=== PATIENT | female | born 2000 | race Caucasian/White ===

== ENCOUNTER → 2018-03-27 13:22 | Outpatient (CLI) | payer OTHER, SELFPAY ==
[2018-03-27 15:59] LABS: Absolute Lymphocyte Count 3.37 X10^3/ul (0.83-4.51); Basophil# 0.05 X10^3/uL; Basophil% 0.4 % (0-1); Eosinophil# 0.42 X10^3/uL; Eosinophils% 3.1 % (0-5); Lymphocyte # 3.37 X10^3/ul (4.0); Lymphocyte % 25.2 % (19-41); Mean Corp Hgb Conc 30.6 g/gl (32-36); Mean Corpuscular Hgb 21.4 pg (27.0-32.0); Mean Corpuscular Volume 70.2 fL (81-99); Mean Platelet Vol. 10.6 fl (6.2-12.0); Monocyte# 0.53 X10^3/uL; Neutrophil # 8.96 X10^3/uL (2.7-7.7); Neutrophil % 67.2 % (47-70); Platelet Count 383 K/mm3 (150-450); RBC Distribution Width SD 43.3 fl (35.1-43.9); Red Blood Count 5.13 M/mm3 (4.2-5.4); White Blood Count 13.4 K/mm3 (4.4-11.0)
[2018-03-27 16:00] LABS: Anion Gap 9 (5-15); BUN 11 mg/dL (7-18); Calcium,Total 8.7 mg/dL (8.5-10.1); Chloride 110 mmol/L (98-107); Cholesterol 170 mg/dL (200); Creatinine, Serum 0.74 mg/dL (0.55-1.02); Differential Indicated SCAN CRITERIA MET; EST Glomerular Filtration Rate 108 mL/min (>60); Est Glom Filt Rate - Afr Amer 130 mL/min (>60); Glucose 84 mg/dL (74-106); High Density Lipoprotein 42 mg/dL; POSITIVE COUNT NO; POSITIVE DIFFERENTIAL NO; POSITIVE MORPHOLOGY YES; Potassium 3.9 mmol/L (3.5-5.1); Sodium Level 143 mmol/L (136-145); Thyroid Stim Hormone (TSH) 0.54 uIU/mL (0.358-3.74); Triglycerides 88 mg/dL; Very Low Density Lipoprotein 18 mg/dL (5-40)
[2018-03-27 16:02] LABS: Hemoglobin A1c 5.4 % (4.2-6.3)
[2018-03-27 16:25] LABS: Anisocytosis RARE; Platelet Estimate ADEQUATE (ADEQ)
== END ==
PROVIDERS: Family Provider Family Medicine; PCP Family Medicine; Visit Provider Family Medicine
DX: E28.2 Polycystic ovarian syndrome (principal); R73.01 Impaired fasting glucose
CPT/HCPCS: 36415; 80048; 80061; 83036; 84443; 85025

== ENCOUNTER → 2018-09-05 10:43 | Outpatient (CLI) | payer BC, SELFPAY | PROVIDERS: Family Provider Family Medicine; PCP Family Medicine; Visit Provider Family Medicine | DX: N30.90 Cystitis, unspecified without hematuria (principal) | CPT/HCPCS: 87086 ==

== ENCOUNTER → 2019-04-23 | Outpatient (CLI) | payer BC, SELFPAY | END | disposition home or self-care (01) | LOC: LABSPEC 09:38 | PROVIDERS: Family Provider Family Medicine; PCP Family Medicine; Visit Provider Family Medicine | DX: R33.9 Retention of urine, unspecified (principal) | CPT/HCPCS: 87086 ==

== ENCOUNTER → 2019-12-21 | Outpatient (CLI) | payer BC, SELFPAY ==
[2019-12-21 18:02] LABS: Absolute Lymphocyte Count 3.27 X10^3/uL (0.83-4.51); Absolute Neutrophil Count 7.5 X10^3/uL (2.0-7.7); Basophil# 0.09 X10^3/uL; Basophil% 0.8 % (0-1); Eosinophil# 0.16 X10^3/uL; Eosinophils% 1.3 % (0-5); Hematocrit 36.7 % (37-47); Hemoglobin 10.9 g/dL (12.0-15.0); Lymphocyte # 3.27 X10^3/ul (4.0); Lymphocyte % 27.5 % (19-41); Mean Corp Hgb Conc 29.7 g/dL (32-36); Mean Corpuscular Hgb 20.6 pg (27.0-32.0); Mean Corpuscular Volume 69.5 fL (81-99); Mean Platelet Vol. 12.2 fl (6.2-12.0); Monocyte# 0.84 X10^3/uL; Monocyte% 7.1 % (0-10); NRBC Flagged by Analyzer 0 % (0-5); Neutrophil # 7.52 X10^3/uL (2.7-7.7); Platelet Count 370 K/mm3 (150-450); RBC Distribution Width CV 16.4 % (11.6-14.6); RBC Distribution Width SD 40.2 fl (35.1-43.9); Red Blood Count 5.28 M/mm3 (4.2-5.4); White Blood Count 11.9 K/mm3 (4.4-11.0)
[2019-12-21 18:03] LABS: Anion Gap 7 (5-15); BUN 8 mg/dL (7-18); BUN/Creat Ratio 12.3 RATIO (10-20); Calcium,Total 9.1 mg/dL (8.5-10.1); Chloride 110 mmol/L (98-107); Creatinine, Serum 0.65 mg/dL (0.55-1.02); EST Glomerular Filtration Rate 122 mL/min (>60); Est Glom Filt Rate - Afr Amer 148 mL/min (>60); Glucose 75 mg/dL (74-106); Iron 13 ug/dL (50-170); Potassium 3.9 mmol/L (3.5-5.1); Sodium Level 140 mmol/L (136-145)
[2019-12-21 18:08] LABS: Vitamin B12 412 pg/mL (211-911); Vitamin D,25 Hydroxy 30.2 ng/mL
[2019-12-21 18:29] LABS: Hemoglobin A1c 5.6 % (4.2-6.3)
== END | disposition home or self-care (01) ==
PROVIDERS: Visit Provider Family Medicine
DX: D50.9 Iron deficiency anemia, unspecified (principal); K90.9 Intestinal malabsorption, unspecified; F40.10 Social phobia, unspecified; E88.81 Metabolic syndrome and other insulin resistance; R53.83 Other fatigue
CPT/HCPCS: 80048; 82306; 82607; 83036; 83540; 85025

== ENCOUNTER → 2020-06-15 10:23 | Outpatient (CLI) | payer BC, SELFPAY ==
[2020-06-15 12:22] LABS: Absolute Lymphocyte Count 2.37 X10^3/uL (0.83-4.51); Absolute Neutrophil Count 4.7 X10^3/uL (2.0-7.7); Basophil# 0.06 X10^3/uL; Basophil% 0.8 % (0-1); Eosinophil# 0.05 X10^3/uL; Eosinophils% 0.7 % (0-5); Hematocrit 36.2 % (37-47); Hemoglobin 10.8 g/dL (12.0-15.0); Lymphocyte # 2.37 X10^3/ul (4.0); Lymphocyte % 31.4 % (19-41); Mean Corp Hgb Conc 29.8 g/dL (32-36); Mean Corpuscular Hgb 20.6 pg (27.0-32.0); Mean Corpuscular Volume 69.1 fL (81-99); Monocyte# 0.33 X10^3/uL; Monocyte% 4.4 % (0-10); NRBC Flagged by Analyzer 0 % (0-5); Neutrophil # 4.73 X10^3/uL (2.7-7.7); Neutrophil % 62.6 % (47-70); Platelet Count 277 K/mm3 (150-450); RBC Distribution Width CV 19.3 % (11.6-14.6); RBC Distribution Width SD 46.7 fl (35.1-43.9); Red Blood Count 5.24 M/mm3 (4.2-5.4); White Blood Count 7.6 K/mm3 (4.4-11.0)
[2020-06-15 12:44] LABS: Anion Gap 6 (5-15); BUN 9 mg/dL (7-18); BUN/Creat Ratio 12.2 RATIO (10-20); Calcium,Total 8.6 mg/dL (8.5-10.1); Chloride 115 mmol/L (98-107); Creatinine, Serum 0.74 mg/dL (0.55-1.02); EST Glomerular Filtration Rate 105 mL/min (>60); Est Glom Filt Rate - Afr Amer 127 mL/min (>60); Glucose 85 mg/dL (74-106); Iron 16 ug/dL (50-170); Potassium 3.7 mmol/L (3.5-5.1); Sodium Level 141 mmol/L (136-145); Thyroid Stim Hormone (TSH) 1.07 uIU/mL (0.358-3.74)
[2020-06-15 18:47] LABS: Vitamin B12 440 pg/mL (211-911)
== END ==
PROVIDERS: PCP Family Medicine; Visit Provider Family Medicine
DX: D50.9 Iron deficiency anemia, unspecified (principal); E55.9 Vitamin D deficiency, unspecified; F40.10 Social phobia, unspecified; R42 Dizziness and giddiness
CPT/HCPCS: 36415; 80048; 82306; 82607; 83540; 84443; 85025

== ENCOUNTER 2020-07-06 09:00 | Outpatient (RCR) | payer BC, SELFPAY ==
--- NOTE | 2020-07-06 09:00 | BH.COMM_ITS ---
Communication Note - Communication with Client Communication Note: Met with pt to complete intial paperwork. No changes since pre-admission screening. Completed [place] Suicide Screening with low risk. Denies any SI in the past month.
--- NOTE | 2020-07-06 09:02 | BH.SGPN.GN ---
Behaviors/Verbalizations/Mental Status: []Client alert and oriented, casual dress, hygiene tended to. Eye contact fair. Motor activity appropriate. Speech within normal limits. Affect flat, mood depressed. Thoughts linear, logical, no signs of hallucinations or delusions. Reviewed client?s symptom tracker, pt denies current suicidal thoughts or intention to date. Client Response/Progress/Benefit: []Pt responded well to session AEB pt openly sharing thoughts and feelings and appeared to listen attentively to others. Pt stated she is seeking help because she is stressed about college. Pt shared she has been told she isn't allowed to return to her current college due to breaking academic probation rules. Pt stated he previous college also won't accept her back. Pt reported she is feeling hopeless because doesn't know what is going to happen if can't finish school. Pt stated she struggled in school this past semester due to her mental health. Pt seemed to benefit from support and validation from peers. Pt's first day in IOP. Pt to continue IOP to increase healthy coping, improve daily functioning and prevent decompensation. Narrative Note: []
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
--- NOTE | 2020-07-06 10:15 | BH.SGPN.GN ---
Behaviors/Verbalizations/Mental Status: []Client alert and oriented, casually dressed and groomed. Eye contact fair. Motor activity appropriate. Speech within normal limits. Affect constricted, anxious, dysthymic. Thoughts linear, logical, no signs of hallucinations or delusions. Client Response/Progress/Benefit: []Client new to IOP program. She was an engaged participant AEB client taking notes, providing some input throughout discussion, and attentively listening to peers. Client connected with how having a negative perspective can keep you stuck, prevent a person from getting help, and cause worsening mental health symptoms. Client shared that ?your peer group can have a big influence on your perspective and keep you negative?. Worked with group to identify how negative perspective can impact mental health which included: self-fulfilling prophecy, maintain unhealthy mental health cycles, and lead to more negative thinking.?Client attentive and taking notes as group discussed ways a positive perspective can impact mental health such as: be more willing to keep trying when faced with setbacks, be more open to new experiences and new relationships, as well as improve self-confidence. Client appeared to benefit from increasing understanding of mental health benefits of a positive perspective and potential consequences to progress when perspective is negative. Client will continue IOP tx to prevent decompensation, improve emotional regulation skills, and improve daily functioning. Narrative Note: []
[2020-07-06 10:58] VITALS: BP 104/67; PULSE 92
--- NOTE | 2020-07-06 11:17 | BH.SGPN.GN ---
Behaviors/Verbalizations/Mental Status: []Eye contact is good. Motor activity is appropriate. Appearance is casual. Speech is Appropriate. Mood is anxious. Affect is flat. Thoughts are linear and logical. No evidence of psychosis. Client Response/Progress/Benefit: []Client was an active participant in group discussion. Attentive during psychoeducation. Active participant in group discussion on the impact of perspective on how we view ourselves. Client worked with the group to develop a working definition of the term strengths and the importance of recognizing one's strengths. Client was given a worksheet and was asked to soboba at least 3 strengths which included: artistic ability, curiosity, and being open-minded. Group then worked together to identify strategies to remind themselves of their strengths and client selected using positive affirmations as their strategy. Benefited from increased awareness of the role of perspective and strengths in daily mental health wellness. Will continue IOP tx to prevent decompensation, improve mood stability, and improve functioning. Narrative Note: []
--- NOTE | 2020-07-08 09:00 | BH.SGPN.GN ---
Behaviors/Verbalizations/Mental Status: [] Eye contact is good. Motor activity is appropriate. Appearance is neat. Speech is Appropriate. Mood is anxious. Affect is congruent. Thoughts are linear and logical. No evidence of psychosis. Reviewed daily check in sheet and no reports of suicidal ideations or intent. Client Response/Progress/Benefit: [] Pt spoke when prompted. Attentive. Pt disclosed how anxiety impacts her daily life and leads to isolation. Pt reports fear of driving and making left-hand turns. States that her fear is so bad that she has her groceries delivered and relys on her support to get anything. Being in IOP is not that bad however the drive in the morning here is the most anxious. Reports that she thinks about all the worst case scenarios all group about the drive home. Also discussed her anxiety when in public feeling that other are watching her and judging her. States I feel like I'm not good at being an adult. Numerous cognitive distortions. No progress noted per pt report. Group was supportive which was beneficial. Plan is to remain in IOP to prevent decompensation, improve functioning, and increase health coping skills for anxiety. Narrative Note: []
--- NOTE | 2020-07-08 10:15 | BH.SGPN.GN ---
Behaviors/Verbalizations/Mental Status: []Client alert and oriented, casually dressed and appropriately groomed. Eye contact fair to good. Motor activity appropriate. Speech within normal limits. Affect constricted, mood anxious and euthymic. Thoughts linear, logical, no signs of hallucinations or delusions. Client Response/Progress/Benefit: []Client mostly engaged during session AEB taking notes, providing some input, and listening attentively to others. Client listened as peers worked on defining goals and brainstorming the benefits of goal setting. Benefits included: improved motivation, increased self-confidence, sense of accomplishment, and less stress. Discussed connecting with several of the benefits shared by fellow participants. Contributed some and actively listened as group discussed the barriers that keep people from either setting or following through with goals. Client identified connecting with the personal barriers shared such as negative self-talk, not prioritizing own needs, and lack of resources. Reported that for her limited financial resources have kept her from working towards personal goals. Client attentive and contributing during psychoeducation on SMART goals. Appeared to benefit from learning the mental health benefits of setting goals using SMART criteria. Progress limited as client new to IOP program. Client to continue IOP tx to promote healthy coping, improve mood stability and symptom management, and prevent decompensation. Narrative Note: []
--- NOTE | 2020-07-08 11:25 | BH.SGPN.GN ---
Behaviors/Verbalizations/Mental Status: [] Eye contact is good. Motor activity is appropriate. Appearance is neat. Speech is Appropriate. Mood is anxious. Affect is congruent. Thoughts are linear and logical. No evidence of psychosis. Client Response/Progress/Benefit: [] Pt was an active participant in group discussions and activities. Along with group members was able to identify barriers during group beach ball activity (over-thinking, environmental restrictions, self-doubt, and what-if thinking) and strategies they utilized to overcome these barriers (communicating, encouraging others). Pt choose not to share her SMART goal for the week, however did appear to be writing during the group. Benefited from education on goal-setting. Narrative Note: []
--- NOTE | 2020-07-11 10:19 | BH.SGPN.GN ---
Behaviors/Verbalizations/Mental Status: []Client alert and oriented, neatly dressed and groomed. Eye contact good. Motor activity appropriate. Speech within normal limits. Affect flat, mood anxious and dysthymic. Thoughts linear, logical, no signs of hallucinations or delusions. Client Response/Progress/Benefit: []Client was an attentive participant in group discussion and engaged during the activity. Client was quiet throughout session, but she took notes and nodded. Client agreed with peers that there are internal and external forces in life which impact personal growth. Group worked together to come up with common negative forces in life which can hold them back from growth. These included; cognitive distortions, toxic people, not setting boundaries, and holding in emotions. Group then worked together to identify common positive forces which help them grow. These included; healthy coping skills, positive support, positive self-talk, and self-care. Benefited AEB increased insight and awareness on the impact of negative and positive forces on mental wellness. First week of IOP tx. Will continue IOP tx to prevent decompensation, learn and apply healthy coping skills, and improve daily functioning that has been impaired due to anxiety. Narrative Note: []
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
== END 2020-07-11 23:59 ==
LOC: BHIOP 09:00
PROVIDERS: PCP Family Medicine; Referring Provider Psychiatry & Neurology Psychiatry; Visit Provider Psychiatry & Neurology Psychiatry
DX: F31.81 Bipolar II disorder (principal); F42.2 Mixed obsessional thoughts and acts; F43.10 Post-traumatic stress disorder, unspecified; F41.8 Other specified anxiety disorders
CPT/HCPCS: H0035; 90834; 90853

== ENCOUNTER 2020-07-13 09:00 | Outpatient (RCR) | payer BC, SELFPAY ==
[2020-07-12 00:45] VITALS: BP 104/67; PULSE 92
--- NOTE | 2020-07-13 11:11 | BH.SGPN.GN ---
Behaviors/Verbalizations/Mental Status: []Client alert and oriented, neatly dressed and groomed. Eye contact fair. Motor activity appropriate. Speech soft Affect flat, mood anxious. Thoughts linear, logical, no signs of hallucinations or delusions. Client Response/Progress/Benefit: []Client engaged participant as evidenced by client taking notes throughout discussion and listening attentively to peers. Client participated in the discussion of how each resiliency component can help increase personal resiliency. Client identified current resiliency traits client currently possesses and how these can continue to help client in treatment. Client identified personal resilience traits to include accepting change is a part of living, moving towards goals, and self-awareness. Client shared she has recently experienced several hardships which has made it hard for client to remind herself of personal resilience traits. Client appeared to benefit from connecting with peers and gaining perspective. Progress noted as client shared when prompted. First week of IOP tx. Will continue IOP to prevent decompensation, learn healthy coping skills, and improve mood stability. Narrative Note: []
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
--- NOTE | 2020-07-13 14:01 | BH.PSY.EVA_ITS ---
Initial Treatment Plan - Patient Information Visit Information: ADMISSION DATE: EXPECTED LOS: 4-6 weeks - Problems/Symptoms Problem #1:: Depression Symptom:: sadness, anhedonia, hopelessness, biological disruption of sleep, dec reased concentration, passive thoughts Problem #2:: ANxiety Symptom:: Obssessive thoughts, checking rituals, avoidance, flashbacks, panic attacks
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
--- NOTE | 2020-07-18 10:12 | BH.SGPN.GN ---
Behaviors/Verbalizations/Mental Status: []Client alert and oriented, neatly dressed and groomed. Eye contact good. Motor activity appropriate. Speech within normal limits. Affect constricted, mood anxious. Thoughts linear, logical, no signs of hallucinations or delusions. Client Response/Progress/Benefit: []Client was an active participant as evidenced by providing input and taking notes throughout discussion. Client connected with the discussion about how distorted thought patterns can reinforce mental health symptoms and impact self-worth. Client shared a personal example of a distorted thought pattern that impacted client?s social functioning. Client noted that she connects with all or nothing thinking and client tends to be perfectionistic. Client shared that distortions often lead to self-criticism and can cause a downward spiral. Appeared to benefit from increasing awareness of cognitive distortions and how they can impact emotions and behaviors. Will continue IOP tx to prevent decompensation, improve mood stability, and improve daily functioning that has been impaired by MH symptoms. Narrative Note: []
--- NOTE | 2020-07-18 11:15 | BH.SGPN.GN ---
Behaviors/Verbalizations/Mental Status: []Client alert and oriented, casual dress, hygiene tended to. Eye contact fair. Motor activity appropriate. Speech within normal limits. Affect constricted, mood dysthymic and anxious. Thoughts linear, logical, no signs of hallucinations or delusions Client Response/Progress/Benefit: []Client was an engaged participant AEB client nodding head to others comments, taking notes, and completing worksheet. Client attentive during psychoeducation and additional discussion on cognitive distortions. Client engaged in discussion about how to reframe distorted thoughts into more realistic, rational statements. Client shared her distorted thought is I should be further in my life by now. Client able to reframe distorted thought to I can go at my own pace if I focus on following my SMART goals. Client seemed to benefit from practicing identifying and reframing distorted thoughts. To continue IOP to continue use of healthy coping, decrease anxiety, and prevent decompensation. Narrative Note: []
--- NOTE | 2020-07-22 11:08 | BH.MDN ---
Multi-Disciplinary Note - Note 60-min Individual Time Started:: 09:08 Date: 07/22/20 Purpose of session/treatment goals addressed:: The purpose of this session was to address current symptoms and psychosocial stressors. Another goal was to practice cognitive restructing and develop steps for client's fear ladder. Eye Contact:: Good Motor Activity:: Appropriate Appearance:: Neat Speech:: Soft Mood:: Anxious, Dysthymic Affect:: Congruent - tearful Thoughts:: Linear, Logical, No evidence of hallucinations/delusions noted Staff Interventions:: Therapist used active listening and open-ended questions to explore client's current symptoms and psychosocial stressors. Therapist used strengths perspective to highlight resilience traits. Therapist helped client complete a fear ladder and create a goal for this weekend. Therapist used cognitive restructuring to help client weigh the pros and cons of making a change. Therapist gave client a decisional balance worksheet for homework. Client Response:: Client responded well to session, open to meeting with therapist. Client shared feeling overwhelmed due to family stressors and living situation. Client gave some background on her family dynamic and it appears the environment is toxic per client's report. Client states she has talked with her outpatient therapist about this and together they are working on client applying for disability and housing. Client receptive to this therapist following up with outpatient therapist for continuity of care. Discussed different steps client can begin to take to gain independence. Client receptive to gentle thought challenging and willing to complete a decisional balance exercise for homework. Client worked on her fear ladder during session which ranked anxiety producing activities from least to most anxiety producing. At the bottom of client's ladder were sitting in her car and backing out of her driveway. Client is to work on sitting in her car and visualizing driving while practicing calming skills. Risks/Concerns:: Client denies any suicidal ideations, plan, or intent as of 07/22/20. Client is future oriented and motivated for treatment. Progress Toward Goals/Plan:: Client is demonstrating progress towards treatment goals AEB client's consistent attendance. Client does well in individual sessions with verbalizing symptoms and stressors, but continues to be mostly passive in group. Client endorses severe anxiety that impacts client's ability to work, drive, and socialize. Client reports plan to apply for disability and [place]. Client reports ruminations and fear of driving on a daily basis. Additionally, client has a depressed mood and family stressors that exacerbate symptoms. Will continue IOP tx to prevent decompensation, increase healthy coping skills, and improve daily functioning. Time Stopped:: 10:09
--- NOTE | 2020-07-22 11:20 | BH.SGPN.GN ---
Behaviors/Verbalizations/Mental Status: []Client alert and oriented, neatly dressed and groomed. Eye contact good. Motor activity appropriate. Speech within normal limits. Affect constricted, mood anxious. Thoughts linear, logical, no signs of hallucinations or delusions. Client Response/Progress/Benefit: []Client engaged in session AEB listening attentively to others, providing input when prompted, and taking notes throughout. Client remained attentive during discussion about the 4 A's of managing stress and discussed connecting with the various benefits of each. Client reported she would like to work on the strategy of accepting stressors out of client?s control. Client shared she will remind herself that ?I?ve done what I could.? Client seemed to benefit from increased awareness of the impact of stress on mental health and increasing repertoire of stress management strategies. Progress noted as client?s attendance has been consistent. Will continue IOP tx to prevent decompensation, reduce avoidance behaviors, and improve daily functioning. Narrative Note: []
--- NOTE | 2020-07-26 09:05 | BH.SGPN.GN ---
Behaviors/Verbalizations/Mental Status: [] Eye contact is good. Motor activity is appropriate. Appearance is casual. Speech is Appropriate. Mood is anxious. Affect is congruent. Thoughts are linear and logical. No evidence of psychosis. No reports of suicidal ideations or intent. Client Response/Progress/Benefit: [] Pt participated when prompted. Emotion for today is stressed. Daily symptoms tracker notes 4/5 for depression, anxiety, and anger. She reports that similar to another group member she was given an ultimatum by her grandparents. Pt reports that her grandparents are requesting that she start to pay them rent for living with them. This has caused increased stress and she immediately started looking for a job. She has an interview with [employer] this afternoon. She believes that she will not succeed at this job as she worked there in the past. 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 Ruminations that she is regressing as she will have to work at same job she had when she was 17. Group was supportive and attempted to reframe and challenge pt's thoughts of regression however limited benefit. Pt did report that her anxiety regarding driving has decreased. No progress noted. Will continue in IOP to prevent decompensation, increase healthy coping, and improve functioning. Narrative Note: []
--- NOTE | 2020-07-26 11:07 | BH.SGPN.GN ---
Behaviors/Verbalizations/Mental Status: []Client alert and oriented, neatly dressed and groomed. Eye contact good. Motor activity appropriate. Speech within normal limits. Affect flat, mood anxious and dysthymic. Thoughts linear, logical, no signs of hallucinations or delusions. Client Response/Progress/Benefit: []Client responded well to session AEB client listening attentively to others and providing some input during group discussion on the pay offs and costs of the different communication styles. Client was passive during the activity. Attentive during psychoeducation on assertiveness strategies to improve communication, and client selected an assertiveness skill to practice. Client selected the skill be mindful by remembering the objective of the interaction. Client selected this skill as client shared ?I tend to get sidetracked by old hurts.? Client seemed to benefit from increasing awareness of healthy strategies to improve communication. Will continue IOP tx to prevent decompensation, reduce avoidance behaviors, and improve daily functioning. Narrative Note: []
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
--- NOTE | 2020-07-29 10:00 | BH.SGPN.GN ---
Behaviors/Verbalizations/Mental Status: []Client alert and oriented, well dressed and groomed. Eye contact good. Motor activity appropriate. Speech within normal limits. Affect constricted, mood anxious. Thoughts linear, logical, no signs of hallucinations or delusions. Client Response/Progress/Benefit: []Client engaged in session AEB client providing input throughout discussion, taking notes and listening attentively to peers. Client assisted group with identifying consequences of not having healthy boundaries. This included: feeling overwhelmed, isolation, and worsening mental health symptoms. Client was attentive during psychoeducation on the different kinds of boundaries and gave an example of time boundaries.. Client seemed to benefit from increased awareness of how poor boundaries can negatively impact mental health. Progress noted in client?s report of driving more this week and having reduced anxiety. Will continue IOP tx to continue use of healthy coping, improve daily functioning, and prevent decompensation. Narrative Note: []
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
--- NOTE | 2020-08-02 09:05 | BH.SGPN.GN ---
Behaviors/Verbalizations/Mental Status: [] Eye contact is good. Motor activity is appropriate. Appearance is casual. Speech is Appropriate. Mood is euthymic. Affect is full. Thoughts are linear and logical. No evidence of psychosis. Reviewed daily check in sheet and no reports of suicidal thoughts. Client Response/Progress/Benefit: [] Pt participated when prompted. Attentive. Emotion for today is nervous stating that she has a job interview this afternoon. Daily symptom tracker notes 12/14 for anxiety, depression, and anger. Reports several mental health wins over the weekend stating that she was able to read a whole book, wrote 10,000 words in her book, and feels accomplished. Increased motivation and reports feeling accomplished. Holiday stress and depression related to holidays being different this year due to pandemic. Progress noted per pt report. Benefited from group support and encouragement. Will continue in IOP to maintain gains and increase healthy coping. Narrative Note: []
--- NOTE | 2020-08-02 10:10 | BH.SGPN.GN ---
Behaviors/Verbalizations/Mental Status: []Client alert and oriented, neatly dressed and groomed. Eye contact good. Motor activity appropriate. Speech within normal limits. Affect flat, mood euthymic and anxious. Thoughts linear, logical, no signs of hallucinations or delusions. Client Response/Progress/Benefit: []Client receptive of session, attentive in discussion and activity. Client connected with personal and interpersonal consequences of not managing emotions. Client provided feedback to peers and gave examples of healthy coping skills. Client helped group identify barriers that impact one?s ability to communicate when emotions are high. These barriers included; negative thoughts, anxiety, and shutting down. Group discussed why it is important to be able to communicate effectively when emotions are high. Client participated in the activity and did well to manage emotions throughout. Client appeared to benefit from increasing awareness of how emotions can impact communication and practicing in the moment coping skills. Progress shown AEB client?s report of driving more and having increased motivation. Will continue IOP tx to increase mood stability, reduce avoidance, and improve daily functioning. Narrative Note: []
--- NOTE | 2020-08-03 10:10 | BH.SGPN.GN ---
Behaviors/Verbalizations/Mental Status: [] Eye contact is good. Motor activity is appropriate. Appearance is neat. Speech is Appropriate. Mood is depressed. Affect is flat. Thoughts are linear and logical. Client Response/Progress/Benefit: [] Pt participated in group activity however did not provide verbal input. Attentive during psychoeducation on the stages of change (pre-contemplation, contemplation, preparation, action, and maintain), barriers to make changes, and the benefits of change. Benefited by increasing awareness of the emotions of change as well as benefits and obstacles to making changes. Narrative Note: []
--- NOTE | 2020-08-03 11:05 | BH.SGPN.GN ---
Behaviors/Verbalizations/Mental Status: []Client alert and oriented, neatly dressed and groomed. Eye contact good. Motor activity appropriate. Speech within normal limits. Affect constricted, mood euthymic. Thoughts linear, logical, no signs of hallucinations or delusions. Client Response/Progress/Benefit: []Client responded well to session AEB taking notes and contributing when prompted. Client listened during psychoeducation on the change process and different emotions in each stage of change. Client identified a change client would like to make to improve mental health which was to ?move out of my current living situation? Client shared she wants to work on this as client?s current environment is toxic. Client reports belief he is currently in the preparation stage as client has reached out to resources and found a job, but client has not yet got an apartment. Client identified personal barriers to change and reported she plans to create SMART goals to keep client on track. Appeared to benefit from identifying what stage of change client is in and identifying strategies to overcome barriers. Will continue IOP tx to stabilize mood, improve daily functioning, and increase the use of healthy coping skills. Narrative Note: []
--- NOTE | 2020-08-03 12:09 | PCM.BH.PN_ITS ---
Progress Note Progress Note: History of Present Illness/Interim History: [] Patient is a 19-year-old single female who is seen in follow-up at the [facility] behavioral health IOP program. I last saw the patient 3 weeks ago and at that time I added 2 mg of Abilify in the morning. The patient has not started this medication yet because it she says it took the pharmacy a long time to fill the prescription. Her anxiety seems to be much better and she feels she is learning good skills in the IOP program to manage from her symptoms. Her mood she describes as more stable. She feels that she might be a little hypomanic now and she bases this on the fact that she has been spending more money lately and went on a dating mack which is her thing she does when she is hypomanic. She is getting about 5 hours of sleep at night which is about the same amount of sleep she was getting 2-1/2 weeks ago when I saw her. She has been able to leave the house for the IOP program and does feel again that she is benefiting from it. Her symptoms of obsessions and some of her rituals are a little bit improved. Current Psychiatric Medications: [] Abilify 10 mg p.o. nightly; Topamax 100 mg p.o. nightly; vitamin D2; gabapentin?did not start this yet either. Mental Status Examination: [] The patient is a 19-year-old female who is seen wearing a mask due to the pandemic and is casually dressed and groomed with good hygiene. She has no psychomotor agitation or retardation. Her eye contact is good and her speech is normal rate and rhythm and fluent. There is no rapid or pressured speech. Mood is euthymic. Affect is constricted to tending towards full. Thought process is organized and goal-directed. Thought content: There is evidence of some passive thoughts of but no evidence of suicidal or homicidal ideation. No evidence of hallucinations or delusions. Retyped reality testing is intact. Judgment is intact. Insight: Some present. Impulsivity: Moderate Diagnoses: [] Bergoo I: []. Bipolar 2 disorder, OCD, PTSD, generalized anxiety disorder Bergoo II: [] Mild cluster B traits Bergoo III: [] Status post Sruthi-en-Y obesity surgery, history of PCOS Bergoo IV:[]] Primary support, education, work, financial issues Plan: [] Patient will continue the IOP program at [facility] as the structure, support, education, individual and group therapy will hopefully prevent worsening of the patient's symptoms. She felt safe during the interview and if it anytime she does not feel safe she will let us know or go to the emergency room. The risk, options, possible complications and side effects of the medications were discussed with the patient and she understands and accepts these. She agrees to try to improve her compliance with medication on the weekends and she agrees to start the Abilify 2 mg p.o. in the morning in addition to her evening dose of 10 mg of Abilify. She is encouraged again to set an alarm on her phone to take her evening medications on the weekends. She will continue to follow-up with her outpatient's and psychiatric providers.
--- NOTE | 2020-08-03 13:49 | BH.MDN_ITS ---
Multi-Disciplinary Note - Note 45-min Individual Time Started:: 09:15 Date: 08/03/20 Purpose of session/treatment goals addressed:: The purpose of this session was to address current symptoms and develop a coping skill plan. Other topics included thought challenging. Eye Contact:: Good Motor Activity:: Appropriate Appearance:: Neat Speech:: Appropriate Mood:: Euthymic Affect:: Constricted Thoughts:: Linear, Logical, No evidence of hallucinations/delusions noted Staff Interventions:: Therapist used active listening and gentle thought challenging while exploring client's current stressors and symptoms. Therapist helped client explore warning signs for hypomania and depression as well as develop coping strategies to manage symptoms. Therapist gave client homework to complete the worksheet. Client Response:: Client responded well to session, open to meeting with therapist. Client shared concern that she is experiencing hypomania. Client reports reduced sleep, increased energy, some impulsive spending, and more risk taking behaviors. Client would like to work on developing a plan to better manage her bipolar symptoms. Client created a list of behaviors, things, and thoughts that would make hypomania and depression worse. For hypomania client identified: not taking medication, downloading dating apps, buying items online, and not setting boundaries. For depression, client identified: isolating, not taking medication, and negative self-talk. Discussed strategies to help reduce impulsivity and improve emotional regulation. Strategies included: deleting dating apps, only using cameron, use a habit tracker for medication accountability, and set boundaries by not overcommitting. Client is to complete strategies for depression for homework. Risks/Concerns:: Client denies any suicidal ideations, plan, or intent as of 08/03/20. Client reports symptoms of hypomania this week and also has been reporting medication noncompliance. Progress Toward Goals/Plan:: Client reports symptoms of hypomania AEB self- report of increased risk taking, impulsivity, and reduced sleep. Client agrees to improve medication compliance and to practice skills discussed in session today. Client has shown progress with reaching out to more supports, driving, and client recently got a job. Client continues to struggle with avoidance behaviors, indecisiveness, anxiety, mood instability, and negative thinking. Client is motivated to move out and become more independent. Will continue IOP tx to prevent decompensation, improve mood stability, and better regulate emotions. Time Stopped:: 10:02
--- NOTE | 2020-08-11 09:10 | BH.SGPN.GN ---
Behaviors/Verbalizations/Mental Status: [] Eye contact is good. Motor activity is appropriate. Appearance is neat. Speech is Appropriate. Mood is anxious. Affect is congruent. Thoughts are linear and logical. No evidence of psychosis. Reviewed daily check in sheet and no reports of suicidal ideations or intent. Client Response/Progress/Benefit: [] Pt spoke when prompted. Emotion for today is Stressed. Discussed mental health wins as being off probation at college which means that she is able to re-enroll in classes. She reports being happy and excited about this. Also reports that she is starting her new job tomorrow and has an interview thi9s afternoon for a job that she is looking forward to. Daily symptom tracker notes 5/5 for depression, anxiety, and anger which she did not elaborate on in group. Progress noted in regards to external events however per tracker continue to report significant issues with mood. Benefited from group support and encouragement. Will continue in IOP to increase healthy coping skills, prevent decompensation, and improve functioning. Narrative Note: []
--- NOTE | 2020-08-11 10:16 | BH.SGPN.GN ---
Behaviors/Verbalizations/Mental Status: []Client alert and oriented, well groomed and dressed. Eye contact good. Motor activity appropriate. Speech within normal limits. Affect flat, mood anxious. Thoughts linear, logical, no signs of hallucinations or delusions. Client Response/Progress/Benefit: []Client an active participant during group AEB client contributing input to discussion, able to make connections throughout. Client agreed with group that it is important to have a variety of social supports. Group identified benefits of social support as gaining different perspectives, awareness, accountability, and encouragement. Client also helped group identify barriers to using support. Client shared she currently does not have a strong support system due to some family being toxic. Appeared to benefit from gaining awareness of barriers that keep people from seeking social support as well as identifying the benefits of increasing support. Client progress noted as client has been accessing local resources and applying for jobs. Will continue IOP tx to promote mood stability and help manage family stress. Narrative Note: []
--- NOTE | 2020-08-11 11:18 | BH.SGPN.GN ---
Behaviors/Verbalizations/Mental Status: []Client alert and oriented, neatly dressed and groomed. Eye contact good. Motor activity appropriate. Speech within normal limits. Affect constricted, mood dysthymic and anxious. Thoughts linear, logical, no signs of hallucinations or delusions. Client Response/Progress/Benefit: []Client an active participant throughout AEB contributing to discussion, taking notes, and providing supportive feedback. Client participated in the group activity highlighting the various barriers to effectively utilizing supports and strategies the group used. Client participated in discussion of the four types of support (emotion, tangible, informational, and social) and gave examples for all types. Client reports wanting to work on increasing emotional support. Client plans to do this by journaling when toxic family members trigger her rather than withdrawing. Client seemed to benefit from identifying the type of support she wants to improve. Client is showing progress with increasing tangible support, but client continues to struggle with family stressors and housing issues. Client to continue in IOP tx to reinforce healthy coping skills and help manage stress triggered by family. Narrative Note: []
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
== END 2020-08-11 23:59 ==
LOC: BHIOP 09:00
PROVIDERS: PCP Family Medicine; Referring Provider Psychiatry & Neurology Psychiatry; Visit Provider Psychiatry & Neurology Psychiatry
DX: F31.81 Bipolar II disorder (principal); F42.9 Obsessive-compulsive disorder, unspecified; F43.10 Post-traumatic stress disorder, unspecified; F41.8 Other specified anxiety disorders; Z98.84 Bariatric surgery status; E28.2 Polycystic ovarian syndrome; Z79.899 Other long term (current) drug therapy
CPT/HCPCS: H0035; 90834; 90837; 90853

== ENCOUNTER 2020-08-18 09:00 | Outpatient (RCR) | payer BC, SELFPAY ==
[2020-08-12 00:37] VITALS: BP 104/67; PULSE 92
--- NOTE | 2020-08-18 09:05 | BH.SGPN.GN ---
Behaviors/Verbalizations/Mental Status: [] Eye contact is good. Motor activity is appropriate. Appearance is casual. Speech is Appropriate. Mood is anxious. Affect is congruent. Thoughts are linear and logical. No evidence of psychosis. Reviewed daily check in sheet and no reports of suicidal thoughts. Client Response/Progress/Benefit: [] Pt was an active participant in group discussion. Group watched short video on blame. Pt shared her thoughts and shared examples of when she blamed others and the negative impacts of blaming. Shared mental health wins which included scheduling her classes for the upcoming year and utilizing skills to manage a recent panic attack. Reports that she started a new job last week which wasn't for me. Reports extensive anxiety while at the job however I used some grounding skills and was able to make it through the day. Also decreased anxiety regarding driving and has been looking into getting her own apartment. Progress noted per pt report. Benefited from discussion and education on blame as well as support from peers. Will continue in IOP to maintain gains and prevent decompensation. Narrative Note: []
--- NOTE | 2020-08-18 10:05 | BH.SGPN.GN ---
Behaviors/Verbalizations/Mental Status: []Client alert and oriented, casually dressed and groomed. Eye contact fair. Motor activity appropriate. Speech within normal limits. Affect congruent, mood euthymic. Thoughts linear, logical, no signs of hallucinations or delusions. Client Response/Progress/Benefit: []Client engaged during session AEB client contributing thoughts at times during discussion and completing worksheet. Connected with discussion on crisis and how coping with external crises by using unhealthy coping skills could result in a personal crisis. Group reflected on the importance of having awareness of personal warning signs in order to prevent reaching crisis point. Group identified potential warning signs for crisis and client completed the personal warning signs worksheet. Client identified personal crisis warning signs to include: increased impulsiveness, feeling disconnected and not caring for self. Client benefited by increasing awareness of what leads to crisis and personal warning signs. Progress noted in client's report of applying to jobs and returning to college. Pt will discharge from [facility] today. Narrative Note: []
--- NOTE | 2020-08-18 10:49 | BH.IGGP_ITS ---
Aftercare Plan - Demographics Treatment End Date:: 08/18/20 Psychiatrist:: Tita Higgins Psychiatrist Office #:: [phone] [facility] [place] Therapist:: Elisa Rinaldi Therapist Phone #:: [phone] - Medications Home Medications: Home Medications Aripiprazole [Abilify] 10 mg PO DAILY 07/06/20 Ergocalciferol (Vitamin D2) [Vitamin D2] 50,000 unit PO QWEEK 07/06/20 Ferrous Sulfate 325 mg PO DAILY 07/06/20 Gabapentin [Neurontin] 200 mg PO DAILY 07/06/20 Pantoprazole Sodium 20 mg PO DAILY 07/06/20 Topiramate [Topamax] 100 mg PO DAILY 07/06/20 - Plan Details Progress/Aftercare Plan Details:: Jennifer has made great strides since starting IOP as shown by her reduced symptoms and progress towards goals. When Jennifer started IOP she was experiencing severe depression and anxiety symptoms that were impacting all areas of her life. Jennifer was dealing with numerous stressors that all felt too overwhelming. At discharge, Kurts overall symptoms have decreased by 47% since admission. Depression decreased by 63%, anxiety by 42%, and OCD symptoms by 63%. Jennifer has worked hard to step outside her comfort zone with work, driving, and gaining independence. Jennifer is working with a caseworker protective services to help obtain housing and she plans to return to school. Jennifer has used opposite action, grounding, and many other coping skills to help manage mental health symptoms. Jennifer self-reports progress in the following areas: grounding to manage panic, thought reframing, self- compassion, enjoying more activities, opposite action, and advocating for self. Jennifer plans to follow up with her outpatient psychiatrist and caseworker protective services. Jennifer?s outpatient therapist is retiring, and Jennifer is interesting in starting counseling at [facility]. Strategies for Success:: 1. Grounding skills such as deep breathing, music, counting, 5-senses. 2. Thought reframing and positive self-talk. 3. Opposite action to help with motivation, depression, and anxiety. 4. Communicating needs with healthy supports. 5. Journaling 6. Self-compassion 7. Pros and cons lists to help with decisions. 8. Refer to your IOP binder when needed - Appointments Appointments/Referrals to Other Services:: 1. Keep following up with Padmini once a week through August. 2. Call Jeanna to get set up with counseling. Either with Vania or Elza. 3. Follow up with your caseworker protective services. 4. Follow up with Eva wilder on 08/26/20. 5. IOP aftercare group every from 2-3:30pm
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
--- NOTE | 2020-08-18 13:55 | BH.MDN ---
Multi-Disciplinary Note - Note 30-min Individual Time Started:: 11:50 Date: 08/18/20 Purpose of session/treatment goals addressed:: The purpose of this session was to review client's progress and review strategies that will promote mood stability and gains made in IOP. Another goal was to discuss discharge recommendations and process any current stressors. Eye Contact:: Good Motor Activity:: Appropriate Appearance:: Neat Speech:: Appropriate Mood:: Anxious Affect:: Congruent - tearful at times Thoughts:: Racing, No evidence of hallucinations/delusions noted Staff Interventions:: Therapist used open-ended questions to explore client's thoughts on personal progress. Therapist also provided emotional support and gentle thought challenging to help client process her current stressors. Therapist reviewed supports and coping skills with client to promote gains and prevent setbacks. Therapist discussed aftercare plan with client and used strengths-perspective to empower client on the goals client has accomplished. Therapist gave client a quote collage for closure. Client Response:: Client responded well to session, open to meeting with therapist. Client reports feeling anxious about the upcoming changes in her life-finding employment and moving on her own. Client endorses ruminations and catastrophizing thinking which client was receptive to challenging. Discussed supports that can help client as well as self-advocacy strategies. Client reflected on her progress during IOP and reported increased use of grounding skills to prevent panic, increased ability to challenge negative thoughts, and using opposite action. Client self-identified healthy coping skills that have helped client which included: challenging negative thoughts, reaching out to supports, opposite action, calming skills, and pros and cons lists. Risks/Concerns:: Client denies any suicidal ideations, plan, or intent as of 08/18/20. Client is future oriented and motivated. Progress Toward Goals/Plan:: Client will discharge from IOP tx today and transition to outpatient level of care. Client has made progress since admission AEB her reduced DSM-5 scores, self-report of increased ability to manage symptoms, and improved functioning. Client still has numerous stressors in her life that are impacting her mental health and mood that client will continue to work on during outpatient counseling. Time Stopped:: 12:20
== END 2020-08-18 14:00 | disposition home or self-care (01) ==
LOC: BHIOP 09:00
PROVIDERS: PCP Family Medicine; Referring Provider Psychiatry & Neurology Psychiatry; Visit Provider Psychiatry & Neurology Psychiatry
DX: F31.81 Bipolar II disorder (principal); F42.9 Obsessive-compulsive disorder, unspecified; F43.10 Post-traumatic stress disorder, unspecified; F41.8 Other specified anxiety disorders
CPT/HCPCS: H0035; 90832; 90853

== ENCOUNTER → 2020-11-22 | Outpatient (CLI) | payer BC, SELFPAY | END | disposition home or self-care (01) | PROVIDERS: PCP Family Medicine; Visit Provider Family Medicine | DX: O26.899 Other specified pregnancy related conditions, unspecified trimester (principal); R30.0 Dysuria; Z3A.00 Weeks of gestation of pregnancy not specified | CPT/HCPCS: 87077; 87086; 87088; 87186 ==

== ENCOUNTER → 2021-02-17 11:15 | Outpatient (CLI) | payer MEDICAID, SELFPAY ==
[2021-02-17 14:20] LABS: Anion Gap 4 (5-15); BUN 8 mg/dL (7-18); BUN/Creat Ratio 16.7 RATIO (10-20); Calcium,Total 8.5 mg/dL (8.5-10.1); Chloride 107 mmol/L (98-107); Creatinine, Serum 0.48 mg/dL (0.55-1.02); EST Glomerular Filtration Rate 172 mL/min (>60); Est Glom Filt Rate - Afr Amer 208 mL/min (>60); Glucose 68 mg/dL (74-106); Sodium Level 136 mmol/L (136-145)
== END ==
PROVIDERS: Referring Provider Otolaryngology; Visit Provider Otolaryngology
DX: E87.1 Hypo-osmolality and hyponatremia (principal)
CPT/HCPCS: 36415; 80048

== ENCOUNTER 2021-08-25 12:31 | Outpatient (CLI) | payer MEDICAID, SELFPAY ==
--- NOTE | 2021-08-25 12:50 | MRI_ITS ---
EXAM: MR HEAD WITHOUT AND WITH INTRAVENOUS CONTRAST, INTERNAL AUDITORY CANAL PROTOCOL CLINICAL INDICATION: RIGHT SENSORINEURAL HEARING LOSS; RIGHT TINNITUS Vertigo and tinnitis in right ear since July 2020. TECHNIQUE: Multiplanar and multisequence MR images of the internal auditory canal were obtained without and with intravenous contrast. This report was created using SET report [employer] technology. CONTRAST: IV 20mL Dotarem COMPARISON: None. FINDINGS: CRANIAL NERVES: Unremarkable. No mass. No abnormal enhancement. COCHLEA AND SEMICIRCULAR CANALS: Unremarkable. CEREBELLOPONTINE ANGLES: Unremarkable. No mass. BRAIN AND EXTRA-AXIAL SPACES: Unremarkable as visualized. No intra- or extra-axial hemorrhage. No intracranial mass or mass effect. There is preservation of the mak/white matter interface. Posterior fossa structures are unremarkable. Ventricles are appropriate for age. No hydrocephalus. Basal cisterns are patent. BONES/JOINTS: Unremarkable. No discrete lytic or blastic abnormalities. SINUSES: Unremarkable as visualized. Clear. MASTOID AIR CELLS: Unremarkable as visualized. Clear. ORBITS: Unremarkable as visualized. Both globes, extraocular muscles, optic nerves and retrobulbar fat appear unremarkable. MRI/Brain W/WO Contrast IMPRESSION: Unremarkable MRI of the internal auditory canal. Electronically Signed: Mirza Zhang MD at 14:08 EST , Service support ,
[2021-08-25 13:01] LABS: CREATININE FINGERSTICK 0.8 mg/dL (0.55-1.02); EGFR FINGERSTICK > 60.0000 mL/min (>60)
== END 2021-08-25 23:59 | disposition short-term general hospital (02) ==
LOC: MRI 12:34
PROVIDERS: Referring Provider Otolaryngology; Visit Provider Otolaryngology
DX: H90.41 Sensorineural hearing loss, unilateral, right ear, with unrestricted hearing on the contralateral side (principal); H93.11 Tinnitus, right ear
CPT/HCPCS: 70553

== ENCOUNTER 2022-02-13 15:04 | Emergency (ER) | payer MEDICAID, SELFPAY ==
[2022-02-13 15:05] VITALS: BP 99/67; PULSE 92; RESP 14; TEMP 37; O2SAT 97; BMI 39.9
--- NOTE | 2022-02-13 15:34 | EX.ED.VIS.HA ---
HPI History of Present Illness Chief Complaint: Headache Informant: patient Narrative Narrative: 1-year-old female presenting to the emergency room with headache x5 days. She describes it as located on the right side of her head. She has tried sumatriptan hand with no relief. She notes nausea but no vomiting. She notes body aches. She sees floaters in her field of vision. No fevers or rash. No cough or sore throat. PFSH [facility] Medical History Anemia Arthritis Bipolar 2 disorder Bone fracture Constipation Frequent headaches Gastrointestinal problem Generalized anxiety disorder GERD (gastroesophageal reflux disease) H/O emotional problems Hearing problem History of PCOS Hypoglycemia IBS (irritable bowel syndrome) OCD (obsessive compulsive disorder) PCOS (polycystic ovarian syndrome) PTSD (post-traumatic stress disorder) Seasonal allergies Sleep apnea UTI (urinary tract infection) Vision problems Vitamin deficiency Home Medications ergocalciferol (vitamin D2) 1,250 mcg (50,000 unit) capsule 50,000 unit PO QWEEK 07/06/20 [History Last Taken Unknown] ferrous sulfate 325 mg (65 mg iron) tablet 325 mg PO DAILY 07/06/20 [History Last Taken Unknown] aripiprazole 10 mg tablet 10 mg PO QHS 11/16/21 [History Last Taken Unknown] aripiprazole 2 mg tablet 2 mg PO QAM 11/16/21 [History Last Taken Unknown] ascorbic acid (vitamin C) 250 mg tablet 250 mg PO DAILY 11/16/21 [History Last Taken Unknown] docusate sodium 100 mg capsule 100 mg PO BID PRN constipation 11/16/21 [History Last Taken Unknown] hydroxyzine HCl 10 mg tablet 10 mg PO TID PRN 11/16/21 [History Last Taken Unknown] dimenhydrinate 50 mg tablet (Driminate) 50 mg PO TID PRN dizziness or vertigo #90 tabs 12/28/21 [Rx Last Taken Unknown] meclizine 12.5 mg tablet 12.5 mg PO TID PRN dizziness #90 tabs 12/28/21 [Rx Last Taken Unknown] ondansetron 4 mg disintegrating tablet 4 mg PO TID PRN nausea and vomiting #90 tabs 12/28/21 [Rx Last Taken Unknown] sumatriptan succinate 50 mg tablet 50 mg PO .COMPLEX #9 tabs 12/28/21 [Rx Last Taken Unknown] topiramate 100 mg tablet 100 mg PO QHS #30 tabs 12/28/21 [Rx Last Taken Unknown] topiramate 50 mg tablet 50 mg PO QAM #30 tabs 12/28/21 [Rx Last Taken Unknown] guaifenesin 1,200 mg tablet, extended release 12 hr 1,200 mg PO BID 01/26/22 [History Last Taken Unknown] norelgestromin 150 mcg-e.estradiol 35 mcg/24 hr weekly transderm patch (Xulane) 1 patch transdermal QWEEK 01/26/22 [History Last Taken Unknown] nystatin 100,000 unit/gram topical powder (Nyamyc) gm topical 01/26/22 [History Last Taken Unknown] triamterene 37.5 mg-hydrochlorothiazide 25 mg capsule 1 cap PO DAILY 01/26/22 [History Last Taken Unknown] Allergy/AdvReac Type Severity Reaction Status Date / Time adhesive tape Allergy Intermediate Rash Verified 02/13/22 15:09 Family History Mother Alcohol abuse Anemia Arthritis Father Alcohol abuse Grandmother Anemia Arthritis History of blood transfusion Hypertension Kidney disease Sister Asthma Seizures Grandfather Arthritis Depression Diabetes Surgical History H/O bariatric surgery History of ankle surgery Hx of cholecystectomy Hx of tonsillectomy Social History Smoking Status: Never smoker alcohol intake: current alcohol intake frequency: holidays/special occasions only substance use type: does not use what type of physical activity do you participate in: other ROS ROS ED Constitutional Constitutional ED: Denies chills or weight loss Eyes Eyes: Denies change in vision or diplopia ENT ENT ED: Denies ear pain, rhinorrhea or sore throat Cardiovascular Cardiovascular: Denies chest pain, orthopnea, palpitations or racing heartbeat Respiratory/Chest Respiratory/Chest: Denies cough, dyspnea or orthopnea Gastrointestinal Gastrointestinal: Reports nausea; Denies abdominal pain, diarrhea or vomiting Genitourinary Genitourinary ED: Denies dysuria, hematuria or urinary frequency Musculoskeletal Musculoskeletal: Reports myalgias; Denies arthralgias Integumentary Denies abscess or rash Neurologic Neurologic: Reports headache(s); Denies weakness Psychiatric Psychiatric: Denies anxiety, depression, suicidal ideation or suicidal thoughts Endocrine Endocrinology: Denies polydipsia, polyphagia or polyuria Allergic/Immunologic Allergic/Immunologic ED: Denies mouth swelling, tongue swelling or urticaria EXAM Physical Exam Const Vital Signs: 02/13/22 15:05 Temperature 98.6 F Temperature Source Temporal Pulse Rate 92 Respiratory Rate 14 Blood Pressure 99/67 Blood Pressure Mean 77 Pulse Ox 97 Oxygen Delivery Method Room Air MDM MDM MDM Narrative Medical decision making narrative: Patient received Toradol Compazine and Benadryl as well as IV fluids. Repeat assessment the patient is feeling better. We will allow the rest of the fluids to run in and if she continues to do better she may be discharged. Discharge Plan Triage Chief Complaint: Headache ED Provider: Olu Armendariz Dx/Rx/DC Orders Clinical Impression: Headache Instructions: ED Headache Unspecified Prescriptions: No Action ascorbic acid (vitamin C) 250 mg tablet 250 mg PO DAILY aripiprazole 2 mg tablet 2 mg PO QAM hydroxyzine HCl 10 mg tablet 10 mg PO TID PRN docusate sodium 100 mg capsule 100 mg PO BID PRN (Reason: constipation) dimenhydrinate [Driminate] 50 mg tablet 50 mg PO TID PRN (Reason: dizziness or vertigo) Qty: 90 2RF meclizine 12.5 mg tablet 12.5 mg PO TID PRN (Reason: dizziness) Qty: 90 2RF ondansetron 4 mg tablet,disintegrating 4 mg PO TID PRN (Reason: nausea and vomiting) Qty: 90 2RF sumatriptan succinate 50 mg tablet 50 mg PO .COMPLEX Qty: 9 2RF Rx Instructions: 50 mg PO every two hours as needed for headache up to two tablets per day topiramate 50 mg tablet 50 mg PO QAM Qty: 30 2RF topiramate 100 mg tablet 100 mg PO QHS Qty: 30 2RF guaifenesin 1,200 mg tablet extended release 12hr 1,200 mg PO BID triamterene-hydrochlorothiazid 37.5-25 mg capsule 1 cap PO DAILY nystatin [Nyamyc] 100,000 unit/gram powder topical Label Comments: apply 1 APPLICATION topically if needed for rash Xulane 150-35 mcg/24 hr patch weekly 1 patch transdermal QWEEK Rx Instructions: apply once weekly for 3 weeks of a 4-week cycle ferrous sulfate 325 MG tablet 325 mg PO DAILY ergocalciferol (vitamin D2) 50,000 UNIT capsule 50,000 unit PO QWEEK aripiprazole 10 mg tablet 10 mg PO QHS Primary Care Provider: Christoph Gann Referrals: Christoph Gann DO [Primary Care Provider] - As Needed
[2022-02-13] MEDS: 0.9% Normal Saline 1,000 ML 999 ML IV (15:48)
[2022-02-13] MEDS: Ketorolac 30 MG/ML Syringe IV (15:49)
[2022-02-13] MEDS: DiphenhydrAMINE 50 MG/ML Syringe IV (15:49)
[2022-02-13] MEDS: proCHLORPERazine 10 MG/2 ML Vial IV (15:49)
[2022-02-13 17:01] VITALS: BP 107/65; RESP 18
== END 2022-02-13 17:01 | disposition home or self-care (01) ==
LOC: ED 15:53
PROVIDERS: Emergency Provider Emergency Medicine; PCP Student in an Organized Health Care Education/Training Program; Visit Provider Emergency Medicine
DX: R51.9 Headache, unspecified (principal)
CPT/HCPCS: 87811; 99283; J7030; A4216

== ENCOUNTER 2022-03-17 20:31 | Emergency (ER) | payer MEDICAID, SELFPAY ==
[2022-03-17 20:32] VITALS: BP 115/64; PULSE 85; RESP 15; TEMP 36.9; O2SAT 100; BMI 40.9
[2022-03-17 21:09] LABS: Mucous, Urine 0 SEEN /hpf (<or=2+); White Blood Cells 0 SEEN /hpf (0-5)
[2022-03-17 21:12] LABS: Absolute Lymphocyte Count 3.78 X10^3/uL (0.83-4.51); Absolute Neutrophil Count 5.8 X10^3/uL (2.0-7.7); Basophil# 0.09 X10^3/uL; Basophil% 0.9 % (0-1); Eosinophil# 0.16 X10^3/uL; Eosinophils% 1.5 % (0-5); Hematocrit 40.3 % (37-47); Hemoglobin 11.9 g/dL (12.0-15.0); Lymphocyte # 3.78 X10^3/ul (0.83-4.51); Lymphocyte % 36.5 % (19-41); Mean Corp Hgb Conc 29.5 g/dL (32-36); Mean Corpuscular Hgb 21.5 pg (27.0-32.0); Mean Corpuscular Volume 72.9 fL (81-99); Mean Platelet Vol. 10.6 fl (6.2-12.0); Monocyte# 0.45 X10^3/uL; Monocyte% 4.3 % (0-10); NRBC Flagged by Analyzer 0 % (0-5); Neutrophil # 5.84 X10^3/uL (2.7-7.7); Neutrophil % 56.5 % (47-70); POSITIVE MORPHOLOGY YES; Platelet Count 409 K/mm3 (150-450); RBC Distribution Width CV 23.4 % (11.6-14.6); RBC Distribution Width SD 59.7 fl (35.1-43.9); Red Blood Count 5.53 M/mm3 (4.2-5.4); White Blood Count 10.4 K/mm3 (4.4-11.0)
[2022-03-17 21:20] LABS: Differential Indicated SCAN CRITERIA MET
[2022-03-17 21:25] LABS: Color, Urine Yellow (Yellow); Glucose, Dipstick Normal (Normal); Internal QC Validated? YES +Cl - CLEAR BKGD; Ketone-Dipstick Negative (Negative); Leukocyte Esterase-Dipstick Negative /ul (Negative); Nitrite-Dipstick Negative (Negative); Occult Blood-Urine 25 /ul (Negative); Pregnancy, Serum, hCG Quali. NEGATIVE Negative; Protein-Dipstick Negative (Negative); Urine Bilirubin Dipstick Negative (Negative); Urine Clarity Clear (Clear); Urine Urobilinogen Normal (Normal)
[2022-03-17 21:27] LABS: Anion Gap 7 (5-15); BUN 12 mg/dL (7-18); BUN/Creat Ratio 14.5 RATIO (10-20); Calcium,Total 8.4 mg/dL (8.5-10.1); Chloride 111 mmol/L (98-107); Creatinine, Serum 0.83 mg/dL (0.55-1.02); EST Glomerular Filtration Rate 91 mL/min (>60); Est Glom Filt Rate - Afr Amer 110 mL/min (>60); Estimated Creatinine Clearance 83.37 ml/min; Glucose 200 mg/dL (74-106); Potassium 3.7 mmol/L (3.5-5.1); Sodium Level 140 mmol/L (136-145)
--- NOTE | 2022-03-17 21:37 | CT_ITS ---
STUDY: CT ABDOMEN AND PELVIS WITH CONTRAST REASON FOR EXAM: Female, 21 years old. Left-sided predominant abdominal pain, hematochezia RADIATION DOSAGE (If Supplied By Facility): CTDIvol = ( 16.32 ) mGy, DLP = ( 1106.00 ) mGycm TECHNIQUE: Transaxial images were obtained from the dome of the diaphragm to the symphysis pubis without oral contrast. IV 100mL Isovue-370 was administered. Sagittal and coronal images were reconstructed. Individualized dose optimization techniques were used for this CT. COMPARISON: None. FINDINGS: The visualized lung bases are unremarkable. The visualized portions of the heart are within normal limits. Normal liver. There are surgical clips in the gallbladder fossa consistent with a prior cholecystectomy. Normal spleen. Normal pancreas. Normal bilateral adrenal glands. Normal right kidney. Normal left kidney. Prior gastric bypass surgery. Normal small intestine. Normal colon. The appendix is visualized and appears normal. Normal abdominal aorta. Normal inferior vena cava. Normal retroperitoneum. Normal urinary bladder. Normal visualized uterus. Normal abdominal wall. Normal thoracolumbar vertebral alignment. CT/Abdomen/Pelvis W IV Cont ONLY IMPRESSION: No acute abnormal finding in the abdomen or pelvis. Electronically Signed: Luis Rosales MD at 22:25 EDT ,
[2022-03-17 21:44] LABS: Bacteria RARE /hpf (None Seen); Red Blood Cells-Urine 5-10 SEEN /hpf (0-5)
[2022-03-17 21:45] LABS: Squamous Epithelial Cells - UA 0-5 SEEN /hpf (5-10)
--- NOTE | 2022-03-17 21:47 | ED.VIS.GI ---
HPI HPI - GI History of Present Illness Chief Complaint: Abd Pain Narrative Narrative: 20-year-old female presenting with abdominal pain. She states she had bariatric surgery done by a previous surgeon at [facility]. Her surgeon no longer works with [facility]. She states she has seen Dr. Colby in the past. She states she saw him and was referred back to [facility] in September. She had her gallbladder removed by [facility] as she had abdominal pain across her upper abdomen. Today she is having left upper quadrant pain. She states has had this since May 2021. She states that she has a bulking medication which makes her constipated in the morning in the afternoon she has diarrhea. She has mild nausea and has Zofran at home which helps intermittently. She describes the pain in her abdomen is sharp. No fever, chills. PFSH [facility] Medical History Anemia Arthritis Bipolar 2 disorder Bone fracture Constipation Frequent headaches Gastrointestinal problem Generalized anxiety disorder GERD (gastroesophageal reflux disease) H/O emotional problems Hearing problem History of PCOS Hypoglycemia IBS (irritable bowel syndrome) OCD (obsessive compulsive disorder) PCOS (polycystic ovarian syndrome) PTSD (post-traumatic stress disorder) Seasonal allergies Sleep apnea UTI (urinary tract infection) Vision problems Vitamin deficiency Home Medications ergocalciferol (vitamin D2) 1,250 mcg (50,000 unit) capsule 50,000 unit PO QWEEK 07/06/20 [History Last Taken Unknown] ferrous sulfate 325 mg (65 mg iron) tablet 325 mg PO DAILY 07/06/20 [History Last Taken Unknown] aripiprazole 10 mg tablet 10 mg PO QHS 11/16/21 [History Last Taken Unknown] ascorbic acid (vitamin C) 250 mg tablet 250 mg PO DAILY 11/16/21 [History Last Taken Unknown] docusate sodium 100 mg capsule 100 mg PO BID PRN constipation 11/16/21 [History Last Taken Unknown] hydroxyzine HCl 10 mg tablet 10 mg PO TID PRN Itching 11/16/21 [History Last Taken Unknown] nystatin 100,000 unit/gram topical powder (Nyamyc) 100,000 gm topical PRN PRN Itching 01/26/22 [History Last Taken Unknown] dimenhydrinate 50 mg tablet (Driminate) 50 mg PO TID PRN dizziness or vertigo #90 tabs 03/03/22 [Rx Last Taken Unknown] fludrocortisone 0.1 mg tablet 0.1 mg PO QAM #30 tabs 03/03/22 [Rx Last Taken Unknown] meclizine 12.5 mg tablet 12.5 mg PO TID PRN dizziness #90 tabs 03/03/22 [Rx Last Taken Unknown] ondansetron 4 mg disintegrating tablet 4 mg PO TID PRN nausea and vomiting #90 tabs 03/03/22 [Rx Last Taken Unknown] sumatriptan succinate 50 mg tablet 50 mg PO .COMPLEX #9 tabs 03/03/22 [Rx Last Taken Unknown] topiramate 100 mg tablet 100 mg PO QHS #30 tabs 03/03/22 [Rx Last Taken Unknown] topiramate 50 mg tablet 50 mg PO QAM #30 tabs 03/03/22 [Rx Last Taken Unknown] Allergy/AdvReac Type Severity Reaction Status Date / Time adhesive tape Allergy Intermediate Rash Verified 03/17/22 20:35 NSAIDS (Non-Steroidal Allergy Bleeding Verified 03/17/22 20:36 Anti-Inflamma Family History Mother Alcohol abuse Anemia Arthritis Father Alcohol abuse Grandmother Anemia Arthritis History of blood transfusion Hypertension Kidney disease Sister Asthma Seizures Grandfather Arthritis Depression Diabetes Surgical History H/O bariatric surgery History of ankle surgery Hx of cholecystectomy Hx of tonsillectomy Social History Smoking Status: Never smoker second hand exposure: No alcohol intake: current alcohol intake frequency: holidays/special occasions only substance use type: does not use what type of physical activity do you participate in: other isac/shinto: Worship seatbelt use: always ROS ROS ED Constitutional Constitutional ED: Denies chills or fever(s) ENT ENT ED: Denies rhinorrhea or sore throat Cardiovascular Cardiovascular: Denies chest pain or palpitations Respiratory/Chest Respiratory/Chest: Denies cough or dyspnea Gastrointestinal Gastrointestinal: Reports abdominal pain, constipation, diarrhea and nausea; Denies vomiting Genitourinary Genitourinary ED: Denies dysuria or hematuria Musculoskeletal Musculoskeletal: Denies arthralgias or back pain Integumentary Denies abscess Neurologic Neurologic: Denies headache(s) or paresthesias Psychiatric Psychiatric: Denies anxiety or depression EXAM Physical Exam Const Vital Signs: 03/17/22 20:32 Temperature 98.4 F Temperature Source Temporal Pulse Rate 85 Respiratory Rate 15 Blood Pressure 115/64 Blood Pressure Mean 81 Pulse Ox 100 Oxygen Delivery Method Room Air Positive well nourished General Appearance ED: NAD; Negative for pallor HEENT Reports moist mucous membranes normocephalic and atraumatic Eyes PERRL and EOMs intact bilaterally General Eye ED: Negative for pale conjunctiva or scleral icterus Resp normal respiratory effort and clear to auscultation bilaterally Auscultation: Negative for rales, rhonchi or wheezes Cardio regular rate and regular rhythm GI GI Narrative: Tenderness to palpation diffusely. No peritoneal signs. Back/Spine no CVA tenderness Neuro CN's II-XII intact bilaterally and moves all extremities Sensorium / Orientation: alert Psych mental status grossly normal Skin General Skin Exam: Negative for jaundice or pallor MDM MDM MDM Narrative Medical decision making narrative: Patient presenting with left upper quadrant pain and on exam she has pain everywhere I palpate. Her abdomen is not rigid. She declines analgesia and antiemetics. Her CBC shows no leukocytosis and her white blood cell count is 10.4. Hemoglobin is stable at 11.9 at last check this was 10.2. Renal function electrolytes are normal. Urinalysis negative for infection. Serum hCg negative. CT of the M pelvis with IV contrast is negative for acute abdominal pathology. Patient still declines analgesia or antiemetics. I did mental health counselor her she needs to follow-up with her surgeon at [facility]. Return precautions discussed. Impression: 1. Abdominal pain 2. Constipation 3. Diarrhea Lab Data Attestation: I reviewed the patient's lab results. Labs: Laboratory Results - last 24 hr 03/17/22 03/17/22 03/17/22 21:03 21:03 21:03 WBC 10.4 RBC 5.53 H Hgb 11.9 L Hct 40.3 MCV 72.9 L MCH 21.5 L MCHC 29.5 L RDW Std Deviation 59.7 H RDW Coeff of Yu 23.4 H Plt Count 409 MPV 10.6 Immature Gran % (Auto) 0.300 Neut % (Auto) 56.5 Lymph % (Auto) 36.5 [place] % (Auto) 4.3 Eos % (Auto) 1.5 Baso % (Auto) 0.9 Absolute Neuts (auto) 5.8 Absolute Lymphs (auto) 3.78 Nucleated RBC % 0 Differential Comment SCANNED Anisocytosis 1+ Sodium 140 Potassium 3.7 Chloride 111 H Carbon Dioxide 22.0 Anion Gap 7 BUN 12 Creatinine 0.83 Estim Creat Clear Calc 83.37 Est GFR (MDRD) Af Amer 110 Est GFR (MDRD) Non-Af 91 BUN/Creatinine Ratio 14.5 Glucose 200 H Calcium 8.4 L Serum , Qual Urine Color Yellow Urine Clarity Clear Urine pH 6.0 Ur Specific [place] 1.020 Urine Protein Negative Urine Glucose (UA) Normal Urine Ketones Negative Urine Occult Blood 25 H Urine Nitrite Negative Urine Bilirubin Negative Urine Urobilinogen Normal Ur Leukocyte Esterase Negative Urine RBC 5-10 SEEN Urine WBC 0 SEEN Ur Squamous Epith Cells 0-5 SEEN Urine Bacteria RARE Urine Mucus 0 SEEN 03/17/22 21:03 WBC RBC Hgb Hct MCV MCH MCHC RDW Std Deviation RDW Coeff of Yu Plt Count MPV Immature Gran % (Auto) Neut % (Auto) Lymph % (Auto) [place] % (Auto) Eos % (Auto) Baso % (Auto) Absolute Neuts (auto) Absolute Lymphs (auto) Nucleated RBC % Differential Comment Anisocytosis Sodium Potassium Chloride Carbon Dioxide Anion Gap BUN Creatinine Estim Creat Clear Calc Est GFR (MDRD) Af Amer Est GFR (MDRD) Non-Af BUN/Creatinine Ratio Glucose Calcium Serum , Qual NEGATIVE Urine Color Urine Clarity Urine pH Ur Specific [place] Urine Protein Urine Glucose (UA) Urine Ketones Urine Occult Blood Urine Nitrite Urine Bilirubin Urine Urobilinogen Ur Leukocyte Esterase Urine RBC Urine WBC Ur Squamous Epith Cells Urine Bacteria Urine Mucus Radiography Diagnostic Testing: Clinical Impression(s) from Imaging Studies Abdomen/Pelvis CT 03/17/22 21:37 IMPRESSION: No acute abnormal finding in the abdomen or pelvis. Electronically Signed: Luis Rosales MD at 22:25 EDT , Discharge Plan Triage Chief Complaint: Abd Pain ED Provider: Farhan Luna Dx/Rx/DC Orders Instructions: ED Abdominal Pain Unkn Cause Fem Prescriptions: No Action ascorbic acid (vitamin C) 250 mg tablet 250 mg PO DAILY hydroxyzine HCl 10 mg tablet 10 mg PO TID PRN (Reason: Itching) docusate sodium 100 mg capsule 100 mg PO BID PRN (Reason: constipation) nystatin [Nyamyc] 100,000 unit/gram powder 100,000 gm topical PRN PRN (Reason: Itching) Label Comments: apply 1 APPLICATION topically if needed for rash topiramate 50 mg tablet 50 mg PO QAM Qty: 30 3RF topiramate 100 mg tablet 100 mg PO QHS Qty: 30 3RF sumatriptan succinate 50 mg tablet 50 mg PO .COMPLEX Qty: 9 3RF Rx Instructions: 50 mg PO every two hours as needed for headache up to two tablets per day ondansetron 4 mg tablet,disintegrating 4 mg PO TID PRN (Reason: nausea and vomiting) Qty: 90 3RF dimenhydrinate [Driminate] 50 mg tablet 50 mg PO TID PRN (Reason: dizziness or vertigo) Qty: 90 3RF meclizine 12.5 mg tablet 12.5 mg PO TID PRN (Reason: dizziness) Qty: 90 3RF fludrocortisone 0.1 mg tablet 0.1 mg PO QAM Qty: 30 4RF ferrous sulfate 325 MG tablet 325 mg PO DAILY ergocalciferol (vitamin D2) 50,000 UNIT capsule 50,000 unit PO QWEEK aripiprazole 10 mg tablet 10 mg PO QHS Primary Care Provider: Christoph Gann Referrals: Christoph Gann DO [Primary Care Provider] - Disposition Disposition: Home, Self Care
[2022-03-17 21:50] LABS: Differential Comment SCANNED
[2022-03-17 21:51] LABS: Anisocytosis 1+
== END 2022-03-17 23:19 | disposition home or self-care (01) ==
PROVIDERS: Emergency Provider Student in an Organized Health Care Education/Training Program; PCP Student in an Organized Health Care Education/Training Program; Visit Provider Student in an Organized Health Care Education/Training Program
DX: R10.12 Left upper quadrant pain (principal); F31.81 Bipolar II disorder; R19.7 Diarrhea, unspecified; K59.00 Constipation, unspecified; F43.10 Post-traumatic stress disorder, unspecified; M19.90 Unspecified osteoarthritis, unspecified site; Z90.49 Acquired absence of other specified parts of digestive tract; Z98.84 Bariatric surgery status; Z79.899 Other long term (current) drug therapy
CPT/HCPCS: 74177; 80048; 81001; 84703; 85025; 99283; Q9967; A4216

== ENCOUNTER 2022-04-23 20:26 | Emergency (ER) | payer MEDICAID, SELFPAY ==
[2022-04-23 20:27] VITALS: BP 104/72; PULSE 98; RESP 14; TEMP 36.8; O2SAT 97; BMI 41.8
[2022-04-23] MEDS: Metoclopramide 10 MG/2 ML Vial IV (22:23)
[2022-04-23] MEDS: DiphenhydrAMINE 50 MG/ML Syringe 25 MG IV (22:23)
[2022-04-23] MEDS: 0.9% Normal Saline 1,000 ML 999 ML IV (22:23)
[2022-04-23 23:13] VITALS: BP 115/76; PULSE 74; RESP 16; O2SAT 99
[2022-04-23 23:28] VITALS: PULSE 67; RESP 19; O2SAT 99
--- NOTE | 2022-04-24 00:29 | EX.ED.VIS.HA ---
HPI History of Present Illness Chief Complaint: Headache Informant: patient Narrative Narrative: Migraine headache for 3 days photophobia phonophobia nausea without vomiting. Has Imitrex no relief. On Topamax. No head injuries. No fevers. Prior similar symptoms: Yes PFSH PFSH Medical History Anemia Arthritis Bipolar 2 disorder Bone fracture Constipation Frequent headaches Gastrointestinal problem Generalized anxiety disorder GERD (gastroesophageal reflux disease) H/O emotional problems Hearing problem History of PCOS Hypoglycemia IBS (irritable bowel syndrome) OCD (obsessive compulsive disorder) PCOS (polycystic ovarian syndrome) PTSD (post-traumatic stress disorder) Seasonal allergies Sleep apnea UTI (urinary tract infection) Vision problems Vitamin deficiency Home Medications ergocalciferol (vitamin D2) 1,250 mcg (50,000 unit) capsule 50,000 unit PO QWEEK 07/06/20 [History Last Taken Unknown] ferrous sulfate 325 mg (65 mg iron) tablet 325 mg PO DAILY 07/06/20 [History Last Taken Unknown] aripiprazole 10 mg tablet 10 mg PO QHS 11/16/21 [History Last Taken Unknown] ascorbic acid (vitamin C) 250 mg tablet 250 mg PO DAILY 11/16/21 [History Last Taken Unknown] docusate sodium 100 mg capsule 100 mg PO BID PRN constipation 11/16/21 [History Last Taken Unknown] hydroxyzine HCl 10 mg tablet 10 mg PO TID PRN Itching 11/16/21 [History Last Taken Unknown] nystatin 100,000 unit/gram topical powder (Nyamyc) 100,000 gm topical PRN PRN Itching 01/26/22 [History Last Taken Unknown] dimenhydrinate 50 mg tablet (Driminate) 50 mg PO TID PRN dizziness or vertigo #90 tabs 03/03/22 [Rx Last Taken Unknown] fludrocortisone 0.1 mg tablet 0.1 mg PO QAM #30 tabs 03/03/22 [Rx Last Taken Unknown] meclizine 12.5 mg tablet 12.5 mg PO TID PRN dizziness #90 tabs 03/03/22 [Rx Last Taken Unknown] ondansetron 4 mg disintegrating tablet 4 mg PO TID PRN nausea and vomiting #90 tabs 03/03/22 [Rx Last Taken Unknown] sumatriptan succinate 50 mg tablet 50 mg PO .COMPLEX #9 tabs 03/03/22 [Rx Last Taken Unknown] topiramate 100 mg tablet 100 mg PO QHS #30 tabs 03/03/22 [Rx Last Taken Unknown] topiramate 50 mg tablet 50 mg PO QAM #30 tabs 03/03/22 [Rx Last Taken Unknown] Allergy/AdvReac Type Severity Reaction Status Date / Time adhesive tape Allergy Intermediate Rash Verified 04/23/22 20:27 NSAIDS (Non-Steroidal Allergy Bleeding Verified 04/23/22 20:27 Anti-Inflamma Family History Mother Alcohol abuse Anemia Arthritis Father Alcohol abuse Grandmother Anemia Arthritis History of blood transfusion Hypertension Kidney disease Sister Asthma Seizures Grandfather Arthritis Depression Diabetes Surgical History H/O bariatric surgery History of ankle surgery Hx of cholecystectomy Hx of tonsillectomy Social History Smoking Status: Never smoker second hand exposure: No alcohol intake: current alcohol intake frequency: holidays/special occasions only substance use type: does not use what type of physical activity do you participate in: other isac/temple: Confucianist seatbelt use: always ROS ROS ED Constitutional Constitutional ED: Denies chills, fever(s) or sweats Eyes Eyes: Denies change in vision ENT ENT ED: Denies dysphagia or sore throat Cardiovascular Cardiovascular: Denies chest pain, leg edema, palpitations or racing heartbeat Respiratory/Chest Respiratory/Chest: Denies cough, dyspnea or dyspnea on exertion Gastrointestinal Gastrointestinal: Reports nausea; Denies abdominal pain, diarrhea or vomiting Genitourinary Genitourinary ED: Denies dysuria, hematuria or urinary frequency Musculoskeletal Musculoskeletal: Denies back pain, extremity pain or neck pain Integumentary Denies rash or wounds Neurologic Neurologic: Reports headache(s); Denies paresthesias or weakness EXAM Physical Exam Const Vital Signs: 04/23/22 20:27 04/23/22 23:13 04/23/22 23:28 Temperature 98.2 F Temperature Source Temporal Pulse Rate 98 74 67 Respiratory Rate 14 16 19 H Blood Pressure 104/72 115/76 Blood Pressure Mean 82 89 Pulse Ox 97 99 99 Oxygen Delivery Method Room Air Room Air Positive well nourished and well developed General Appearance ED: well developed and NAD HEENT Reports moist mucous membranes normocephalic and atraumatic Eyes PERRL, EOMs intact bilaterally and conjunctivae normal General Eye ED: Yes normal appearance of both eyes Neck no lymphadenopathy, supple and no meningeal signs General: Negative for tenderness Chest Wall Chest: Negative for tenderness Resp normal respiratory effort and normal air movement Effort and Inspection: symmetric chest movement; Negative for respiratory distress Cardio regular rate, regular rhythm and no murmurs Peripheral Pulses: pulses 2+ throughout GI normal to inspection, nondistended, normoactive bowel sounds and non-tender Palpation: Negative for guarding or rebound tenderness present Back/Spine no CVA tenderness and no thoracic nor lumbar tenderness Extremity normal to inspection General Extremety ED: Negative for edema or tenderness General Extremity: Negative for edema Neuro oriented x3, CN's II-XII intact bilaterally and no sensory deficits noted Sensorium / Orientation: awake and alert Skin no rashes or lesions noted and no wounds MDM MDM MDM Narrative Medical decision making narrative: Patient vital stable no focal neurologic deficit. No meningismus. Treated with fluids Reglan and Benadryl with improvement of symptoms. Discharged with outpatient follow-up. Discharge Plan Triage Chief Complaint: Headache ED Provider: Lucian Frederick Dx/Rx/DC Orders Clinical Impression: Migraine headache without aura, Nausea Instructions: Migraines and Cluster Headaches, Preventing Migraine Headaches ... Prescriptions: No Action ascorbic acid (vitamin C) 250 mg tablet 250 mg PO DAILY hydroxyzine HCl 10 mg tablet 10 mg PO TID PRN (Reason: Itching) docusate sodium 100 mg capsule 100 mg PO BID PRN (Reason: constipation) nystatin [Nyamyc] 100,000 unit/gram powder 100,000 gm topical PRN PRN (Reason: Itching) Label Comments: apply 1 APPLICATION topically if needed for rash topiramate 50 mg tablet 50 mg PO QAM Qty: 30 3RF topiramate 100 mg tablet 100 mg PO QHS Qty: 30 3RF sumatriptan succinate 50 mg tablet 50 mg PO .COMPLEX Qty: 9 3RF Rx Instructions: 50 mg PO every two hours as needed for headache up to two tablets per day ondansetron 4 mg tablet,disintegrating 4 mg PO TID PRN (Reason: nausea and vomiting) Qty: 90 3RF dimenhydrinate [Driminate] 50 mg tablet 50 mg PO TID PRN (Reason: dizziness or vertigo) Qty: 90 3RF meclizine 12.5 mg tablet 12.5 mg PO TID PRN (Reason: dizziness) Qty: 90 3RF fludrocortisone 0.1 mg tablet 0.1 mg PO QAM Qty: 30 4RF ferrous sulfate 325 MG tablet 325 mg PO DAILY ergocalciferol (vitamin D2) 50,000 UNIT capsule 50,000 unit PO QWEEK aripiprazole 10 mg tablet 10 mg PO QHS Primary Care Provider: Christoph Gann Referrals: Christoph Gann DO [Primary Care Provider] - 3-5 Days Disposition Disposition: Home, Self Care Discharge Date/Time: 04/23/22 23:42
== END 2022-04-23 23:42 | disposition home or self-care (01) ==
PROVIDERS: Emergency Provider Emergency Medicine; PCP Student in an Organized Health Care Education/Training Program; Visit Provider Emergency Medicine
DX: G43.009 Migraine without aura, not intractable, without status migrainosus (principal); M19.90 Unspecified osteoarthritis, unspecified site; Z79.899 Other long term (current) drug therapy
CPT/HCPCS: 96361; 96374; 96375; 99282; J7030; A4216

== ENCOUNTER 2022-05-16 18:19 | Emergency (ER) | payer MEDICAID, SELFPAY ==
[2022-05-16 18:20] VITALS: BP 94/54; PULSE 78; RESP 16; TEMP 36.5; O2SAT 98; BMI 42.0
--- NOTE | 2022-05-16 18:50 | EDS_ITS ---
HPI HPI - Female History of Present Illness Chief Complaint: Complaint Informant: patient Narrative Narrative: 21-year-old female presenting to the emergency room with a history of dysuria and hematuria. Patient states that she has a history of frequent UTIs over the past 9 months. She has had Sruthi-en-Y gastric bypass surgery as well as a cystoscopy through Dr. Richey. She states that she was referred on to [facility]. Patient notes that over the past week she has had blood in her urine and frequent urination. She notes dysuria. [facility] Medical History Anemia Arthritis Bipolar 2 disorder Bone fracture Constipation Diarrhea Frequent headaches Gastrointestinal problem Generalized anxiety disorder GERD (gastroesophageal reflux disease) H/O emotional problems Hearing problem History of PCOS Hypoglycemia IBS (irritable bowel syndrome) OCD (obsessive compulsive disorder) PCOS (polycystic ovarian syndrome) PTSD (post-traumatic stress disorder) Seasonal allergies Sleep apnea UTI (urinary tract infection) Vision problems Vitamin deficiency Home Medications ergocalciferol (vitamin D2) 1,250 mcg (50,000 unit) capsule 50,000 unit PO QWEEK 07/06/20 [History Last Taken Unknown] ferrous sulfate 325 mg (65 mg iron) tablet 325 mg PO DAILY 07/06/20 [History Last Taken Unknown] aripiprazole 10 mg tablet 10 mg PO QHS 11/16/21 [History Last Taken Unknown] ascorbic acid (vitamin C) 250 mg tablet 250 mg PO DAILY 11/16/21 [History Last Taken Unknown] docusate sodium 100 mg capsule 100 mg PO BID PRN constipation 11/16/21 [History Last Taken Unknown] hydroxyzine HCl 10 mg tablet 10 mg PO TID PRN Itching 11/16/21 [History Last Taken Unknown] nystatin 100,000 unit/gram topical powder (Nyamyc) 100,000 gm topical PRN PRN Itching 01/26/22 [History Last Taken Unknown] dimenhydrinate 50 mg tablet (Driminate) 50 mg PO TID PRN dizziness or vertigo #90 tabs 03/03/22 [Rx Last Taken Unknown] fludrocortisone 0.1 mg tablet 0.1 mg PO QAM #30 tabs 03/03/22 [Rx Last Taken Unknown] meclizine 12.5 mg tablet 12.5 mg PO TID PRN dizziness #90 tabs 03/03/22 [Rx Last Taken Unknown] ondansetron 4 mg disintegrating tablet 4 mg PO TID PRN nausea and vomiting #90 tabs 03/03/22 [Rx Last Taken Unknown] sumatriptan succinate 50 mg tablet 50 mg PO .COMPLEX #9 tabs 03/03/22 [Rx Last Taken Unknown] topiramate 100 mg tablet 100 mg PO QHS #30 tabs 03/03/22 [Rx Last Taken Unknown] topiramate 50 mg tablet 50 mg PO QAM #30 tabs 03/03/22 [Rx Last Taken Unknown] triamterene 37.5 mg-hydrochlorothiazide 25 mg capsule 1 cap PO DAILY 04/27/22 [History Last Taken Unknown] Allergy/AdvReac Type Severity Reaction Status Date / Time adhesive tape Allergy Intermediate Rash Verified 05/16/22 18:19 NSAIDS (Non-Steroidal Allergy Bleeding Verified 05/16/22 18:19 Anti-Inflamma Family History Mother Alcohol abuse Anemia Arthritis Father Alcohol abuse Grandmother Anemia Arthritis History of blood transfusion Hypertension Kidney disease Sister Asthma Seizures Grandfather Arthritis Depression Diabetes Surgical History H/O bariatric surgery History of ankle surgery Hx of cholecystectomy Hx of tonsillectomy Social History Smoking Status: Never smoker second hand exposure: No alcohol intake: current alcohol intake frequency: holidays/special occasions only substance use type: does not use what type of physical activity do you participate in: other isac/hinduism: Cheondoism seatbelt use: always ROS ROS ED Constitutional Constitutional ED: Denies chills or weight loss Eyes Eyes: Denies change in vision or diplopia ENT ENT ED: Denies ear pain, rhinorrhea or sore throat Cardiovascular Cardiovascular: Denies chest pain, orthopnea, palpitations or racing heartbeat Respiratory/Chest Respiratory/Chest: Denies cough, dyspnea or orthopnea Gastrointestinal Gastrointestinal: Reports abdominal pain; Denies diarrhea, nausea or vomiting Genitourinary Genitourinary ED: Reports dysuria, hematuria and urinary frequency Musculoskeletal Musculoskeletal: Reports other Details: Bilateral back pain ; Denies arthralgias or myalgias Integumentary Denies abscess or rash Neurologic Neurologic: Denies headache(s) or weakness Psychiatric Psychiatric: Denies anxiety, depression, suicidal ideation or suicidal thoughts Endocrine Endocrinology: Denies polydipsia, polyphagia or polyuria Allergic/Immunologic Allergic/Immunologic ED: Denies mouth swelling, tongue swelling or urticaria EXAM Physical Exam Const Vital Signs: 05/16/22 18:20 Temperature 97.7 F L Temperature Source Temporal Pulse Rate 78 Respiratory Rate 16 Blood Pressure 94/54 L Blood Pressure Mean 67 Pulse Ox 98 Oxygen Delivery Method Room Air Positive well nourished, well developed and obese General Appearance ED: well developed Nutritional Appearance: obese HEENT Reports normocephalic, head/scalp atraumatic and moist mucous membranes Eyes PERRL and EOMs intact bilaterally Neck no lymphadenopathy, supple and no JVD Resp normal respiratory effort and clear to auscultation bilaterally Cardio regular rate, regular rhythm and no murmurs GI normal to inspection, nondistended, normoactive bowel sounds and non-tender Palpation: soft Back/Spine no CVA tenderness and normal ROM Extremity normal to inspection General Extremety ED: Negative for edema General Extremity: Negative for edema Neuro oriented x3 and CN's II-XII intact bilaterally Sensorium / Orientation: alert Motor Exam: strength 5/5 throughout Psych mental status grossly normal Mood & Affect: Negative for depressed or tearful Skin no rashes or lesions noted and no wounds MDM MDM MDM Narrative Medical decision making narrative: Urinalysis shows contamination with 10-25 squamous cells 2+ bacteria but negative nitrates negative leukocyte Estrace. test is negative. Because of the hematuria a CT was obtained which demonstrated a thick-walled urinary bladder. Given that her urine is negative makes me wonder if she has interstitial cystitis. I think she would benefit from urologic follow-up. In the interim we will obtain urine culture and I can write for some Macrobid based on her symptomology. Lab Data Attestation: I reviewed the patient's lab results. Labs: Laboratory Results - last 24 hr 05/16/22 18:31 Urine Color Yellow Urine Clarity Clear Urine pH 5.0 Ur Specific [place] 1.025 Urine Protein Negative Urine Glucose (UA) Normal Urine Ketones Negative Urine Occult Blood 50 H Urine Nitrite Negative Urine Bilirubin Negative Urine Urobilinogen Normal Ur Leukocyte Esterase Negative Urine RBC 5-10 SEEN Urine WBC 0-5 SEEN Ur Squamous Epith Cells 10-25 SEEN Urine Bacteria 2+ Urine Mucus 0 SEEN Urine Test Negative Radiography Diagnostic Testing: Clinical Impression(s) from Imaging Studies Abdomen/Pelvis CT 05/16/22 19:35 IMPRESSION: 1. Nondistended thick-walled urinary bladder. Possibility of cystitis cannot be ruled out. 2. No evidence of renal or ureteral abnormality. 3. Status post gastric bypass surgery and cholecystectomy. 4. Otherwise grossly normal CT of the abdomen and pelvis Electronically Signed: Sathish Tijerina DO at 20:03 EDT Reading Location ID and State: [address] [place] [address] Tel [phone], Service support , Discharge Plan Triage Chief Complaint: Complaint ED Provider: Olu Armendariz Dx/Rx/DC Orders Prescriptions: No Action ascorbic acid (vitamin C) 250 mg tablet 250 mg PO DAILY hydroxyzine HCl 10 mg tablet 10 mg PO TID PRN (Reason: Itching) docusate sodium 100 mg capsule 100 mg PO BID PRN (Reason: constipation) nystatin [Nyamyc] 100,000 unit/gram powder 100,000 gm topical PRN PRN (Reason: Itching) Label Comments: apply 1 APPLICATION topically if needed for rash topiramate 50 mg tablet 50 mg PO QAM Qty: 30 3RF topiramate 100 mg tablet 100 mg PO QHS Qty: 30 3RF sumatriptan succinate 50 mg tablet 50 mg PO .COMPLEX Qty: 9 3RF Rx Instructions: 50 mg PO every two hours as needed for headache up to two tablets per day ondansetron 4 mg tablet,disintegrating 4 mg PO TID PRN (Reason: nausea and vomiting) Qty: 90 3RF dimenhydrinate [Driminate] 50 mg tablet 50 mg PO TID PRN (Reason: dizziness or vertigo) Qty: 90 3RF meclizine 12.5 mg tablet 12.5 mg PO TID PRN (Reason: dizziness) Qty: 90 3RF fludrocortisone 0.1 mg tablet 0.1 mg PO QAM Qty: 30 4RF triamterene-hydrochlorothiazid 37.5-25 mg capsule 1 cap PO DAILY ferrous sulfate 325 MG tablet 325 mg PO DAILY ergocalciferol (vitamin D2) 50,000 UNIT capsule 50,000 unit PO QWEEK aripiprazole 10 mg tablet 10 mg PO QHS Primary Care Provider: Christoph Gann Referrals: Christoph Gann DO [Primary Care Provider] -
[2022-05-16 19:06] LABS: Mucous, Urine 0 SEEN /hpf (<or=2+)
[2022-05-16 19:09] LABS: Color, Urine Yellow (Yellow); Glucose, Dipstick Normal (Normal); Ketone-Dipstick Negative (Negative); Leukocyte Esterase-Dipstick Negative /ul (Negative); Nitrite-Dipstick Negative (Negative); Occult Blood-Urine 50 /ul (Negative); Protein-Dipstick Negative (Negative); Specific Gravity, Urine 1.025 (1.002-1.030); Urine Bilirubin Dipstick Negative (Negative); Urine Clarity Clear (Clear); Urine Urobilinogen Normal (Normal)
[2022-05-16 19:14] LABS: Internal QC Validated? YES +Cl - CLEAR BKGD; Pregnancy, Urine Negative Negative
[2022-05-16 19:27] LABS: Bacteria 2+ /hpf (None Seen); Red Blood Cells-Urine 5-10 SEEN /hpf (0-5); White Blood Cells 0-5 SEEN /hpf (0-5)
[2022-05-16 19:28] LABS: Squamous Epithelial Cells - UA 10-25 SEEN /hpf (5-10)
--- NOTE | 2022-05-16 19:35 | CT_ITS ---
STUDY: CT ABDOMEN AND PELVIS WITHOUT CONTRAST REASON FOR EXAM: Female, 21 years old. Abdominal and back pain. History of bariatric surgery cholecystectomy. Hematuria. RADIATION DOSAGE (If Supplied By Facility): CTDIvol = ( 19.24 ) mGy, DLP = ( 980.67 ) mGycm TECHNIQUE: Transaxial images were obtained from the dome of the diaphragm to the symphysis pubis without oral contrast, and without intravenous contrast. Sagittal and coronal images were reconstructed. Individualized dose optimization techniques were used for this CT. COMPARISON: None. FINDINGS: The visualized lung bases are unremarkable. The visualized portions of the heart are within normal limits. Normal liver. There are surgical clips in the gallbladder fossa consistent with a prior cholecystectomy. Normal spleen. Normal pancreas. Normal bilateral adrenal glands. Normal right kidney. Normal left kidney. Normal visualized ureters There is evidence of gastric bypass surgery. Normal small intestine. Normal colon. The appendix is visualized and appears normal. Normal abdominal aorta. Normal inferior vena cava. Normal retroperitoneum. There bladder is poorly distended. Circumferential wall thickening without filling defect. Normal uterus and adnexa. No pelvic lymphadenopathy. No free air or free fluid is seen within the cavity Normal abdominal wall. Normal osseous structures. CT/Abdomen/Pelvis without Cont IMPRESSION: 1. Nondistended thick-walled urinary bladder. Possibility of cystitis cannot be ruled out. 2. No evidence of renal or ureteral abnormality. 3. Status post gastric bypass surgery and cholecystectomy. 4. Otherwise grossly normal CT of the abdomen and pelvis Electronically Signed: Sathish Tijerina DO at 20:03 EDT ,
[2022-05-16] MEDS: Nitrofurantoin Macrocrystals 100 MG Capsule PO (21:31)
[2022-05-16 21:35] VITALS: BP 113/65; PULSE 63; RESP 18; O2SAT 100
== END 2022-05-16 21:35 | disposition home or self-care (01) ==
PROVIDERS: Emergency Provider Emergency Medicine; PCP Student in an Organized Health Care Education/Training Program; Visit Provider Emergency Medicine
DX: R31.9 Hematuria, unspecified (principal); R35.0 Frequency of micturition; R30.0 Dysuria; Z87.440 Personal history of urinary (tract) infections; E66.9 Obesity, unspecified
CPT/HCPCS: 74176; 81001; 81025; 99283

== ENCOUNTER 2022-06-16 18:56 | Emergency (ER) | payer MEDICAID, SELFPAY ==
[2022-06-16 18:57] VITALS: BP 123/81; PULSE 87; RESP 15; TEMP 36.3; O2SAT 96; BMI 42.6
--- NOTE | 2022-06-16 19:27 | ED.VIS.FEGU ---
HPI HPI - Female History of Present Illness Chief Complaint: Flank Pain Detail of Chief Complaint: Recent UTI. Informant: patient Pain Pain: Negative for Pelvic Pain, Vulvar Pain or Vaginal Pain Bleeding Issue: Negative for Vaginal bleeding, Passing clots or Passing tissue Associated Symptoms Associated Symptoms: Positive for Dysuria Test: Positive Sexually: Positive for Active Control: No control P: 1 Ab: 0 Narrative Narrative: 21-year-old female extensive past medical history of anemia, bipolar, PTSD who is had a prior cholecystectomy and gastric bypass. Recently had a what she describes as faintly positive test. At her [employer] office to the nurse practitioner. They are going to recheck that. States she is recent UTI initially was placed on Macrobid then her urologist Dr. Richey changed to Keflex and then put her on tetracycline when the cultures came back. Complaining of right flank pain. Nausea and vomiting. No fevers or chills. Denies any vaginal bleeding or discharge. Ab0 if she is truly now. Denies any recent hospitalization. Prior similar symptoms: Yes Recent Illness/Hospitalization: No PFSH PFSH Medical History Anemia Arthritis Bipolar 2 disorder Bone fracture Constipation Diarrhea Frequent headaches Gastrointestinal problem Generalized anxiety disorder GERD (gastroesophageal reflux disease) H/O emotional problems Hearing problem History of PCOS Hypoglycemia IBS (irritable bowel syndrome) OCD (obsessive compulsive disorder) PCOS (polycystic ovarian syndrome) PTSD (post-traumatic stress disorder) Seasonal allergies Sleep apnea UTI (urinary tract infection) Vision problems Vitamin deficiency Home Medications ergocalciferol (vitamin D2) 1,250 mcg (50,000 unit) capsule 50,000 unit PO QWEEK 07/06/20 [History Last Taken Unknown] ferrous sulfate 325 mg (65 mg iron) tablet 325 mg PO DAILY 07/06/20 [History Last Taken Unknown] aripiprazole 10 mg tablet 10 mg PO QHS 11/16/21 [History Last Taken Unknown] ascorbic acid (vitamin C) 250 mg tablet 250 mg PO DAILY 11/16/21 [History Last Taken Unknown] docusate sodium 100 mg capsule 100 mg PO BID PRN constipation 11/16/21 [History Last Taken Unknown] hydroxyzine HCl 10 mg tablet 10 mg PO TID PRN Itching 11/16/21 [History Last Taken Unknown] nystatin 100,000 unit/gram topical powder (Nyamyc) 100,000 gm topical PRN PRN Itching 01/26/22 [History Last Taken Unknown] dimenhydrinate 50 mg tablet (Driminate) 50 mg PO TID PRN dizziness or vertigo #90 tabs 03/03/22 [Rx Last Taken Unknown] fludrocortisone 0.1 mg tablet 0.1 mg PO QAM #30 tabs 03/03/22 [Rx Last Taken Unknown] meclizine 12.5 mg tablet 12.5 mg PO TID PRN dizziness #90 tabs 03/03/22 [Rx Last Taken Unknown] ondansetron 4 mg disintegrating tablet 4 mg PO TID PRN nausea and vomiting #90 tabs 03/03/22 [Rx Last Taken Unknown] sumatriptan succinate 50 mg tablet 50 mg PO .COMPLEX #9 tabs 03/03/22 [Rx Last Taken Unknown] topiramate 100 mg tablet 100 mg PO QHS #30 tabs 03/03/22 [Rx Last Taken Unknown] topiramate 50 mg tablet 50 mg PO QAM #30 tabs 03/03/22 [Rx Last Taken Unknown] triamterene 37.5 mg-hydrochlorothiazide 25 mg capsule 1 cap PO DAILY 04/27/22 [History Last Taken Unknown] nitrofurantoin monohydrate/macrocrystals 100 mg capsule (Macrobid) 100 mg PO Q12H 5 days #10 caps 05/16/22 [Rx Last Taken Unknown] Allergy/AdvReac Type Severity Reaction Status Date / Time adhesive tape Allergy Intermediate Rash Verified 06/16/22 18:57 NSAIDS (Non-Steroidal Allergy Bleeding Verified 06/16/22 18:57 Anti-Inflamma Family History Mother Alcohol abuse Anemia Arthritis Father Alcohol abuse Grandmother Anemia Arthritis History of blood transfusion Hypertension Kidney disease Sister Asthma Seizures Grandfather Arthritis Depression Diabetes Surgical History H/O bariatric surgery History of ankle surgery Hx of cholecystectomy Hx of tonsillectomy Social History Smoking Status: Never smoker second hand exposure: No alcohol intake: current alcohol intake frequency: holidays/special occasions only substance use type: does not use what type of physical activity do you participate in: other isac/yazidism: Caodaism seatbelt use: always ROS ROS ED ROS Narrative Right flank pain. Nausea and vomiting. Chills. Review of Systems ROS Unobtainable: Denies due to encephalopathy Constitutional Constitutional ED: Reports chills; Denies fever(s) Eyes Eyes: Denies blurry vision ENT ENT ED: Denies ear pain Cardiovascular Cardiovascular: Denies chest pain Respiratory/Chest Respiratory/Chest: Denies cough or dyspnea Gastrointestinal Gastrointestinal: Reports nausea and vomiting; Denies abdominal pain, constipation, diarrhea or melena Genitourinary Genitourinary ED: Reports dysuria Musculoskeletal Musculoskeletal: Denies arthralgias Integumentary Denies abscess Neurologic Neurologic: Denies headache(s) Psychiatric Psychiatric: Denies anxiety or depression Endocrine Endocrinology: Denies heat intolerance Hematologic/Lymphatic Hematologic/Lymphatic: Denies easy bleeding Allergic/Immunologic Allergic/Immunologic ED: Denies mouth swelling or tongue swelling EXAM Physical Exam Narrative Exam Narrative: Well-appearing 21-year-old female. Vital signs stable afebrile. She does not look septic or toxic. She is no distress. H EENT exam unremarkable. Moist Riis members. Lungs clear to auscultation bilaterally. Heart regular rhythm no murmur rate about 85. Abdomen soft nontender normal bowel sounds no peritoneal signs. Back mild CVA tenderness on the right. Moving all 4 extremities. No edema. Neurologically she is awake alert with no focal motor deficits. Const Vital Signs: 06/16/22 18:57 Temperature 97.3 F L Temperature Source Temporal Pulse Rate 87 Respiratory Rate 15 Blood Pressure 123/81 H Blood Pressure Mean 95 Pulse Ox 96 Oxygen Delivery Method Room Air Positive well nourished, well developed and obese; Negative for cachectic, contractures or unkempt General Appearance ED: well developed and NAD; Negative for unkempt, cachectic, contractures, odor of alcohol detected or pallor Nutritional Appearance: obese; Negative for cachectic HEENT Reports moist mucous membranes; Denies dry mucous membranes Negative for trauma or tenderness Mouth ED: No dry mucous membranes Mouth: No dry mucous membranes Eyes PERRL and EOMs intact bilaterally General Eye ED: Negative for pale conjunctiva or scleral icterus Neck no lymphadenopathy, supple and no JVD General: Negative for other Lymph Lymphatic: Negative for other Chest Wall inspection of chest normal and palpation of chest normal Chest: Negative for other Resp normal respiratory effort and clear to auscultation bilaterally Effort and Inspection: Negative for pain with movement Auscultation: Negative for rales or rhonchi Cardio regular rate, regular rhythm, S1 normal heart sound, no murmurs and no JVD Rate: Negative for bradycardia or tachycardic Rhythm: Negative for abnormal rhythm GI normal to inspection, nondistended, normoactive bowel sounds, soft to palpation, non-tender, non-distended and no masses Auscultation: normoactive bowel sounds Palpation: Negative for tender, guarding or rigid Back/Spine no CVA tenderness General Back: Negative for CVA tenderness Cervical Spine: Negative for cervical spine tenderness Thoracic Spine / Upper Back: Negative for thoracic spinal tenderness Lumbar Spine / Lower Back: Negative for lumbar spinal tenderness Sacrum: Negative for other Extremity normal to inspection and full ROM General Extremety ED: Negative for edema or tenderness General Extremity: Negative for edema Neuro oriented x3 and CN's II-XII intact bilaterally Sensorium / Orientation: alert, oriented to person, oriented to place and oriented to time; Negative for confused, lethargic, stuporous or other Motor Exam: strength 5/5 throughout Psych mental status grossly normal Appearance: Negative for unkempt Attitude: No agitated Speech: No other Mood & Affect: Negative for depressed, anxious or tearful Skin no rashes or lesions noted and no wounds General Skin Exam: Negative for jaundice or pallor Rashes: No rashes noted Trauma: Negative for other MDM MDM MDM Narrative Medical decision making narrative: 21-year-old may or may not be . Complaint right flank pain with recent UTI. Screening labs, urinalysis of brain status will be obtained. Exam is benign. Repeat exam at 8:55 PM patient doing well. She and I went over all of her test results. She will be discharged home. Follow-up with her [employer] office in [place]. Tylenol for pain. Lab Data Attestation: I reviewed the patient's lab results. Lab results narrative: CBC normal. White count 9. H&H 12.7 and 38. Electrolytes unremarkable gap of 7. Normal BUN and creatinine at 10 and 0.6. test positive. Urinalysis negative. No nitrates. No bacteria. No white or red cells. Labs: Laboratory Results - last 24 hr 06/16/22 06/16/22 06/16/22 19:46 19:46 19:46 WBC 9.0 RBC 5.01 Hgb 12.7 Hct 38.5 MCV 76.8 L MCH 25.3 L MCHC 33.0 RDW Std Deviation 50.4 H RDW Coeff of Yu 17.9 H Plt Count 303 MPV 10.3 Immature Gran % (Auto) 0.200 Neut % (Auto) 54.0 Lymph % (Auto) 34.9 Toombs % (Auto) 8.5 Eos % (Auto) 1.4 Baso % (Auto) 1.0 Absolute Neuts (auto) 4.8 Absolute Lymphs (auto) 3.13 Nucleated RBC % 0 Sodium 141 Potassium 3.6 Chloride 111 H Carbon Dioxide 23.0 Anion Gap 7 BUN 10 Creatinine 0.67 Estim Creat Clear Calc 103.28 Est GFR (MDRD) Af Amer 139 Est GFR (MDRD) Non-Af 115 BUN/Creatinine Ratio 14.9 Glucose 92 Calcium 8.4 L Serum , Qual POSITIVE Urine Color Urine Clarity Urine pH Ur Specific [place] Urine Protein Urine Glucose (UA) Urine Ketones Urine Occult Blood Urine Nitrite Urine Bilirubin Urine Urobilinogen Ur Leukocyte Esterase Urine RBC Urine WBC Ur Squamous Epith Cells Urine Bacteria Urine Mucus 06/16/22 20:00 WBC RBC Hgb Hct MCV MCH MCHC RDW Std Deviation RDW Coeff of Yu Plt Count MPV Immature Gran % (Auto) Neut % (Auto) Lymph % (Auto) [place]ombs % (Auto) Eos % (Auto) Baso % (Auto) Absolute Neuts (auto) Absolute Lymphs (auto) Nucleated RBC % Sodium Potassium Chloride Carbon Dioxide Anion Gap BUN Creatinine Estim Creat Clear Calc Est GFR (MDRD) Af Amer Est GFR (MDRD) Non-Af BUN/Creatinine Ratio Glucose Calcium Serum , Qual Urine Color Yellow Urine Clarity Clear Urine pH 7.0 Ur Specific [place] 1.015 Urine Protein Negative Urine Glucose (UA) Normal Urine Ketones Negative Urine Occult Blood Negative Urine Nitrite Negative Urine Bilirubin Negative Urine Urobilinogen 1 H Ur Leukocyte Esterase 25 H Urine RBC 0 SEEN Urine WBC 0 SEEN Ur Squamous Epith Cells 10-25 SEEN Urine Bacteria 0 SEEN Urine Mucus 0 SEEN Discharge Plan Triage Chief Complaint: Flank Pain ED Provider: Cooper Fernandez Dx/Rx/DC Orders Clinical Impression: Acute flank pain, First trimester Instructions: First Trimester, ED Flank Pain, Uncertain Cause Prescriptions: No Action ascorbic acid (vitamin C) 250 mg tablet 250 mg PO DAILY hydroxyzine HCl 10 mg tablet 10 mg PO TID PRN (Reason: Itching) docusate sodium 100 mg capsule 100 mg PO BID PRN (Reason: constipation) nystatin [Nyamyc] 100,000 unit/gram powder 100,000 gm topical PRN PRN (Reason: Itching) Label Comments: apply 1 APPLICATION topically if needed for rash topiramate 50 mg tablet 50 mg PO QAM Qty: 30 3RF topiramate 100 mg tablet 100 mg PO QHS Qty: 30 3RF sumatriptan succinate 50 mg tablet 50 mg PO .COMPLEX Qty: 9 3RF Rx Instructions: 50 mg PO every two hours as needed for headache up to two tablets per day ondansetron 4 mg tablet,disintegrating 4 mg PO TID PRN (Reason: nausea and vomiting) Qty: 90 3RF dimenhydrinate [Driminate] 50 mg tablet 50 mg PO TID PRN (Reason: dizziness or vertigo) Qty: 90 3RF meclizine 12.5 mg tablet 12.5 mg PO TID PRN (Reason: dizziness) Qty: 90 3RF fludrocortisone 0.1 mg tablet 0.1 mg PO QAM Qty: 30 4RF triamterene-hydrochlorothiazid 37.5-25 mg capsule 1 cap PO DAILY ferrous sulfate 325 MG tablet 325 mg PO DAILY ergocalciferol (vitamin D2) 50,000 UNIT capsule 50,000 unit PO QWEEK aripiprazole 10 mg tablet 10 mg PO QHS nitrofurantoin monohyd/m-cryst [Macrobid] 100 mg capsule 100 mg PO Q12H 5 Days Qty: 10 0RF Rx Instructions: must administer with a meal/food Primary Care Provider: Christoph Gann Referrals: Christoph Gann DO [Primary Care Provider] - Activity Restrictions/Additional Instructions: Your labs at your and were normal. Your test was positive. Tylenol for pain. Call and follow-up with your [employer]. Disposition Disposition: Home, Self Care
[2022-06-16 19:57] LABS: Absolute Lymphocyte Count 3.13 X10^3/uL (0.83-4.51); Absolute Neutrophil Count 4.8 X10^3/uL (2.0-7.7); Basophil# 0.09 X10^3/uL; Eosinophil# 0.13 X10^3/uL; Eosinophils% 1.4 % (0-5); Hematocrit 38.5 % (37-47); Hemoglobin 12.7 g/dL (12.0-15.0); Lymphocyte # 3.13 X10^3/ul (0.83-4.51); Lymphocyte % 34.9 % (19-41); Mean Corpuscular Hgb 25.3 pg (27.0-32.0); Mean Corpuscular Volume 76.8 fL (81-99); Mean Platelet Vol. 10.3 fl (6.2-12.0); Monocyte# 0.76 X10^3/uL; Monocyte% 8.5 % (0-10); NRBC Flagged by Analyzer 0 % (0-5); Neutrophil # 4.84 X10^3/uL (2.7-7.7); Platelet Count 303 K/mm3 (150-450); RBC Distribution Width CV 17.9 % (11.6-14.6); RBC Distribution Width SD 50.4 fl (35.1-43.9); Red Blood Count 5.01 M/mm3 (4.2-5.4)
[2022-06-16] MEDS: 0.9% Normal Saline 1,000 ML 1000 ML IV (20:03)
[2022-06-16 20:04] LABS: Internal QC Validated? YES +Cl - CLEAR BKGD; Pregnancy, Serum, hCG Quali. POSITIVE Negative
[2022-06-16] MEDS: Ondansetron 4 MG/2 ML Vial IV (20:04)
[2022-06-16 20:09] LABS: Bacteria 0 SEEN /hpf (None Seen); Mucous, Urine 0 SEEN /hpf (<or=2+); Red Blood Cells-Urine 0 SEEN /hpf (0-5); White Blood Cells 0 SEEN /hpf (0-5)
[2022-06-16 20:09] LABS: Anion Gap 7 (5-15); BUN 10 mg/dL (7-18); BUN/Creat Ratio 14.9 RATIO (10-20); Calcium,Total 8.4 mg/dL (8.5-10.1); Chloride 111 mmol/L (98-107); Creatinine, Serum 0.67 mg/dL (0.55-1.02); EST Glomerular Filtration Rate 115 mL/min (>60); Est Glom Filt Rate - Afr Amer 139 mL/min (>60); Estimated Creatinine Clearance 103.28 ml/min; Glucose 92 mg/dL (74-106); Potassium 3.6 mmol/L (3.5-5.1); Sodium Level 141 mmol/L (136-145)
[2022-06-16 20:12] LABS: Color, Urine Yellow (Yellow); Glucose, Dipstick Normal (Normal); Ketone-Dipstick Negative (Negative); Leukocyte Esterase-Dipstick 25 /ul (Negative); Nitrite-Dipstick Negative (Negative); Occult Blood-Urine Negative /ul (Negative); Protein-Dipstick Negative (Negative); Specific Gravity, Urine 1.015 (1.002-1.030); Urine Bilirubin Dipstick Negative (Negative); Urine Clarity Clear (Clear); Urine Urobilinogen 1 mg/dl (Normal)
[2022-06-16 20:37] LABS: Squamous Epithelial Cells - UA 10-25 SEEN /hpf (5-10)
[2022-06-16 21:08] VITALS: BP 132/74; PULSE 82; RESP 15; O2SAT 98
== END 2022-06-16 21:10 | disposition home or self-care (01) ==
PROVIDERS: Emergency Provider Emergency Medicine; PCP Student in an Organized Health Care Education/Training Program; Visit Provider Emergency Medicine
DX: O26.891 Other specified pregnancy related conditions, first trimester (principal); F31.9 Bipolar disorder, unspecified; R10.9 Unspecified abdominal pain; F43.10 Post-traumatic stress disorder, unspecified; Z90.49 Acquired absence of other specified parts of digestive tract; E66.9 Obesity, unspecified; O21.9 Vomiting of pregnancy, unspecified; O99.341 Other mental disorders complicating pregnancy, first trimester; O99.211 Obesity complicating pregnancy, first trimester
CPT/HCPCS: 80048; 81001; 84703; 85025; 96361; 96374; 99283; J7030; A4216; J2405

== ENCOUNTER 2022-06-26 13:30 | Outpatient (RCR) | payer MEDICAID, SELFPAY ==
--- NOTE | 2022-06-11 17:52 | HP.PTEVAL_ITS ---
Patient's Visit Information DARYA DEWITT is a 21 year old F referred to Physical Therapy by Dr. Melodie Richey MD with a diagnosis of PELVIC FLOOR DYSFUNCTION - HIGH TONE, PELVIC PAIN. Date of Evaluation: 06/11/22 Physical Therapist: Judy Eastman, PT, Cert MDT - Visit Plan Frequency: 1x/Week Duration: 6 WKS Plan: *CHECK AUTH: RECORD # OF VISITS APPROVED AND EXPIRATION DATE. CHECK CODES APPROVED WITH POC*. INSTRUCT IN PELVIC FLOOR RELAXATION AND STRENG THENING. TRAINING IN COORDINATION OF PELVIC FLOOR MUSCULATURE WITH CORE (TRANSVERSE ABDOMINUS) STRENGTHENING. TRAINING IN ABDOMINAL CAVITY PRESSURE MGMT WITH ADL'S TO DECREASE ANY URINARY LEAKING AND INCREASED PRESSURE ON PELVIC FLOOR. EDUCATION IN PROPER FLUID INTAKE AND VOIDING SCHEDULE. 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 LIVES WITH AND 11 MONTH OLD SON. Disability: NO. Present symptoms: VAGINAL AND ABDOMINAL PAIN WITH INTERCOURSE AND TAMPONS X ABOUT 9-10 MONTHS. URINE LEAKAGE WITH COUGHING/SNEEZING AND URGE INCONTINENCE (SINCE ABOUT 1 YEAR AGO). CHRONIC UTI'S OVER THE LAST YEAR AND CURRENTLY BEING TREATED FOR UTI. (CRYSTAL LOW BACK PAIN TOO - CONSTANT RANGING 4-7/10). Pain Scale: PELVIC PAIN: WORST 5/10, LEAST 3/10. Currently: 3/10. Is it getting better, worse or staying the same: WORSE. Commenced as a result of: AND CHILDBIRTH. Worse: INTERCOURSE, TAMPON USE, HAVING A BOWEL MVMT, PROLONGED SITTING, RISING FROM SITTING CAUSES LEAKING MOST OFTER INCLUDING GETTING OUT OF THE CAR. INCREASED LBP AFTER BOWEL MVMT. BENDING AND PICKING SON UP INCREASES LBP. PELVIC EXAMS. Better: AZO AND TYLONOL. Disturbed sleep: YES - WAKES UP DUE TO BACK AND PELVIC PAIN. GETTING UP TO GO TO THE BATHROOM 1-2 TIMES A NIGHT. Previous history/Previous treatment: TREATED BY OB AND DR. RICHEY FOR UTI'S. NO PRIOR PELVIC FLOOR PT. NO PELVIC SURGERIES. WENT TO [facility] FOR ABOUT 2-3 VISITS FOR LBP APPROX OCTOBER 2021 WITHOUT RELIEF. HAS BEEN SEEING [facility] SINCE 2019 FOR CRYSTAL HIP ISSUES - TREATMENTS INCLUDE ADJUSTMENTS OF NECK, BACK, TMJ AND HIPS. PT X 2 EPISODES OF CARE FOR R ANKLE AFTER FX AND ORIF 2010 WITH 2 subsequent INJURIES AND INABILITY TO WALK RIGHT WHICH PATIENT RELATES SOME OF HER [facility]IR[facility] NEEDS TO. NO BACK SURGERY. NO FADUMO'S BUT DID HAVE AN EPIDURAL DURING CHILDBIRTH WITH LEAK WITHOUT BLOOD PATCH BUT EPIDURAL MIGRAIN RESOLVED AFTER ABOUT 8 WKS. Treatment this episode: CURRENTLY ON ANTIBIOTIC AND AZO. Coughing/sneezing/straining: POSITIVE FOR PAIN AND URINE LEAKING. Gait: PATIENT C/O LBP AND PELVIC PAIN WALKING BUT NO AD USE OR FALLING. Bowel Dysfunc tion: YES - PATIENT REPORTS BOWEL INCONTINENCE AT TIMES AND HAS SANDRA'T WITH GI SPECIALIST PENDING IN JULY. SAW BARIATRIC ENDROCRINOGIST AT [facility] FOR BOWEL INCONTINENCE AND THE GALLBLADDER WAS REMOVED BUT BOWEL INCONTINENCE DID NOT GET BETTER AND SX IS AWARE PER PATIENT REPORT. PATIENT REPORTS THE SX THEN RECOMMENDED GI CONSULT AND THAT WAS COMPLETED BY PCP AND PATIENT STATES DR. RICHEY IS AWARE. Accidents: NO. Unexplained weight loss: NO. Imaging: RECENT CAT SCAN IN [facility] SHOWING THICKENING OF BLADDER WALL consistent WITH BACTERIA PER PATIENT REPORT. REPORTS HAVING FOLLOW UP WITH DR. RICHEY AFTER CAT SCAN. PMH/Recent major surgery: BARIATIRIC SX JUL 2019 - LOST 150 LBS BUT HAS GAINED 60 LBS BACK SINCE . GALL BLADDER REMOVAL NOVEMBER 08 2021. R ANKLE ORIF 2010. INSULIN resistance. PCOS. ANEMIA. MIGRAINE DISORDER. Meniere's Dz. OTHER: CHRONIC LOW GRADE FEVERS FOR THE LAST YEAR. PATIENT REPORTS THAT DR. RICHEY TOLD HER THAT IF PHYSICAL THERPAY DOESN'T WORK SX IS THE NEXT OPTION. FOLLOW UP WITH DR. RICHEY PENDING JUL 09 2022. - Objective Sitting/Standing Posture: POOR. FH. RSH'S. NO RELEVENT LATERAL LUMBAR SHIFT. ILIAC CRESTS SYMMETRICAL IN STANDING. Active Correction of posture: NE. Other Observations: INDEP GAIT AND TRANSFERS. ABLE TO TRANSFER INDEP'LY FROM SIT TO STAND WITHOUT UE ASSIST. Sensory deficit: CRYSTAL LE LIGHT TOUCH SENSATION GROSSLY INTACT AND SYMMETRICAL. ROM deficit: CRYSTAL LE'S WFL. Motor deficit: CRYSTAL LE'S GROSSLY 5/5 EXCEPT HIPS 4/5 AND PATIENT DENIES PAIN WITH TESTING. Dural Signs: NEGATIVE CRYSTAL LE'S. Lumbar mvmt loss: flex - MIN - INCREASES LBP AND RIGHT ANTERIOR ABDOMINAL PAIN. NW. ext - MIN - DECREASES LBP AND INCREASES R ANT ABD PAIN. NW. R SG - NIL. L SG - NIL. Core strength: POOR. Palpation: NO ACUTE ABDOMINAL LOW BACK OR PELVIS PAIN WITH PALPATION EXTERNALLY. NO INTERNAL PELVIC EXAM DUE TO INFECTION. - Goals Goal 1:: DECREASE URINARY LEAKAGE EPISODES TO LESS THAN DAILY. Goal Time Frame: 2-4 Weeks Goal 2:: PATIENT WILL SUCCESSFULLY DELAY VOIDING FOR 10 MINUTES WHEN URGENCY OCCURS Goal Time Frame: 2-4 Weeks Goal 3:: PATIENT WILL HAVE INCREASED PELVIC FLOOR MUSCLE STRENGTH GRADE TO 5/5 Goal Time Frame: 4-6 Weeks Goal 4:: PATIENT WILL DEMONSTRATE 10 CONSISTENT AND CONSECUTIVE 10 SECOND PELVIC FLOOR MUSCLE CONTRACTIONS TO DEMONSTRATE IMPROVED PELVIC FLOOR ENDURANCE. Goal Time Frame: 4-6 Weeks Goal 5:: PATIENT WILL BE ABLE TO HAVE SEXUAL RELATIONS WITH HER WITHOUT PAIN. Goal Time Frame: 6-8 Weeks Goal 6:: PATIENT WILL BE INDEP WITH A HEP/HOME INSTRUCTIONS FOR CONTINUED IMPROVEMENT ONCE FORMAL PHYSICAL THERAPY CONCLUDES. Goal Time Frame: 4-6 Weeks - Anticipated Interventions Patient/Client Instruction: Educate patient on: Condition, Plan of Care, Risk Factors For the Purpose of:: To improve self management Therapeutic Exercise to Include: Strength training, Endurance training, Postural training, Neuromotor development, Relaxation training, Dynamic Lumbar Stabilization For the Purpose of:: To decrease pain, To improve muscle performance and motor function, To increase tolerance to activity/condition/position, To improve ability of physical actions for home/community/work/leisure, To improve gait and locomotor functions Thank you for the opportunity to evaluate your patient. For Medicare and Medicare HMO plans, please review the plan of care and approve it. It will need to be FAXED BACK to us at [phone] for Medicare purposes. For Medicare only, by signing this I certify the plan of care. Please let me know if there are questions or concerns regarding this plan of care. Physician Signature: Date:
--- NOTE | 2022-07-11 13:03 | HP.PTDCNRP_ITS ---
DARYA DEWITT was seen in my office for initial evaluation on 06/11/22. The following Plan of Care was established for this patient: Initial Frequency: 1x/Week Initial Duration: 6 WKS Patient/Client Instruction: Educate patient on: Condition, Plan of Care, Risk Factors For the Purpose of:: To improve self management Therapeutic Exercise to Include: Strength training, Endurance training, Postural training, Neuromotor development, Relaxation training, Dynamic Lumbar Stabilization For the Purpose of:: To decrease pain, To improve muscle performance and motor function, To increase tolerance to activity/condition/position, To improve ability of physical actions for home/community/work/leisure, To improve gait and locomotor functions This patient was last seen in our office . Pertinent comments regarding their Physical therapy will appear below: PATIENT ATTENDED INITIAL PHYSICAL THERAPY EVALUATION AND ONE FOLLOW UP. PATIENT THEN CANCELLED ALL REMAINING SANDRA'TS DUE TO NOT HAVING TRANSPORTATION. WE O FFERED OUR FREE VAN SERVICE BUT PATIENT DECLINED. At this point I will be discontinuing this patient from physical therapy. I would be happy to see this patient again in the future if found appropriate by the physician. Thank you! Judy Eastman, PT, Cert MDT
== END 2022-06-26 19:00 | disposition home or self-care (01) ==
LOC: PT 13:30
PROVIDERS: PCP Student in an Organized Health Care Education/Training Program; Referring Provider Urology; Visit Provider Urology
DX: M99.05 Segmental and somatic dysfunction of pelvic region (principal)
CPT/HCPCS: 97162; 97530

== ENCOUNTER → 2022-06-29 | Outpatient (CLI) | payer MEDICAID, SELFPAY ==
--- NOTE | 2022-06-29 09:45 | TELEMED_ITS ---
[facility] has confirmed receipt of a request for visit. This document confirms receipt of the order initiating the consult. To find the results of the consultation, please view the patient's reports for the scanned Telemed Consult.
[2022-06-29 10:20] LABS: Absolute Lymphocyte Count 2.03 X10^3/uL (0.83-4.51); Absolute Neutrophil Count 4.7 X10^3/uL (2.0-7.7); Basophil# 0.05 X10^3/uL; Basophil% 0.7 % (0-1); Eosinophil# 0.19 X10^3/uL; Eosinophils% 2.6 % (0-5); Hematocrit 39.8 % (37-47); Hemoglobin 12.5 g/dL (12.0-15.0); Lymphocyte # 2.03 X10^3/ul (0.83-4.51); Lymphocyte % 27.3 % (19-41); Mean Corp Hgb Conc 31.4 g/dL (32-36); Mean Corpuscular Hgb 24.9 pg (27.0-32.0); Mean Corpuscular Volume 79.3 fL (81-99); Mean Platelet Vol. 10.5 fl (6.2-12.0); Monocyte# 0.43 X10^3/uL; Monocyte% 5.8 % (0-10); NRBC Flagged by Analyzer 0 % (0-5); Neutrophil # 4.72 X10^3/uL (2.7-7.7); Neutrophil % 63.5 % (47-70); Platelet Count 304 K/mm3 (150-450); RBC Distribution Width SD 48.1 fl (35.1-43.9); Red Blood Count 5.02 M/mm3 (4.2-5.4); White Blood Count 7.4 K/mm3 (4.4-11.0)
[2022-06-29 10:47] LABS: ALB/GLOB Ratio 1.1 RATIO (0.9-2.4); AST(SGOT) 6 U/L (15-37); Alanine Aminotransfer ALT/SGPT 14 U/L (13-56); Albumin, Serum 3.6 g/dL (3.2-5.0); Alkaline Phosphatase 135 U/L (45-117); Anion Gap 5 (5-15); BUN 7 mg/dL (7-18); BUN/Creat Ratio 11.8 RATIO (10-20); Calcium,Total 8.7 mg/dL (8.5-10.1); Chloride 110 mmol/L (98-107); Creatinine, Serum 0.59 mg/dL (0.55-1.02); EST Glomerular Filtration Rate 133 mL/min (>60); Est Glom Filt Rate - Afr Amer 160 mL/min (>60); Globulin 3.4 g/dL (2.2-4.2); Glucose 91 mg/dL (74-106); LDH 128 U/L (84-246); Potassium 4.1 mmol/L (3.5-5.1); Sodium Level 140 mmol/L (136-145)
[2022-06-29 10:57] LABS: Magnesium 2.3 mg/dL (1.6-2.6); Thyroid Stim Hormone (TSH) 0.57 uIU/mL (0.358-3.74)
[2022-06-29 11:43] LABS: Ferritin 23 ng/mL (8-252); Iron 32 ug/dL (50-170); Iron Binding Capacity,Total 415 ug/dL (250-450); PERCENT IRON SATURATION 7.7 % (15.0-55.0)
== END | disposition home or self-care (01) ==
PROVIDERS: Internal Medicine Medical Oncology; PCP Student in an Organized Health Care Education/Training Program; Referring Provider Psychiatry & Neurology Neurology; Visit Provider Psychiatry & Neurology Neurology
DX: R56.9 Unspecified convulsions (principal); K95.89 Other complications of other bariatric procedure; D50.8 Other iron deficiency anemias
CPT/HCPCS: 82607; 36415; 80053; 82728; 82746; 83540; 83550; 83615; 83735; 84443; 85025; 95819

== ENCOUNTER → 2022-07-18 | Outpatient (CLI) | payer MEDICAID, SELFPAY ==
[2022-07-18 10:21] LABS: Absolute Lymphocyte Count 2.16 X10^3/uL (0.83-4.51); Basophil# 0.04 X10^3/uL; Basophil% 0.4 % (0-1); Eosinophil# 0.08 X10^3/uL; Eosinophils% 0.9 % (0-5); Hematocrit 39.3 % (37-47); Hemoglobin 12.3 g/dL (12.0-15.0); Lymphocyte # 2.16 X10^3/ul (0.83-4.51); Lymphocyte % 24.2 % (19-41); Mean Corp Hgb Conc 31.3 g/dL (32-36); Mean Corpuscular Hgb 25.1 pg (27.0-32.0); Mean Corpuscular Volume 80.2 fL (81-99); Mean Platelet Vol. 10.8 fl (6.2-12.0); Monocyte# 0.58 X10^3/uL; Monocyte% 6.5 % (0-10); NRBC Flagged by Analyzer 0 % (0-5); Neutrophil # 6.04 X10^3/uL (2.7-7.7); Neutrophil % 67.6 % (47-70); Platelet Count 293 K/mm3 (150-450); RBC Distribution Width CV 15.8 % (11.6-14.6); RBC Distribution Width SD 45.5 fl (35.1-43.9); White Blood Count 8.9 K/mm3 (4.4-11.0)
[2022-07-18 10:50] LABS: AST(SGOT) 12 U/L (15-37); Alanine Aminotransfer ALT/SGPT 17 U/L (13-56); Albumin, Serum 3.5 g/dL (3.2-5.0); Alkaline Phosphatase 132 U/L (45-117); Anion Gap 6 (5-15); BUN 8 mg/dL (7-18); Calcium,Total 8.5 mg/dL (8.5-10.1); Chloride 109 mmol/L (98-107); Creatinine, Serum 0.57 mg/dL (0.55-1.02); EST Glomerular Filtration Rate 138 mL/min (>60); Est Glom Filt Rate - Afr Amer 167 mL/min (>60); Globulin 3.4 g/dL (2.2-4.2); Glucose 91 mg/dL (74-106); Potassium 3.9 mmol/L (3.5-5.1); Protein, Total 6.9 g/dL (6.4-8.2); Sodium Level 138 mmol/L (136-145)
[2022-07-18 10:56] LABS: Hemoglobin A1c 5.2 % (3.8-5.6)
[2022-07-18 11:18] LABS: HIV - WCH Non-Reactive (Nonreactive); Hepatitis B Surface Antigen Non-Reactive (Nonreactive); Hepatitis C Antibody Non-Reactive (Nonreactive); Rubella IgG Reactive (Nonreactive); Syphilis Antibodies Non-reactive; Vitamin B12 296 pg/mL (211-911)
[2022-07-19 08:59] LABS: V-Zoster IgG (Immunity) 169 index (Immune >165)
[2022-07-20 04:07] LABS: Chlamydia By Nucleic Acid AMP Negative (Negative)
[2022-07-20 13:50] LABS: Gonococcus By Nucleic Acid AMP Negative (Negative)
[2022-07-26 10:29] LABS: HPV Reflexed? NOT INDICATED
== END | disposition home or self-care (01) ==
PROVIDERS: PCP Student in an Organized Health Care Education/Training Program; Visit Provider Student in an Organized Health Care Education/Training Program
DX: Z34.81 Encounter for supervision of other normal pregnancy, first trimester (principal)
CPT/HCPCS: 36415; 80053; 82306; 82607; 82746; 83036; 85025; 86703; 86762; 86780; 86787; 86803; 87077; 87086; 87088; 87186; 87340; 87491; 87591; 88175; G0145

== ENCOUNTER 2022-07-30 22:13 | Emergency (ER) | payer MEDICAID, SELFPAY ==
[2022-07-30 22:14] VITALS: BP 130/68; PULSE 91; RESP 18; TEMP 36.4; O2SAT 100; BMI 40.9
--- NOTE | 2022-07-30 22:29 | EX.ED.DYSGE1 ---
HPI History of Present Illness Chief Complaint: Cold Sx Detail of Chief Complaint: Shortness of breath Informant: patient Narrative Narrative: Patient present secondary to shortness of breath. She has been fighting a sinus infection with intermittent fevers for the past 10 days. She is currently on amoxicillin. Tonight she states that she felt like she could not get enough air in and take a deep breath. She does not have chest pain. Her cough is productive sputum. She states is initially greenish in color but is now clearing. No fever. She was seen in urgent care earlier today and had a negative COVID test. [facility] Medical History Anemia Arthritis Bipolar 2 disorder Bone fracture Constipation Frequent headaches Gastrointestinal problem Generalized anxiety disorder GERD (gastroesophageal reflux disease) H/O emotional problems Hearing problem History of PCOS Hypoglycemia IBS (irritable bowel syndrome) OCD (obsessive compulsive disorder) PCOS (polycystic ovarian syndrome) PTSD (post-traumatic stress disorder) Seasonal allergies Sleep apnea UTI (urinary tract infection) Vision problems Vitamin deficiency Home Medications ergocalciferol (vitamin D2) 1,250 mcg (50,000 unit) capsule 50,000 unit PO QWEEK 07/06/20 [History Last Taken Unknown] ferrous sulfate 325 mg (65 mg iron) tablet 325 mg PO DAILY 07/06/20 [History Last Taken Unknown] ascorbic acid (vitamin C) 250 mg tablet 250 mg PO DAILY 11/16/21 [History Last Taken Unknown] docusate sodium 100 mg capsule 100 mg PO BID PRN constipation 11/16/21 [History Last Taken Unknown] hydroxyzine HCl 10 mg tablet 10 mg PO TID PRN Itching 11/16/21 [History Last Taken Unknown] nystatin 100,000 unit/gram topical powder (Nyamyc) 100,000 gm topical PRN PRN Itching 01/26/22 [History Last Taken Unknown] triamterene 37.5 mg-hydrochlorothiazide 25 mg capsule 1 cap PO DAILY 04/27/22 [History Last Taken Unknown] Bilateral knee high (10-20) compression stockings #2 ea 06/19/22 [Rx Last Taken Unknown] dimenhydrinate 50 mg tablet (Driminate) 50 mg PO TID PRN dizziness or vertigo #90 tabs 06/19/22 [Rx Last Taken Unknown] loratadine 10 mg tablet 10 mg PO DAILY PRN Headache/sinus congestion #30 tabs 06/19/22 [Rx Last Taken Unknown] meclizine 25 mg tablet 25 mg PO TID PRN dizziness #90 tabs 06/19/22 [Rx Last Taken Unknown] ondansetron 4 mg disintegrating tablet 4 mg PO TID PRN nausea and vomiting #90 tabs 06/19/22 [Rx Last Taken Unknown] Allergy/AdvReac Type Severity Reaction Status Date / Time adhesive tape Allergy Intermediate Rash Verified 07/30/22 22:18 NSAIDS (Non-Steroidal Allergy Bleeding Verified 07/30/22 22:18 Anti-Inflamma Family History Mother Alcohol abuse Anemia Arthritis Father Alcohol abuse Grandmother Anemia Arthritis History of blood transfusion Hypertension Kidney disease Sister Asthma Seizures Grandfather Arthritis Depression Diabetes Surgical History H/O bariatric surgery History of ankle surgery Hx of cholecystectomy Hx of tonsillectomy Social History Smoking Status: Never smoker second hand exposure: No alcohol intake: current alcohol intake frequency: holidays/special occasions only substance use type: does not use what type of physical activity do you participate in: other isac/yazdanism: Rastafari seatbelt use: always ROS ROS ED Constitutional Constitutional ED: Denies chills or fever(s) Eyes Eyes: Denies change in vision or discharge from eye(s) ENT ENT ED: Reports other Details: Sinus pressure, congestion ; Denies discharge from eye(s), rhinorrhea or sore throat Cardiovascular Cardiovascular: Denies chest pain or palpitations Respiratory/Chest Respiratory/Chest: Reports cough and dyspnea Gastrointestinal Gastrointestinal: Denies abdominal pain, diarrhea, nausea or vomiting Genitourinary Genitourinary ED: Denies dysuria Musculoskeletal Musculoskeletal: Denies back pain or extremity pain Integumentary Denies Abrasions or rash Neurologic Neurologic: Denies headache(s) or weakness Psychiatric Psychiatric: Denies anxiety or depression Allergic/Immunologic Allergic/Immunologic ED: Denies lip swelling or urticaria EXAM Physical Exam Const Vital Signs: 07/30/22 22:14 07/30/22 22:25 07/30/22 22:41 Temperature 97.5 F L Temperature Source Temporal Pulse Rate 91 92 Respiratory Rate 18 16 Respiratory Effort Short of Breath Blood Pressure 130/68 H Blood Pressure Mean 88 Pulse Ox 100 Oxygen Delivery Method Room Air Positive well nourished and well developed General Appearance ED: well developed HEENT Reports normocephalic and head/scalp atraumatic Eyes PERRL and EOMs intact bilaterally Neck supple Chest Wall inspection of chest normal and palpation of chest normal Resp normal respiratory effort and clear to auscultation bilaterally Cardio regular rate and regular rhythm GI normal to inspection, nondistended, normoactive bowel sounds Palpation: soft Extremity normal to inspection Neuro oriented x3 and no sensory deficits noted Sensorium / Orientation: alert Motor Exam: strength 5/5 throughout Psych mental status grossly normal Skin no rashes or lesions noted MDM MDM MDM Narrative Medical decision making narrative: Patient given DuoNeb treatment here. Two-view chest x-ray obtained. Radiography Chest X-Ray - ED: 2 View, Read by ED Physician, Normal, Heart, Lungs and Mediastinum Diagnostic Testing: Clinical Impression(s) from Imaging Studies Chest X-Ray 07/30/22 22:30 IMPRESSION: No radiographic evidence of acute cardiopulmonary disease. Electronically Signed: Elie Westfall MD at 22:52 EST , Treatment and Re-Evaluation Narrative: 2 view chest x-ray per my interpretation reveals no focal infiltrate. No pleural effusion. Radiology interpretation reviewed and agrees. Patient reports no significant change in her breathing with DuoNeb treatment. Her O2 sat is 100%. She is reassured with these findings. She will continue Mucinex/Robitussin and I encouraged her to drink a lot of fluids to help thin the mucus. Return instructions are given. Discharge Plan Triage Chief Complaint: Cold Sx ED Provider: Jessica Parry Dx/Rx/DC Orders Clinical Impression: Dyspnea Instructions: ED Dyspnea Prescriptions: No Action ascorbic acid (vitamin C) 250 mg tablet 250 mg PO DAILY hydroxyzine HCl 10 mg tablet 10 mg PO TID PRN (Reason: Itching) docusate sodium 100 mg capsule 100 mg PO BID PRN (Reason: constipation) nystatin [Nyamyc] 100,000 unit/gram powder 100,000 gm topical PRN PRN (Reason: Itching) Label Comments: apply 1 APPLICATION topically if needed for rash triamterene-hydrochlorothiazid 37.5-25 mg capsule 1 cap PO DAILY (DME) Bilateral knee high (10-20) compression stockings See Rx Instructions .Route .MEDSUPPLY Qty: 2 0RF Rx Instructions: As directed ondansetron 4 mg tablet,disintegrating 4 mg PO TID PRN (Reason: nausea and vomiting) Qty: 90 3RF dimenhydrinate [Driminate] 50 mg tablet 50 mg PO TID PRN (Reason: dizziness or vertigo) Qty: 90 3RF loratadine 10 mg tablet 10 mg PO DAILY PRN (Reason: Headache/sinus congestion) Qty: 30 4RF meclizine 25 mg tablet 25 mg PO TID PRN (Reason: dizziness) Qty: 90 3RF ferrous sulfate 325 MG tablet 325 mg PO DAILY ergocalciferol (vitamin D2) 50,000 UNIT capsule 50,000 unit PO QWEEK Primary Care Provider: Christoph Gann Referrals: Christoph Gann DO [Primary Care Provider] - 3-5 Days if not improving Disposition Disposition: Home, Self Care
--- NOTE | 2022-07-30 22:30 | RAD_ITS ---
EXAM: XR CHEST, 2 VIEWS CLINICAL INDICATION: sob TECHNIQUE: Frontal and lateral views of the chest. This report was created using [employer] report generation technology. COMPARISON: None. FINDINGS: LUNGS AND PLEURAL SPACES: Unremarkable. No consolidation or edema. No pneumothorax. No effusion. HEART: Unremarkable. Cardiac silhouette not enlarged. MEDIASTINUM: Central airways and mediastinal contour are unremarkable. BONES/JOINTS: Unremarkable. SOFT TISSUES: Unremarkable. RAD/Chest PA and Lateral IMPRESSION: No radiographic evidence of acute cardiopulmonary disease. Electronically Signed: Elie Westfall MD at 22:52 EST ,
[2022-07-30] MEDS: Ipratropium/Albuterol Sulfate 3 ML AMPUL.NEB INHALATION (22:40)
[2022-07-30 22:41] VITALS: PULSE 92; RESP 16
== END 2022-07-30 23:30 | disposition home or self-care (01) ==
PROVIDERS: Emergency Provider Emergency Medicine; PCP Student in an Organized Health Care Education/Training Program; Visit Provider Emergency Medicine
DX: R06.02 Shortness of breath (principal); R50.9 Fever, unspecified; J32.9 Chronic sinusitis, unspecified; Z20.822 Contact with and (suspected) exposure to COVID-19
CPT/HCPCS: 71046; 94640; 99283

== ENCOUNTER 2022-08-29 06:33 | Emergency (ER) | payer MEDICAID, SELFPAY ==
[2022-08-29 06:34] VITALS: BP 107/57; PULSE 65; RESP 16; TEMP 36.9; O2SAT 97; BMI 41.5
--- NOTE | 2022-08-29 07:00 | EDS_ITS ---
HPI HPI - GI History of Present Illness Chief Complaint: Abd Pain Detail of Chief Complaint: Nausea, vomiting and loose stools. 15 weeks . Informant: patient Abdominal Pain/Flank Pain Onset: Days Timing: Intermittent Current Severity: Mild Maximum Severity: Mild Worsened by: Nothing Relieved by: Nothing Nausea/Vomiting/Emesis GI Symptom: Positive for Nausea and Vomiting Onset: Days Quality: Positive for Nonbilious Severity: Mild Diarrhea/Melena/Hematochezia GI Symptom: Positive for Diarrhea; Negative for Melena or Hematochezia Onset: Days Stool Quality: Positive for Loose Severity: Mild Associated Symptoms Associated Symptoms: Negative for Dysuria, Frequency, Hematuria or Urgency Narrative Narrative: 48-year-old female Ab0 that is currently around 15 weeks . States her due date is February 19, 2023. States that she has had intermittent nausea and vomiting last several weeks. Intermittent loose stools last several days. Denies any dysuria. Denies any vaginal bleeding. States she is having mild crampy abdominal discomfort. She sees [place] [facility] Dr. Elvia Tucker. Patient states she has had an ultrasound for this which showed a single live IUP. She has had episodes like this before. She has a past medical history of bipolar, OCD, reflux, prior bariatric surgery with a cholecystectomy. She also has a history of anxiety and irritable bowel. Denies any fever. Denies any dysuria. Prior similar symptoms: Yes Recent Illness/Hospitalization: No PFSH PFS Medical History Anemia Arthritis Bipolar 2 disorder Bone fracture Constipation Frequent headaches Gastrointestinal problem Generalized anxiety disorder GERD (gastroesophageal reflux disease) H/O emotional problems Hearing problem History of PCOS Hypoglycemia IBS (irritable bowel syndrome) OCD (obsessive compulsive disorder) PCOS (polycystic ovarian syndrome) PTSD (post-traumatic stress disorder) Seasonal allergies Sleep apnea UTI (urinary tract infection) Vision problems Vitamin deficiency Home Medications ergocalciferol (vitamin D2) 1,250 mcg (50,000 unit) capsule 50,000 unit PO QWEEK 07/06/20 [History Last Taken Unknown] ferrous sulfate 325 mg (65 mg iron) tablet 325 mg PO DAILY 07/06/20 [History Last Taken Unknown] ascorbic acid (vitamin C) 250 mg tablet 250 mg PO DAILY 11/16/21 [History Last Taken Unknown] docusate sodium 100 mg capsule 100 mg PO BID PRN constipation 11/16/21 [History Last Taken Unknown] hydroxyzine HCl 10 mg tablet 10 mg PO TID PRN Itching 11/16/21 [History Last Taken Unknown] nystatin 100,000 unit/gram topical powder (Nyamyc) 100,000 gm topical PRN PRN Itching 01/26/22 [History Last Taken Unknown] triamterene 37.5 mg-hydrochlorothiazide 25 mg capsule 1 cap PO DAILY 04/27/22 [History Last Taken Unknown] Bilateral knee high (10-20) compression stockings #2 ea 06/19/22 [Rx Last Taken Unknown] dimenhydrinate 50 mg tablet (Driminate) 50 mg PO TID PRN dizziness or vertigo #90 tabs 06/19/22 [Rx Last Taken Unknown] loratadine 10 mg tablet 10 mg PO DAILY PRN Headache/sinus congestion #30 tabs 06/19/22 [Rx Last Taken Unknown] meclizine 25 mg tablet 25 mg PO TID PRN dizziness #90 tabs 06/19/22 [Rx Last Taken Unknown] ondansetron 4 mg disintegrating tablet 4 mg PO TID PRN nausea and vomiting #90 tabs 06/19/22 [Rx Last Taken Unknown] Allergy/AdvReac Type Severity Reaction Status Date / Time adhesive tape Allergy Intermediate Rash Verified 07/30/22 22:18 NSAIDS (Non-Steroidal Allergy Bleeding Verified 07/30/22 22:18 Anti-Inflamma Family History Mother Alcohol abuse Anemia Arthritis Father Alcohol abuse Grandmother Anemia Arthritis History of blood transfusion Hypertension Kidney disease Sister Asthma Seizures Grandfather Arthritis Depression Diabetes Surgical History H/O bariatric surgery History of ankle surgery Hx of cholecystectomy Hx of tonsillectomy Social History Smoking Status: Never smoker second hand exposure: No alcohol intake: current alcohol intake frequency: holidays/special occasions only substance use type: does not use what type of physical activity do you participate in: other isac/jehovah's witness: Islam seatbelt use: always ROS ROS ED ROS Narrative Nausea and vomiting. Loose stools. Crampy abdominal discomfort. Review of Systems ROS Unobtainable: Denies due to encephalopathy Constitutional Constitutional ED: Denies chills or fever(s) ENT ENT ED: Denies ear pain, rhinorrhea or sore throat Cardiovascular Cardiovascular: Denies chest pain Respiratory/Chest Respiratory/Chest: Denies cough or dyspnea Gastrointestinal Gastrointestinal: Reports abdominal pain, diarrhea, nausea and vomiting; Denies constipation or melena Genitourinary Genitourinary ED: Denies dysuria or hematuria Musculoskeletal Musculoskeletal: Denies arthralgias Integumentary Denies abscess or Abrasions Neurologic Neurologic: Denies headache(s) Psychiatric Psychiatric: Denies anxiety or depression Endocrine Endocrinology: Denies polydipsia Allergic/Immunologic Allergic/Immunologic ED: Denies mouth swelling, tongue swelling or urticaria EXAM Physical Exam Narrative Exam Narrative: 21-year-old female no acute distress. Vital signs stable afebrile. H EENT exam mild dry mucous members. Give dry reactive light. Neck nontender. Lungs clear to auscultation bilaterally. Heart regular rhythm rate about 65 no murmur. Chest wall nontender. Abdomen soft, and nondistended normal bowel sounds no peritoneal signs. No localizing tenderness. No hernia or mass. No signs of obstruction. Patient is moving all 4 extremities. Calves are nontender with edema or cords. Back nontender. Neurologically she is awake and alert. Benign appearing exam. Const Vital Signs: 08/29/22 06:34 Temperature 98.5 F Temperature Source Oral Pulse Rate 65 Respiratory Rate 16 Blood Pressure 107/57 L Blood Pressure Mean 73 Pulse Ox 97 Oxygen Delivery Method Room Air Positive well nourished, well developed and obese; Negative for cachectic, contractures or unkempt General Appearance ED: well developed and NAD; Negative for unkempt, cachectic, contractures or pallor Nutritional Appearance: obese; Negative for cachectic HEENT Reports moist mucous membranes; Denies dry mucous membranes normocephalic and atraumatic; Negative for trauma or tenderness Mouth ED: No dry mucous membranes Mouth: No dry mucous membranes Eyes PERRL and EOMs intact bilaterally General Eye ED: Negative for pale conjunctiva, scleral icterus or other Neck no lymphadenopathy General: Negative for tenderness Carotids: Negative for other Lymph Lymphatic: Negative for other Resp normal respiratory effort and clear to auscultation bilaterally Effort and Inspection: Negative for respiratory distress or retractions Auscultation: Negative for rales, rhonchi or wheezes Cardio regular rate, regular rhythm, S1 normal heart sound, S2 normal heart sound and no murmurs Rate: Negative for bradycardia or tachycardic Rhythm: Negative for abnormal rhythm GI non-tender, non-distended and no masses Inspection: Negative for abdominal distention Auscultation: normoactive bowel sounds Palpation: soft; Negative for tender, guarding, rigid, hernia, mass, pulsatile mass or rebound tenderness present Back/Spine no CVA tenderness General Back: Negative for CVA tenderness Cervical Spine: Negative for cervical spine tenderness Thoracic Spine / Upper Back: thoracic spinal tenderness Coccyx: other Extremity full ROM General Extremety ED: Yes other findings; Negative for edema or tenderness General Extremity: other findings; Negative for edema Neuro CN's II-XII intact bilaterally, moves all extremities, no sensory deficits noted and gait normal Sensorium / Orientation: alert, oriented to person, oriented to place and oriented to time; Negative for orientation impaired, confused, lethargic or stuporous Psych mental status grossly normal and thought process normal Appearance: Negative for unkempt Attitude: No agitated Mood & Affect: Negative for depressed, anxious or tearful Skin General Skin Exam: Negative for jaundice or pallor Trauma: Negative for abrasion MDM MDM MDM Narrative Medical decision making narrative: 21-year-old female Ab0. Currently 15 weeks . Has had multiple abdominal visits for nausea vomiting and crampy abdominal pain. She is a very benign exam at this time. I do not think she will need any imaging. She will be treated with IV Zofran for nausea. A liter normal saline. Will attempt a p.o. fluid challenge. Do a urinalysis. Clinically she has no signs of obstruction. She has had her gallbladder resected. There is no signs of this being appendicitis. Therefore parental diagnosis would include viral syndrome. She denies any marijuana use or history of cyclic vomiting syndrome. UTI is a possibility. It could be nausea associated with . Repeat exam is benign. Patient is doing well at 8:05 AM. Treated his constipation. Outpatient follow-up with [facility]. Return if worse. Again she had a very benign abdominal exam at this time. Clinically this is nonobstruction. Lab Data Attestation: I reviewed the patient's lab results. Lab results narrative: Urinalysis is negative. Patient requested imaging. I explained to her clini madison I had a very very low suspicion that this was a bowel obstruction. I do not think it is at all. She still wanted imaging. The all our radiology technicians came over spoke to her they explained to her they cannot completely shield the unborn fetus. She deferred the x-rays. She will be discharged to home. Patient also had positive heart tones per nursing. Labs: Laboratory Results - last 24 hr 08/29/22 07:36 Urine Color Yellow Urine Clarity Clear Urine pH 6.0 Ur Specific [place] 1.020 Urine Protein Negative Urine Glucose (UA) Normal Urine Ketones Negative Urine Occult Blood Negative Urine Nitrite Negative Urine Bilirubin Negative Urine Urobilinogen Normal Ur Leukocyte Esterase Negative Urine RBC 0 SEEN Urine WBC 0 SEEN Ur Squamous Epith Cells 0-5 SEEN Urine Bacteria 0 SEEN Urine Mucus 0 SEEN Discharge Plan Triage Chief Complaint: Abd Pain ED Provider: Cooper Fernandez Dx/Rx/DC Orders Clinical Impression: Nausea & vomiting, First trimester , History of IBS Instructions: ED Abdominal Pain Unkn Cause Fem, ED Constipation (Adult), ED Vomiting (Adult) Prescriptions: No Action ascorbic acid (vitamin C) 250 mg tablet 250 mg PO DAILY hydroxyzine HCl 10 mg tablet 10 mg PO TID PRN (Reason: Itching) docusate sodium 100 mg capsule 100 mg PO BID PRN (Reason: constipation) nystatin [Nyamyc] 100,000 unit/gram powder 100,000 gm topical PRN PRN (Reason: Itching) Label Comments: apply 1 APPLICATION topically if needed for rash triamterene-hydrochlorothiazid 37.5-25 mg capsule 1 cap PO DAILY (DME) Bilateral knee high (10-20) compression stockings See Rx Instructions .Route .MEDSUPPLY Qty: 2 0RF Rx Instructions: As directed ondansetron 4 mg tablet,disintegrating 4 mg PO TID PRN (Reason: nausea and vomiting) Qty: 90 3RF dimenhydrinate [Driminate] 50 mg tablet 50 mg PO TID PRN (Reason: dizziness or vertigo) Qty: 90 3RF loratadine 10 mg tablet 10 mg PO DAILY PRN (Reason: Headache/sinus congestion) Qty: 30 4RF meclizine 25 mg tablet 25 mg PO TID PRN (Reason: dizziness) Qty: 90 3RF ferrous sulfate 325 MG tablet 325 mg PO DAILY ergocalciferol (vitamin D2) 50,000 UNIT capsule 50,000 unit PO QWEEK Primary Care Provider: Christoph Gann Referrals: Elvia Tucker DO [Med Staff - Active Staff] - 3-5 Days if not improving Christoph Gann DO [Primary Care Provider] - 3-5 Days if not improving Activity Restrictions/Additional Instructions: Your home nausea medication as needed. Plenty of fluids. Fruits, vegetables and fiber for the constipation. Also prune juice. Follow-up with your [facility] or your primary care provider if not improving. Disposition Disposition: Home, Self Care
[2022-08-29] MEDS: 0.9% Normal Saline 1,000 ML 1000 ML IV (07:05)
[2022-08-29 07:44] LABS: Bacteria 0 SEEN /hpf (None Seen); Mucous, Urine 0 SEEN /hpf (<or=2+); Red Blood Cells-Urine 0 SEEN /hpf (0-5); White Blood Cells 0 SEEN /hpf (0-5)
[2022-08-29 07:48] LABS: Glucose, Dipstick Normal (Normal); Ketone-Dipstick Negative (Negative); Leukocyte Esterase-Dipstick Negative /ul (Negative); Nitrite-Dipstick Negative (Negative); Occult Blood-Urine Negative /ul (Negative); Protein-Dipstick Negative (Negative); Urine Bilirubin Dipstick Negative (Negative); Urine Urobilinogen Normal (Normal)
[2022-08-29 07:55] LABS: Color, Urine Yellow (Yellow); Urine Clarity Clear (Clear)
[2022-08-29 07:58] LABS: Squamous Epithelial Cells - UA 0-5 SEEN /hpf (5-10)
[2022-08-29 08:20] VITALS: RESP 16
== END 2022-08-29 08:21 | disposition home or self-care (01) ==
PROVIDERS: Emergency Provider Emergency Medicine; PCP Student in an Organized Health Care Education/Training Program; Visit Provider Emergency Medicine
DX: O26.892 Other specified pregnancy related conditions, second trimester (principal); F41.9 Anxiety disorder, unspecified; Z3A.15 15 weeks gestation of pregnancy; O99.612 Diseases of the digestive system complicating pregnancy, second trimester; R11.2 Nausea with vomiting, unspecified; R19.7 Diarrhea, unspecified; O99.342 Other mental disorders complicating pregnancy, second trimester
CPT/HCPCS: J2405; 81001; 96360; 99283; J7030

== ENCOUNTER → 2022-09-14 | Outpatient (CLI) | payer MEDICAID, SELFPAY ==
[2022-09-14 10:58] LABS: Absolute Lymphocyte Count 2.96 X10^3/uL (0.83-4.51); Basophil# 0.04 X10^3/uL; Basophil% 0.4 % (0-1); Eosinophils% 0.9 % (0-5); Hemoglobin 11.8 g/dL (12.0-15.0); Lymphocyte # 2.96 X10^3/ul (0.83-4.51); Lymphocyte % 27.8 % (19-41); Mean Corp Hgb Conc 32.8 g/dL (32-36); Mean Corpuscular Hgb 26.4 pg (27.0-32.0); Mean Corpuscular Volume 80.5 fL (81-99); Mean Platelet Vol. 10.8 fl (6.2-12.0); Monocyte# 0.53 X10^3/uL; NRBC Flagged by Analyzer 0 % (0-5); Neutrophil # 6.98 X10^3/uL (2.7-7.7); Neutrophil % 65.5 % (47-70); Platelet Count 283 K/mm3 (150-450); RBC Distribution Width CV 16.1 % (11.6-14.6); RBC Distribution Width SD 47.1 fl (35.1-43.9); RET-HE 29.5 pg (30-35); Red Blood Count 4.47 M/mm3 (4.2-5.4); Reticulocyte Count 1.21 % (0.5-1.5); White Blood Count 10.7 K/mm3 (4.4-11.0)
[2022-09-14 11:15] LABS: Erythrocyte Sedimentation Rate 13 mm/hr (0-30)
[2022-09-14 11:38] LABS: ALB/GLOB Ratio 0.8 RATIO (0.9-2.4); AST(SGOT) 13 U/L (15-37); Alanine Aminotransfer ALT/SGPT 14 U/L (13-56); Albumin, Serum 3.1 g/dL (3.2-5.0); Alkaline Phosphatase 79 U/L (45-117); Anion Gap 9 (5-15); BUN 7 mg/dL (7-18); Calcium,Total 8.4 mg/dL (8.5-10.1); Chloride 110 mmol/L (98-107); Creatinine, Serum 0.44 mg/dL (0.55-1.02); EST Glomerular Filtration Rate 188 mL/min (>60); Est Glom Filt Rate - Afr Amer 228 mL/min (>60); Ferritin 28 ng/mL (8-252); Globulin 3.7 g/dL (2.2-4.2); Glucose 90 mg/dL (74-106); Iron 54 ug/dL (50-170); Iron Binding Capacity,Total 441 ug/dL (250-450); LDH 147 U/L (84-246); PERCENT IRON SATURATION 12.2 % (15.0-55.0); Potassium 3.3 mmol/L (3.5-5.1); Protein, Total 6.8 g/dL (6.4-8.2); Sodium Level 141 mmol/L (136-145)
[2022-09-17 13:07] LABS: Anti-Centromere B Ab <0.2 AI (0.0-0.9); Anti-Chromatin <0.2 AI (0.0-0.9); Anti-Jo <0.2 AI (0.0-0.9); Anti-Scleroderma-70 AB <0.2 AI (0.0-0.9); RNP Ab <0.2 AI (0.0-0.9); SJOGREN'S Anti-SS-A test 0.2 AI (0.0-0.9); SJOGREN'S Anti-SS-B test < 0.2 AI (0.0-0.9); Smith Ab <0.2 AI (0.0-0.9)
[2022-09-17 13:54] LABS: Anti-dsDNA Ab <1 IU/mL (0-9)
[2022-09-17 15:08] LABS: Endomysial Antibody IgA Negative (Negative)
[2022-09-17 15:51] LABS: Immunoglobulin A 100 mg/dL (87-352); t-Transglutaminase IgA <2 U/mL (0-3)
[2022-09-19 09:56] LABS: Calprotectin, Stool 127 ug/g (0-120)
[2022-09-21 05:07] LABS: Albumin 3.4 g/dL (2.9-4.4); Alpha-1-Globulins 0.3 g/dL (0.0-0.4); Alpha-2-Globulins 0.8 g/dL (0.4-1.0); Cytoplasmic Ab (C-ANCA) <1:20 titer (Neg:<1:20); Gamma Globulin 0.7 g/dL (0.4-1.8); Immunoglobulin A 105 mg/dL (87-352); Immunoglobulin E 4 IU/mL (6-495); Immunoglobulin G 955 mg/dL (586-1602); Immunoglobulin M 57 mg/dL (26-217); PROEL- TOTAL PROTEIN 6.3 g/dL (6.0-8.5)
[2022-09-21 20:16] LABS: Perinuclear Ab (P-ANCA) <1:20 titer (Neg:<1:20)
== END | disposition home or self-care (01) ==
PROVIDERS: Internal Medicine Medical Oncology; PCP Student in an Organized Health Care Education/Training Program; Referring Provider Internal Medicine Gastroenterology; Visit Provider Internal Medicine Gastroenterology
DX: O99.019 Anemia complicating pregnancy, unspecified trimester (principal); R19.7 Diarrhea, unspecified; K95.89 Other complications of other bariatric procedure; D50.8 Other iron deficiency anemias; D50.9 Iron deficiency anemia, unspecified
CPT/HCPCS: 36415; 80053; 82728; 82784; 82785; 83516; 83540; 83550; 83615; 83630; 83993; 84165; 85025; 85045; 85652; 86140; 86225; 86235; 86255; 86256; 86334

== ENCOUNTER → 2022-09-28 | Outpatient (CLI) | payer MEDICAID, SELFPAY ==
[2022-09-28 12:00] LABS: Hematocrit 36.2 % (37-47); Hemoglobin 11.6 g/dL (12.0-15.0); Mean Corpuscular Hgb 26.4 pg (27.0-32.0); Mean Corpuscular Volume 82.5 fL (81-99); Mean Platelet Vol. 10.8 fl (6.2-12.0); Platelet Count 308 K/mm3 (150-450); RBC Distribution Width CV 15.9 % (11.6-14.6); RBC Distribution Width SD 48.2 fl (35.1-43.9); Red Blood Count 4.39 M/mm3 (4.2-5.4); White Blood Count 8.5 K/mm3 (4.4-11.0)
[2022-09-28 12:38] LABS: ALB/GLOB Ratio 0.7 RATIO (0.9-2.4); AST(SGOT) 8 U/L (15-37); Alanine Aminotransfer ALT/SGPT 10 U/L (13-56); Alkaline Phosphatase 90 U/L (45-117); Anion Gap 8 (5-15); BUN 7 mg/dL (7-18); BUN/Creat Ratio 13.1 RATIO (10-20); Calcium,Total 8.7 mg/dL (8.5-10.1); Chloride 107 mmol/L (98-107); Creatinine, Serum 0.53 mg/dL (0.55-1.02); EST Glomerular Filtration Rate 149 mL/min (>60); Est Glom Filt Rate - Afr Amer 181 mL/min (>60); Globulin 4.1 g/dL (2.2-4.2); Glucose 76 mg/dL (74-106); Potassium 3.7 mmol/L (3.5-5.1); Protein, Total 7.1 g/dL (6.4-8.2); Sodium Level 138 mmol/L (136-145)
== END | disposition home or self-care (01) ==
LOC: WOBLAB 11:27
PROVIDERS: PCP Student in an Organized Health Care Education/Training Program; Visit Provider Student in an Organized Health Care Education/Training Program
DX: Z34.81 Encounter for supervision of other normal pregnancy, first trimester (principal)
CPT/HCPCS: 36415; 80053; 85027

== ENCOUNTER → 2022-10-15 | Outpatient (CLI) | payer MEDICAID, SELFPAY ==
[2022-10-15 14:32] LABS: Erythrocyte Sedimentation Rate 11 mm/hr (0-30)
[2022-10-15 14:33] LABS: Absolute Lymphocyte Count 2.69 X10^3/uL (0.83-4.51); Absolute Neutrophil Count 8.9 X10^3/uL (2.0-7.7); Basophil# 0.06 X10^3/uL; Basophil% 0.5 % (0-1); Eosinophil# 0.09 X10^3/uL; Eosinophils% 0.7 % (0-5); Hematocrit 36.4 % (37-47); Hemoglobin 11.5 g/dL (12.0-15.0); Lymphocyte # 2.69 X10^3/ul (0.83-4.51); Lymphocyte % 21.6 % (19-41); Mean Corp Hgb Conc 31.6 g/dL (32-36); Mean Corpuscular Hgb 26.4 pg (27.0-32.0); Mean Corpuscular Volume 83.5 fL (81-99); Mean Platelet Vol. 11.1 fl (6.2-12.0); Monocyte# 0.67 X10^3/uL; Monocyte% 5.4 % (0-10); NRBC Flagged by Analyzer 0 % (0-5); Neutrophil # 8.88 X10^3/uL (2.7-7.7); Neutrophil % 71.5 % (47-70); Platelet Count 300 K/mm3 (150-450); RBC Distribution Width CV 15.6 % (11.6-14.6); RBC Distribution Width SD 47.4 fl (35.1-43.9); Red Blood Count 4.36 M/mm3 (4.2-5.4); White Blood Count 12.4 K/mm3 (4.4-11.0)
[2022-10-15 14:59] LABS: ALB/GLOB Ratio 0.7 RATIO (0.9-2.4); AST(SGOT) 10 U/L (15-37); Alanine Aminotransfer ALT/SGPT 11 U/L (13-56); Albumin, Serum 2.7 g/dL (3.2-5.0); Alkaline Phosphatase 97 U/L (45-117); Anion Gap 6 (5-15); BUN 9 mg/dL (7-18); BUN/Creat Ratio 17.8 RATIO (10-20); CRP 8.33 mg/L (0.0-3.0); Calcium,Total 8.5 mg/dL (8.5-10.1); Chloride 106 mmol/L (98-107); Creatinine, Serum 0.51 mg/dL (0.55-1.02); EST Glomerular Filtration Rate 158 mL/min (>60); Est Glom Filt Rate - Afr Amer 192 mL/min (>60); Glucose 70 mg/dL (74-106); Potassium 4.1 mmol/L (3.5-5.1); Protein, Total 6.7 g/dL (6.4-8.2); Sodium Level 137 mmol/L (136-145)
== END | disposition home or self-care (01) ==
LOC: LAB 13:38
PROVIDERS: PCP Student in an Organized Health Care Education/Training Program; Referring Provider Internal Medicine Gastroenterology; Visit Provider Internal Medicine Gastroenterology
DX: K95.89 Other complications of other bariatric procedure (principal); D50.8 Other iron deficiency anemias; K59.00 Constipation, unspecified
CPT/HCPCS: 36415; 80053; 85025; 85652; 86140

== ENCOUNTER 2022-11-02 17:50 | Outpatient (CLI) | payer MEDICAID, SELFPAY ==
[2022-11-02 18:20] VITALS: TEMP 37
[2022-11-02 18:44] LABS: Color, Urine Yellow (Yellow); Glucose, Dipstick Normal (Normal); Ketone-Dipstick Negative (Negative); Leukocyte Esterase-Dipstick 25 /ul (Negative); Nitrite-Dipstick Negative (Negative); Occult Blood-Urine Negative /ul (Negative); Protein-Dipstick Negative (Negative); Urine Bilirubin Dipstick Negative (Negative); Urine Clarity Clear (Clear); Urine Urobilinogen Normal (Normal); Urine pH 6.5 (5.0 - 8.0)
[2022-11-02] MEDS: Lactated Ringers 1,000 ML 999 ML IV (19:00)
[2022-11-02 19:07] LABS: ROM Internal Control Test YES-OK TO RESULT pt. (Internal QC); ROM Patient Test Negative (Negative)
--- NOTE | 2022-11-02 19:49 | PCM.PN.OB ---
Subjective Subjective at 24/3 weeks presenting with increased discharge over the last couple days. Denies vaginal or vulvar itching burning or odor. Reported irregular cramping, not tolerable. Reports movement. Denies headache or vision changes, chest pain or shortness of breath, nausea or vomiting, diarrhea constipation, fevers or chills. Objective Data Objective Data Vital Signs: Weight: 107.048 kg Lab / Micro Data Attestation: I reviewed the patient's lab results. Labs: Laboratory Results - last 24 hr 11/02/22 18:10: Vag Amniotic Fld Detect Negative 11/02/22 18:15: Urine Color Yellow, Urine Clarity Clear, Urine pH 6.5, Ur Specific [place] 1.010, Urine Protein Negative, Urine Glucose (UA) Normal, Urine Ketones Negative, Urine Occult Blood Negative, Urine Nitrite Negative, Urine Bilirubin Negative, Urine Urobilinogen Normal, Ur Leukocyte Esterase 25 H Physical Exam Const alert, oriented x3 and no apparent distress General Appearance: cooperative Resp normal respiratory effort GI soft to palpation, non-tender and non-distended Inspection: gravid Narrative: cl/th/hi Back/Spine normal ROM Extremity full ROM and no pedal edema Neuro moves all extremities, no focal motor deficits and no sensory deficits noted Psych mental status grossly normal and affect normal NST FHR Rate Baby A Baseline: 145 Uterine Activity:: quiet Assessment & Plan (1) : PLAN: at 24/3 weeks presenting with increasing vaginal discharge and irregular cramping. Urinalysis negative, ROM negative. Cervix closed. Patient not ruptured and not in labor. With increased discharge and irregular crampy feeling, will treat empirically for bacterial vaginosis. Patient does have a history of this several times in the past. IV fluid hydrated, feeling improved with hydration. All questions answered. Patient feels comfortable with plan and discharge home. Labor precautions reviewed. Discharged home in stable condition.
== END 2022-11-02 20:06 | disposition home or self-care (01) ==
LOC: WPOUT 17:51 → WP 17:55
PROVIDERS: PCP Student in an Organized Health Care Education/Training Program; Referring Provider Student in an Organized Health Care Education/Training Program; Visit Provider Student in an Organized Health Care Education/Training Program
DX: O99.891 Other specified diseases and conditions complicating pregnancy (principal); N89.8 Other specified noninflammatory disorders of vagina; Z3A.24 24 weeks gestation of pregnancy
CPT/HCPCS: 96360; 59050; 81002; 84112; 87086; 87088; 99221; J7120; G0378

== ENCOUNTER → 2022-11-06 | Outpatient (CLI) | payer MEDICAID, SELFPAY ==
[2022-11-06 14:09] LABS: Absolute Lymphocyte Count 2.72 X10^3/uL (0.83-4.51); Absolute Neutrophil Count 8.3 X10^3/uL (2.0-7.7); Basophil# 0.04 X10^3/uL; Basophil% 0.3 % (0-1); Eosinophil# 0.13 X10^3/uL; Eosinophils% 1.1 % (0-5); Hematocrit 34.7 % (37-47); Lymphocyte # 2.72 X10^3/ul (0.83-4.51); Lymphocyte % 22.8 % (19-41); Mean Corp Hgb Conc 31.7 g/dL (32-36); Mean Corpuscular Hgb 25.9 pg (27.0-32.0); Mean Corpuscular Volume 81.6 fL (81-99); Monocyte# 0.65 X10^3/uL; Monocyte% 5.5 % (0-10); NRBC Flagged by Analyzer 0 % (0-5); Neutrophil # 8.32 X10^3/uL (2.7-7.7); Neutrophil % 69.9 % (47-70); Platelet Count 282 K/mm3 (150-450); RBC Distribution Width SD 44.5 fl (35.1-43.9); Red Blood Count 4.25 M/mm3 (4.2-5.4); White Blood Count 11.9 K/mm3 (4.4-11.0)
[2022-11-06 14:36] LABS: Hemoglobin A1c 4.9 % (3.8-5.6)
[2022-11-06 16:03] LABS: Syphilis Antibodies Non-reactive
== END | disposition home or self-care (01) ==
LOC: WOBLAB 13:44
PROVIDERS: PCP Student in an Organized Health Care Education/Training Program; Visit Provider Student in an Organized Health Care Education/Training Program
DX: Z34.82 Encounter for supervision of other normal pregnancy, second trimester (principal)
CPT/HCPCS: 36415; 83036; 85025; 86780

== ENCOUNTER 2022-12-01 11:45 | Outpatient (CLI) | payer MEDICAID, SELFPAY ==
[2022-12-01 11:52] VITALS: BMI 45.1
[2022-12-01 12:08] VITALS: BP 110/60; PULSE 101; TEMP 37.4; O2SAT 97
--- NOTE | 2022-12-02 08:08 | PCM.PN.OB ---
Subjective Subjective at 28/4 weeks presenting on 12/01/2022 with decreased movement. Patient was then feeling movement while in triage. NST reactive. Discharged home with kick counts. Reported chronic headache, unchanged from her baseline. Has been referred to neurology in the past during this . Has appointment this week in office with primary OB and MFM for growth restriction. Objective Data Objective Data Vital Signs: Vital Signs Temp Pulse BP Pulse Ox 99.3 F H 101 H 110/60 97 12/01/22 12:08 12/01/22 12:08 12/01/22 12:08 12/01/22 12:08 Weight: 112.037 kg Body Mass Index (BMI) 45.1 NST FHR Rate Baby A Baseline: 145 Variability:: Moderate Accelerations:: 10 x 10 Decelerations:: None (one drop in HR during nurse repositioning of patient. artifact due to this.) NST Reactive:: Yes Uterine Activity:: quiet
== END 2022-12-01 13:05 | disposition home or self-care (01) ==
LOC: WPOUT 11:47 → WP 11:50
PROVIDERS: PCP Student in an Organized Health Care Education/Training Program; Visit Provider Student in an Organized Health Care Education/Training Program
DX: O36.8130 Decreased fetal movements, third trimester, not applicable or unspecified (principal); Z3A.28 28 weeks gestation of pregnancy
CPT/HCPCS: 59025; 59050; 99221; G0378

== ENCOUNTER → 2022-12-04 | Outpatient (CLI) | payer MEDICAID, SELFPAY ==
[2022-12-04 17:23] LABS: Vitamin B12 205 pg/mL (211-911); Vitamin D,25 Hydroxy 21.3 ng/mL
[2022-12-04 17:31] LABS: Ferritin 8 ng/mL (8-252)
== END | disposition home or self-care (01) ==
LOC: WOBLAB 16:16
PROVIDERS: PCP Student in an Organized Health Care Education/Training Program; Visit Provider Student in an Organized Health Care Education/Training Program
DX: O36.8130 Decreased fetal movements, third trimester, not applicable or unspecified (principal)
CPT/HCPCS: 36415; 82306; 82607; 82728; 82746

== ENCOUNTER 2022-12-12 11:35 | Outpatient (CLI) | payer MEDICAID, SELFPAY ==
[2022-12-12 11:49] VITALS: BMI 44.6
[2022-12-12 11:53] VITALS: BP 111/58; PULSE 87
[2022-12-12] MEDS: Ondansetron 4 MG/2 ML Vial IV (12:45)
[2022-12-12] MEDS: Lactated Ringers 1,000 ML 999 ML IV ×2 (12:45→14:04)
[2022-12-12 12:51] LABS: Hematocrit 31.6 % (37-47); Mean Corp Hgb Conc 31.6 g/dL (32-36); Mean Corpuscular Hgb 24.4 pg (27.0-32.0); Mean Corpuscular Volume 77.1 fL (81-99); Mean Platelet Vol. 11.1 fl (6.2-12.0); Platelet Count 277 K/mm3 (150-450); RBC Distribution Width CV 14.5 % (11.6-14.6); White Blood Count 11.7 K/mm3 (4.4-11.0)
[2022-12-12 13:01] LABS: Anion Gap 6 (5-15); BUN 5 mg/dL (7-18); BUN/Creat Ratio 12.9 RATIO (10-20); Calcium,Total 8.3 mg/dL (8.5-10.1); Chloride 111 mmol/L (98-107); Creatinine, Serum 0.39 mg/dL (0.55-1.02); EST Glomerular Filtration Rate 215 mL/min (>60); Est Glom Filt Rate - Afr Amer 260 mL/min (>60); Estimated Creatinine Clearance 175.92 ml/min; Glucose 77 mg/dL (74-106); Potassium 3.7 mmol/L (3.5-5.1); Sodium Level 138 mmol/L (136-145)
[2022-12-12] MEDS: Loperamide 2 MG Capsule 4 MG PO (14:26)
[2022-12-12 14:29] VITALS: BP 113/56; PULSE 88
--- NOTE | 2022-12-13 08:32 | OB.TRI.HP_ITS ---
HPI - General General Date of Service: 12/12/22 HPI Narrative DARYA DEWITT, is a 22 F who presents with diarrhea PFSH [facility] Medical History (Updated 11/02/22 @ 19:[address] Elvia Tucker, DO) Anemia Arthritis Bipolar 2 disorder Bone fracture Diarrhea Frequent headaches Gastrointestinal problem Generalized anxiety disorder GERD (gastroesophageal reflux disease) H/O emotional problems Hearing problem History of PCOS Hypoglycemia IBS (irritable bowel syndrome) OCD (obsessive compulsive disorder) PCOS (polycystic ovarian syndrome) PTSD (post-traumatic stress disorder) Seasonal allergies Sleep apnea UTI (urinary tract infection) Vision problems Vitamin deficiency Home Medications ergocalciferol (vitamin D2) 1,250 mcg (50,000 unit) capsule 50,000 unit PO QWEEK 07/06/20 [History Last Taken Unknown] ascorbic acid (vitamin C) 250 mg tablet 250 mg PO DAILY 11/16/21 [History Last Taken Unknown] docusate sodium 100 mg capsule 100 mg PO BID PRN constipation 11/16/21 [History Last Taken Unknown] hydroxyzine HCl 10 mg tablet 10 mg PO TID PRN Anxiety 11/16/21 [History Last Taken Unknown] nystatin 100,000 unit/gram topical powder (Nyamyc) 100,000 gm topical PRN PRN Itching 01/26/22 [History Last Taken Unknown] Bilateral knee high (10-20) compression stockings #2 ea 06/19/22 [Rx Last Taken Unknown] dimenhydrinate 50 mg tablet (Driminate) 50 mg PO TID PRN dizziness or vertigo #90 tabs 06/19/22 [Rx Last Taken Unknown] loratadine 10 mg tablet 10 mg PO DAILY PRN Headache/sinus congestion #30 tabs 06/19/22 [Rx Last Taken Unknown] meclizine 25 mg tablet 25 mg PO TID PRN dizziness #90 tabs 06/19/22 [Rx Last Taken Unknown] ondansetron 4 mg disintegrating tablet 4 mg PO TID PRN nausea and vomiting #90 tabs 06/19/22 [Rx Last Taken Unknown] ferrous sulfate 325 mg (65 mg iron) tablet 325 mg PO DAILY #30 tabs 10/15/22 [Rx Last Taken Unknown] pantoprazole 40 mg tablet,delayed release (Protonix) 40 mg PO DAILY #90 tabs 11/06/22 [Rx Last Taken Unknown] Allergy/AdvReac Type Severity Reaction Status Date / Time adhesive tape Allergy Intermediate Rash Verified 07/30/22 22:18 NSAIDS (Non-Steroidal Allergy Bleeding Verified 07/30/22 22:18 Anti-Inflamma Family History Mother Alcohol abuse Anemia Arthritis Father Alcohol abuse Grandmother Anemia Arthritis History of blood transfusion Hypertension Kidney disease Sister Asthma Seizures Grandfather Arthritis Depression Diabetes Surgical History H/O bariatric surgery History of ankle surgery Hx of cholecystectomy Hx of tonsillectomy Social History Smoking Status: Never smoker second hand exposure: No alcohol intake: current alcohol intake frequency: holidays/special occasions only substance use type: does not use what type of physical activity do you participate in: other isac/latter day: Latter Day seatbelt use: always NST FHR Rate Baby A Baseline: 120 Variability:: Moderate Accelerations:: 10 x 10 Decelerations:: None NST Reactive:: Yes Uterine Activity:: Quiet Assessment & Plan (1) : PLAN: Called by nursing the patient arrived to triage with diarrhea and mild nausea. Given orders for CBC, BMP, 1 L LR bolus, and Zofran. Patient to take Imodium at home and declined taken further Imodium here. Called back by nursing that bolus was complete and patient felt improved gave order for second bolus of 1 L LR and to discharge home. Educated nurse to educate patient about precautions going home
== END 2022-12-12 15:10 | disposition home or self-care (01) ==
LOC: WPOUT 11:42 → WP 11:42
PROVIDERS: PCP Student in an Organized Health Care Education/Training Program; Referring Provider Obstetrics & Gynecology; Visit Provider Obstetrics & Gynecology
DX: O99.891 Other specified diseases and conditions complicating pregnancy (principal); R19.7 Diarrhea, unspecified; Z3A.00 Weeks of gestation of pregnancy not specified; R11.0 Nausea; O99.840 Bariatric surgery status complicating pregnancy, unspecified trimester
CPT/HCPCS: 96374; 96361; 36415; 59025; 59050; 80048; 85027; 87086; 87088; 99221; J7120; G0378; J2405

== ENCOUNTER 2022-12-19 11:59 | Outpatient (CLI) | payer MEDICAID, SELFPAY ==
[2022-12-19 12:23] VITALS: BP 136/69; PULSE 105; RESP 16; TEMP 36.6
[2022-12-19] MEDS: 0.9% NaCl Peripheral Flush Adult/Peds IV (12:25)
[2022-12-19] MEDS: 0.9% NaCl IVPB Med Flush (250 mL) 15 ML IV (12:28)
[2022-12-19] MEDS: Cyanocobalamin (B12) 1,000 MCG/ML Vial 1000 MCG IM (13:07)
[2022-12-19 13:11] VITALS: BP 107/63; PULSE 100
== END 2022-12-19 12:00 | disposition home or self-care (01) ==
LOC: MEDOUTP 12:00
PROVIDERS: PCP Student in an Organized Health Care Education/Training Program; Referring Provider Obstetrics & Gynecology; Visit Provider Obstetrics & Gynecology
DX: E61.1 Iron deficiency (principal); D51.9 Vitamin B12 deficiency anemia, unspecified
CPT/HCPCS: 96365; 96372; J1756; J7050; A4216; J3420

== ENCOUNTER → 2023-01-04 | Outpatient (CLI) | payer MEDICAID, SELFPAY | END | disposition home or self-care (01) | LOC: LABSPEC 14:46 | PROVIDERS: PCP Student in an Organized Health Care Education/Training Program; Visit Provider Student in an Organized Health Care Education/Training Program | DX: N39.0 Urinary tract infection, site not specified (principal) | CPT/HCPCS: 87086 ==

== ENCOUNTER 2023-01-26 21:10 | Outpatient (CLI) | payer MEDICAID, SELFPAY ==
[2023-01-26 21:25] VITALS: BP 117/60; PULSE 90; TEMP 36.7
[2023-01-26 22:16] VITALS: BMI 46.6
[2023-01-26 22:22] VITALS: PULSE 85; O2SAT 96
[2023-01-26 22:30] LABS: ROM Internal Control Test YES-OK TO RESULT pt. (Internal QC); ROM Patient Test Negative (Negative); Record Kit Lot#, ROM+ K1374
--- NOTE | 2023-01-26 23:36 | OB.TRI.NOTE ---
HPI - General HPI Narrative DARYA DEWITT, is a 22 F who presents Maternal Data Information Final DANIELLA: 02[birth year] Gestational age: 36&4 PFSH PFSH Medical History (Updated 01/26/23 @ 23:[address] Bright Kramer MD) Anemia Arthritis Bipolar 2 disorder Bone fracture Diarrhea Frequent headaches Gastrointestinal problem Generalized anxiety disorder GERD (gastroesophageal reflux disease) H/O emotional problems Hearing problem History of PCOS Hypoglycemia IBS (irritable bowel syndrome) OCD (obsessive compulsive disorder) PCOS (polycystic ovarian syndrome) PTSD (post-traumatic stress disorder) Seasonal allergies Sleep apnea UTI (urinary tract infection) Vision problems Vitamin deficiency Home Medications ergocalciferol (vitamin D2) 1,250 mcg (50,000 unit) capsule 50,000 unit PO QWEEK 07/06/20 [History Last Taken 01/23/23] hydroxyzine HCl 10 mg tablet 10 mg PO TID PRN Anxiety 11/16/21 [History Last Taken 01/25/23] nystatin 100,000 unit/gram topical powder (Nyamyc) 100,000 gm topical PRN PRN Itching 01/26/22 [History Last Taken Unknown] Bilateral knee high (10-20) compression stockings #2 ea 06/19/22 [Rx Last Taken Unknown] loratadine 10 mg tablet 10 mg PO DAILY PRN Headache/sinus congestion #30 tabs 06/19/22 [Rx Last Taken 01/25/23] meclizine 25 mg tablet 25 mg PO TID PRN dizziness #90 tabs 06/19/22 [Rx Last Taken 01/25/23] ondansetron 4 mg disintegrating tablet 4 mg PO TID PRN nausea and vomiting #90 tabs 06/19/22 [Rx Last Taken 01/26/23] ferrous sulfate 325 mg (65 mg iron) tablet 325 mg PO DAILY #30 tabs 10/15/22 [Rx Last Taken 01/25/23] pantoprazole 40 mg tablet,delayed release (Protonix) 40 mg PO DAILY #90 tabs 11/06/22 [Rx Last Taken 01/25/23] Allergy/AdvReac Type Severity Reaction Status Date / Time adhesive tape Allergy Intermediate Rash Verified 07/30/22 22:18 NSAIDS (Non-Steroidal Allergy Bleeding Verified 07/30/22 22:18 Anti-Inflamma Family History Mother Alcohol abuse Anemia Arthritis Father Alcohol abuse Grandmother Anemia Arthritis History of blood transfusion Hypertension Kidney disease Sister Asthma Seizures Grandfather Arthritis Depression Diabetes Surgical History H/O bariatric surgery History of ankle surgery Hx of cholecystectomy Hx of tonsillectomy Social History Smoking Status: Never smoker second hand exposure: No alcohol intake: current alcohol intake frequency: holidays/special occasions only substance use type: does not use what type of physical activity do you participate in: other isac/scientology: Orthodox seatbelt use: always NST FHR Rate Baby A Baseline: 125 Variability:: Moderate Accelerations:: 15 x 15 Decelerations:: None Uterine Activity:: occasional Assessment & Plan (1) Threatened premature labor: PLAN: reactive NST
== END 2023-01-26 22:50 | disposition home or self-care (01) ==
LOC: WPOUT 21:20 → WP 21:21
PROVIDERS: Obstetrics & Gynecology; PCP Student in an Organized Health Care Education/Training Program; Referring Provider Obstetrics & Gynecology; Visit Provider Obstetrics & Gynecology
DX: O60.00 Preterm labor without delivery, unspecified trimester (principal); Z3A.00 Weeks of gestation of pregnancy not specified
CPT/HCPCS: 59025; 59050; 84112; 99221; G0378

== ENCOUNTER 2023-02-02 16:30 | Outpatient (CLI) | payer MEDICAID, SELFPAY ==
[2023-02-02 16:42] VITALS: BP 115/66; TEMP 36.1
[2023-02-02 16:43] VITALS: PULSE 94; O2SAT 97
[2023-02-02 16:59] VITALS: BMI 46.0
--- NOTE | 2023-02-03 06:20 | OB.TRI.NOTE ---
HPI - General General Date of Admission: 02/02/23 Date of Service: 02/02/23 Chief Complaint: DFM HPI Narrative DARYA DEWITT, is a 22 F who presents with DFM. at 37w4d with DFM. No other complaints. [facility] Medical History (Updated 02/03/23 @ 06:[address] Stefany Yu, DO) Anemia Arthritis Bipolar 2 disorder Bone fracture Diarrhea Frequent headaches Gastrointestinal problem Generalized anxiety disorder GERD (gastroesophageal reflux disease) H/O emotional problems Hearing problem History of PCOS Hypoglycemia IBS (irritable bowel syndrome) OCD (obsessive compulsive disorder) PCOS (polycystic ovarian syndrome) PTSD (post-traumatic stress disorder) Seasonal allergies Sleep apnea UTI (urinary tract infection) Vision problems Vitamin deficiency Home Medications ergocalciferol (vitamin D2) 1,250 mcg (50,000 unit) capsule 50,000 unit PO QWEEK low levels 07/06/20 [History Last Taken 01/26/23 21:00] hydroxyzine HCl 10 mg tablet 50 mg PO BID PRN PRN Anxiety 11/16/21 [History Last Taken 02/01/23 21:00] nystatin 100,000 unit/gram topical powder (Nyamyc) 100,000 gm topical PRN PRN Itching 01/26/22 [History Last Taken Unknown] Bilateral knee high (10-20) compression stockings #2 ea 06/19/22 [Rx Last Taken Unknown] loratadine 10 mg tablet 10 mg PO DAILY PRN Headache/sinus congestion #30 tabs 06/19/22 [Rx Last Taken 01/31/23 21:00] meclizine 25 mg tablet 25 mg PO TID PRN dizziness #90 tabs 06/19/22 [Rx Last Taken 01/25/23] ondansetron 4 mg disintegrating tablet 4 mg PO TID PRN nausea and vomiting #90 tabs 06/19/22 [Rx Last Taken 02/02/23 06:00] famotidine 20 mg tablet (Pepcid) 20 mg PO DAILY 02/02/23 [History Last Taken Unknown] ferrous sulfate 325 mg (65 mg iron) tablet 325 mg PO DAILY anemia 02/02/23 [History Last Taken 02/01/23 21:00] pantoprazole 40 mg tablet,delayed release (Protonix) 40 mg PO DAILY ulcer prevention 02/02/23 [History Last Taken 02/01/23 06:00] venlafaxine 25 mg tablet 25 mg PO BID 02/02/23 [History Last Taken 02/01/23 21:00] Allergy/AdvReac Type Severity Reaction Status Date / Time adhesive tape Allergy Intermediate Rash Verified 07/30/22 22:18 NSAIDS (Non-Steroidal Allergy Bleeding Verified 07/30/22 22:18 Anti-Inflamma Family History Mother Alcohol abuse Anemia Arthritis Father Alcohol abuse Grandmother Anemia Arthritis History of blood transfusion Hypertension Kidney disease Sister Asthma Seizures Grandfather Arthritis Depression Diabetes Surgical History H/O bariatric surgery History of ankle surgery Hx of cholecystectomy Hx of tonsillectomy Social History Smoking Status: Never smoker second hand exposure: No alcohol intake: current alcohol intake frequency: holidays/special occasions only substance use type: does not use what type of physical activity do you participate in: other isac/gnosticist: Worship seatbelt use: always NST FHR Rate Baby A Baseline: 120 Variability:: Moderate Accelerations:: 15 x 15 Decelerations:: None NST Reactive:: Yes Uterine Activity:: No regular ctx's Assessment & Plan (1) 37 weeks gestation of : (2) Decreased movement: PLAN: NST reactive. D/c home
== END 2023-02-02 18:00 | disposition home or self-care (01) ==
LOC: WPOUT 16:41 → WP 16:41
PROVIDERS: PCP Student in an Organized Health Care Education/Training Program; Referring Provider Obstetrics & Gynecology; Visit Provider Obstetrics & Gynecology
DX: O36.8130 Decreased fetal movements, third trimester, not applicable or unspecified (principal); Z3A.37 37 weeks gestation of pregnancy; Z79.899 Other long term (current) drug therapy
CPT/HCPCS: 59025; 59050; 99221; G0378

== ENCOUNTER 2023-02-08 19:50 | Outpatient (CLI) | payer MEDICAID, SELFPAY ==
[2023-02-08 20:19] VITALS: BP 117/59; PULSE 86
[2023-02-08 20:21] VITALS: BP 117/59; PULSE 86; TEMP 36.7; O2SAT 98
[2023-02-08 20:37] VITALS: BMI 47.5
[2023-02-08 21:26] LABS: ROM Internal Control Test YES-OK TO RESULT pt. (Internal QC); ROM Patient Test Negative (Negative); Record Kit Lot#, ROM+ K1374
[2023-02-09] VITALS (7 sets, daily range): BP systolic 104–144; BP diastolic 54–68; PULSE 68–82; O2SAT 97
--- NOTE | 2023-02-10 04:09 | OB.TRI.NOTE ---
HPI - General General Date of Admission: 02/08/23 Date of Service: 02/08/23 HPI Narrative DARYA DEWITT, is a 22 F who presents at 38w3d for possible rupture of membranes. [facility] Medical History (Updated 02/10/23 @ 04:15 by Georgina Ruiz CNM) Anemia Arthritis Bipolar 2 disorder Bone fracture Diarrhea Frequent headaches Gastrointestinal problem Generalized anxiety disorder GERD (gastroesophageal reflux disease) H/O emotional problems Hearing problem History of PCOS Hypoglycemia IBS (irritable bowel syndrome) OCD (obsessive compulsive disorder) PCOS (polycystic ovarian syndrome) PTSD (post-traumatic stress disorder) Seasonal allergies Sleep apnea UTI (urinary tract infection) Vision problems Vitamin deficiency Home Medications ergocalciferol (vitamin D2) 1,250 mcg (50,000 unit) capsule 50,000 unit PO QWEEK low levels 07/06/20 [History Last Taken 02/02/23] hydroxyzine HCl 10 mg tablet 50 mg PO BID PRN PRN Anxiety 11/16/21 [History Last Taken 02/07/23 20:00 50 mg] nystatin 100,000 unit/gram topical powder (Nyamyc) 100,000 gm topical PRN PRN Itching 01/26/22 [History Last Taken Unknown] Bilateral knee high (10-20) compression stockings #2 ea 06/19/22 [Rx Last Taken Unknown] loratadine 10 mg tablet 10 mg PO DAILY PRN Headache/sinus congestion #30 tabs 06/19/22 [Rx Last Taken 01/31/23 21:00] meclizine 25 mg tablet 25 mg PO TID PRN dizziness #90 tabs 06/19/22 [Rx Last Taken 01/25/23] ondansetron 4 mg disintegrating tablet 4 mg PO TID PRN nausea and vomiting #90 tabs 06/19/22 [Rx Last Taken 02/08/23 12:00 4 mg] famotidine 20 mg tablet (Pepcid) 20 mg PO DAILY 02/02/23 [History Last Taken 02/07/23] ferrous sulfate 325 mg (65 mg iron) tablet 325 mg PO DAILY anemia 02/02/23 [History Last Taken 02/07/23 20:00 325 mg] pantoprazole 40 mg tablet,delayed release (Protonix) 40 mg PO DAILY ulcer prevention 02/02/23 [History Last Taken 02/07/23 20:42 40 mg] venlafaxine 25 mg tablet 25 mg PO BID 02/02/23 [History Last Taken 02/08/23 12:00 25 mg] Allergy/AdvReac Type Severity Reaction Status Date / Time adhesive tape Allergy Intermediate Rash Verified 02/08/23 20:39 NSAIDS (Non-Steroidal Allergy Bleeding Verified 02/08/23 20:39 Anti-Inflamma Family History Mother Alcohol abuse Anemia Arthritis Father Alcohol abuse Grandmother Anemia Arthritis History of blood transfusion Hypertension Kidney disease Sister Asthma Seizures Grandfather Arthritis Depression Diabetes Surgical History H/O bariatric surgery History of ankle surgery Hx of cholecystectomy Hx of tonsillectomy Social History Smoking Status: Never smoker second hand exposure: No alcohol intake: current alcohol intake frequency: holidays/special occasions only substance use type: does not use what type of physical activity do you participate in: other isac/episcopalian: Hindu seatbelt use: always NST FHR Rate Baby A Baseline: 125 Variability:: Moderate Accelerations:: 15 x 15 Decelerations:: None NST Reactive:: Yes Uterine Activity:: None Assessment & Plan (1) 38 weeks gestation of : (2) Vaginal discharge: PLAN: Plan 1) ROM plus negative 2) D/C negative
== END 2023-02-08 22:05 | disposition home or self-care (01) ==
LOC: WPOUT 19:53 → WP 20:02
PROVIDERS: PCP Student in an Organized Health Care Education/Training Program; Referring Provider Advanced Practice Midwife; Visit Provider Advanced Practice Midwife
DX: O99.891 Other specified diseases and conditions complicating pregnancy (principal); N89.8 Other specified noninflammatory disorders of vagina; Z3A.38 38 weeks gestation of pregnancy
CPT/HCPCS: 59025; 59050; 76815; 84112; 99221; G0378

== ENCOUNTER 2023-02-13 07:00 | Observation (INO) | payer MEDICAID, SELFPAY ==
[2023-02-13] VITALS (17 sets, daily range): BP systolic 102–127; BP diastolic 55–73; PULSE 79–96; TEMP 36.3–37.2; O2SAT 95–97; BMI 48.1
[2023-02-13] MEDS: 0.9% Normal Saline Single 100 ML IV.SOLN. INTRA-UTER (08:26)
--- NOTE | 2023-02-13 08:59 | PCM.PN.BLA ---
Progress Note Vance bulb placed by DR. Kramer without incident and filled with 30 cc NS. Assessment & Plan Assessment/Plan (1) 39 weeks gestation of : (2) H/O emotional problems: (3) Bipolar 2 disorder: (4) Anxiety: (5) Iron deficiency anemia following bariatric surgery: (6) M?ni?re's disease: (7) Migraine headache without aura: PLAN: Plan Continue pitocin IV per policy Pain medications if indicated Anticipate
[2023-02-13 09:31] LABS: Bedside Glucose 72 mg/dL (74-106)
[2023-02-13] MEDS: Lactated Ringers 1,000 ML 50 ML IV (09:36)
[2023-02-13] MEDS: Oxytocin 15 Units/NS 250ml 15 UNITS/250 ML IV.SOLN 2 UNITS IV (09:52)
[2023-02-13 09:56] LABS: Absolute Lymphocyte Count 2.66 X10^3/uL (0.83-4.51); Absolute Neutrophil Count 7.4 X10^3/uL (2.0-7.7); Basophil# 0.05 X10^3/uL; Basophil% 0.5 % (0-1); Eosinophil# 0.08 X10^3/uL; Eosinophils% 0.7 % (0-5); Hematocrit 30.8 % (37-47); Lymphocyte # 2.66 X10^3/ul (0.83-4.51); Lymphocyte % 24.2 % (19-41); Mean Corp Hgb Conc 29.2 g/dL (32-36); Mean Corpuscular Hgb 21.7 pg (27.0-32.0); Mean Corpuscular Volume 74.2 fL (81-99); Mean Platelet Vol. 11.4 fl (6.2-12.0); Monocyte# 0.65 X10^3/uL; Monocyte% 5.9 % (0-10); NRBC Flagged by Analyzer 0 % (0-5); Neutrophil # 7.44 X10^3/uL (2.7-7.7); Neutrophil % 67.8 % (47-70); Platelet Count 263 K/mm3 (150-450); RBC Distribution Width CV 16.5 % (11.6-14.6); Red Blood Count 4.15 M/mm3 (4.2-5.4)
[2023-02-13 10:38] LABS: Syphilis Antibodies Non-reactive
[2023-02-13] MEDS: LACTATED RINGERS 500 ML 999 ML IV (13:02)
--- NOTE | 2023-02-13 13:03 | PCM.PN.BLA ---
Progress Note Patient seen at bedside. Continues to have increasing back (sciatica) pain. Thinking of getting epidural. Assessment & Plan Assessment/Plan (1) 39 weeks gestation of : (2) Iron deficiency anemia following bariatric surgery: (3) M?ni?re's disease: (4) Migraine headache without aura: PLAN: Plan CE- /-3- ballotable Cat. 1 tracing Continue Pitocin IV and increase per policy Epidural when indicated Anticipate
[2023-02-13 14:30] LABS: Bedside Glucose 83 mg/dL (74-106)
[2023-02-13 14:43] LABS: Bedside Glucose 75 mg/dL (74-106)
--- NOTE | 2023-02-13 15:30 | NURSING ---
Zoie Castle RN assumed care of pt at 1530.
[2023-02-13 18:36] LABS: Bedside Glucose 64 mg/dL (74-106)
--- NOTE | 2023-02-13 18:57 | PN.OBGYN_ITS ---
Subjective Subjective Patient seen at bedside. Several IV lines have infiltrated and/or became blown and had to be removed. Anesthesia as well as IV specialist in ED involved without success. Patient has had over 15 attempts without success. Patient very upset over situation. Initially wanted to leave AMA but discussed R/B to current induction of labor as well as need for IV access. PICC line suggested. Patient agrees to this and order placed. Dr. Marcelino updated on patient's status. Objective Data Objective Data Vital Signs: Vital Signs Temp Pulse BP Pulse Ox 99.0 F 83 107/56 L 96 02/13/23 14:08 02/13/23 17:33 02/13/23 17:33 02/13/23 14:09 Weight: 263 lb 3.711 oz Body Mass Index (BMI) 48.1 Intake & Output: Intake and Output for Last 24 Hours 02/11/23 02/12/23 02/13/23 23:59 23:59 23:59 Intake Total 594.16 / 594.16 Balance 594.16 / 594.16 Lab / Micro Data 02/13/23 09:37 Labs: Laboratory Results - last 24 hr 02/13/23 09:12: POC Glucose 72 L 02/13/23 09:37: WBC 11.0, RBC 4.15 L, Hgb 9.0 L, Hct 30.8 L, MCV 74.2 L, MCH 21.7 L, MCHC 29.2 L, RDW Std Deviation 44.0 H, RDW Coeff of Yu 16.5 H, Plt Count 263, MPV 11.4, Immature Gran % (Auto) 0.900, Neut % (Auto) 67.8, Lymph % ( Auto) 24.2, [place] % (Auto) 5.9, Eos % (Auto) 0.7, Baso % (Auto) 0.5, Absolute Neuts (auto) 7.4, Absolute Lymphs (auto) 2.66, Nucleated RBC % 0, Syphilis Total Ab Non-reactive, Blood Type O POSITIVE, Antibody Screen NEGATIVE 02/13/23 10:17: POC Glucose 83 02/13/23 14:15: POC Glucose 75 02/13/23 18:15: POC Glucose 64 L
--- NOTE | 2023-02-13 21:22 | PCM.PN.BLA ---
Progress Note Per nursing- PICC line is only able to be placed between the hours of 9 am- 9pm and staff is unavailable to come out tonight to place. Discussed above with patient as well as Dr. Marcelino. Decision made to send patient home and will bring her back in tomorrow morning at 10 am for induction. PICC line staff scheduled for 11:[address] on patient. Assessment & Plan Assessment/Plan (1) H/O emotional problems: (2) Bipolar 2 disorder: (3) Anxiety: (4) Gestational diabetes: (5) 39 weeks gestation of : (6) Iron deficiency anemia: (7) Obesity affecting : PLAN: Plan Will complete NST prior to discharge due to patient being off monitor for last several hours BS- within normal range Labor precautions and kick counts reviewed with patient and questions answered Patient and agrees with plan of care discussed D/C home with return to unit at 10 am tomorrow morning [facility] staff aware of plan of care
== END 2023-02-13 21:55 | disposition home or self-care (01) ==
PROVIDERS: Obstetrics & Gynecology; Admitting Provider Advanced Practice Midwife; PCP Student in an Organized Health Care Education/Training Program; Referring Provider Advanced Practice Midwife; Visit Provider Advanced Practice Midwife
DX: O99.343 Other mental disorders complicating pregnancy, third trimester (principal); F31.81 Bipolar II disorder; O24.419 Gestational diabetes mellitus in pregnancy, unspecified control; D50.9 Iron deficiency anemia, unspecified; F41.9 Anxiety disorder, unspecified; G43.009 Migraine without aura, not intractable, without status migrainosus; O99.843 Bariatric surgery status complicating pregnancy, third trimester; O99.013 Anemia complicating pregnancy, third trimester; O99.353 Diseases of the nervous system complicating pregnancy, third trimester; O99.213 Obesity complicating pregnancy, third trimester; Z3A.39 39 weeks gestation of pregnancy
CPT/HCPCS: 96365; 96366 ×3; 59025; 59050; 82962; 85025; 86780; 86850; 86900; 86901; J7120

== ENCOUNTER 2023-02-14 10:10 | Inpatient (IN) | payer MEDICAID, SELFPAY ==
[2023-02-14] VITALS (48 sets, daily range): BP systolic 94–171; BP diastolic 48–85; PULSE 69–134; RESP 16; TEMP 35.9–36.7; O2SAT 80–100; BMI 47.7
[2023-02-14] MEDS: Lactated Ringers 1,000 ML 50 ML IV (11:25)
[2023-02-14] MEDS: LACTATED RINGERS 500 ML 999 ML IV ×3 (11:27→15:50)
[2023-02-14 11:52] LABS: Bedside Glucose 139 mg/dL (74-106)
[2023-02-14 12:03] LABS: Absolute Lymphocyte Count 0.64 X10^3/uL (0.83-4.51); Absolute Neutrophil Count 5.5 X10^3/uL (2.0-7.7); Basophil# 0.02 X10^3/uL; Basophil% 0.3 % (0-1); Eosinophil# 0.03 X10^3/uL; Eosinophils% 0.5 % (0-5); Hematocrit 52.2 % (37-47); Hemoglobin 15.2 g/dL (12.0-15.0); Lymphocyte # 0.64 X10^3/ul (0.83-4.51); Lymphocyte % 10.1 % (19-41); Mean Corp Hgb Conc 29.1 g/dL (32-36); Mean Corpuscular Hgb 21.6 pg (27.0-32.0); Mean Corpuscular Volume 74.3 fL (81-99); Mean Platelet Vol. 10.4 fl (6.2-12.0); Monocyte# 0.17 X10^3/uL; Monocyte% 2.7 % (0-10); NRBC Flagged by Analyzer 0 % (0-5); Neutrophil # 5.46 X10^3/uL (2.7-7.7); Neutrophil % 86.1 % (47-70); Platelet Count 120 K/mm3 (150-450); RBC Distribution Width CV 18.6 % (11.6-14.6); RBC Distribution Width SD 44.2 fl (35.1-43.9); Red Blood Count 7.03 M/mm3 (4.2-5.4); White Blood Count 6.3 K/mm3 (4.4-11.0)
[2023-02-14] MEDS: Oxytocin 15 Units/NS 250ml 15 UNITS/250 ML IV.SOLN 2 UNITS IV (12:06)
[2023-02-14] MEDS: fentaNYL-bupivacaine (epidural) 100 ML BAG EPIDURAL (12:45)
--- NOTE | 2023-02-14 13:11 | PCM.HP.OB ---
HPI - General General Date of Admission: 02/14/23 HPI Narrative DARYA DEWITT, is a 22 F who presents for induction. Maternal Data Information Final DANIELLA: [birth year] Gestational age: 39&2 PFSH PFSH Medical History Anemia Anemia Anxiety Arthritis Bipolar 2 disorder Bone fracture Depression Diarrhea FH: cholecystectomy Frequent headaches Gastrointestinal problem Generalized anxiety disorder GERD (gastroesophageal reflux disease) Gestational diabetes Gestational diabetes H/O emotional problems Hearing problem History of PCOS Hypoglycemia IBS (irritable bowel syndrome) Meniere disease OCD (obsessive compulsive disorder) PCOS (polycystic ovarian syndrome) depression PTSD (post-traumatic stress disorder) Recurrent UTI (urinary tract infection) Seasonal allergies Sleep apnea Sleep apnea Suicidal ideation Thyroid disorder Trauma UTI (urinary tract infection) Vision problems Vitamin deficiency Home Medications ergocalciferol (vitamin D2) 1,250 mcg (50,000 unit) capsule 50,000 unit PO QWEEK low levels 07/06/20 [History Last Taken 02/09/23] hydroxyzine HCl 10 mg tablet 50 mg PO BID PRN PRN Anxiety 11/16/21 [History Last Taken 02/12/23] nystatin 100,000 unit/gram topical powder (Nyamyc) 100,000 gm topical PRN PRN Itching 01/26/22 [History Last Taken 02/04/23] Bilateral knee high (10-20) compression stockings #2 ea 06/19/22 [Rx Last Taken Unknown] loratadine 10 mg tablet 10 mg PO DAILY PRN Headache/sinus congestion #30 tabs 06/19/22 [Rx Last Taken 02/06/23] meclizine 25 mg tablet 25 mg PO TID PRN dizziness #90 tabs 06/19/22 [Rx Last Taken 02/03/23] ondansetron 4 mg disintegrating tablet 4 mg PO TID PRN nausea and vomiting #90 tabs 06/19/22 [Rx Last Taken 02/12/23] famotidine 20 mg tablet (Pepcid) 20 mg PO DAILY Heartburn 02/02/23 [History Last Taken 02/09/23] ferrous sulfate 325 mg (65 mg iron) tablet 325 mg PO DAILY anemia 02/02/23 [History Last Taken 02/09/23] pantoprazole 40 mg tablet,delayed release (Protonix) 40 mg PO DAILY ulcer prevention 02/02/23 [History Last Taken 02/07/23 20:42 40 mg] venlafaxine 25 mg tablet 25 mg PO BID bipolar 02/02/23 [History Last Taken 02/12/23] Allergy/AdvReac Type Severity Reaction Status Date / Time adhesive tape Allergy Intermediate Rash Verified 02/08/23 20:39 NSAIDS (Non-Steroidal Allergy Bleeding Verified 02/08/23 20:39 Anti-Inflamma Family History Mother Alcohol abuse Anemia Arthritis Father Alcohol abuse Grandmother Anemia Arthritis History of blood transfusion Hypertension Kidney disease Sister Asthma Seizures Grandfather Arthritis Depression Diabetes Surgical History Gastric bypass status for obesity H/O bariatric surgery History of ankle surgery History of ankle surgery History of tonsillectomy and adenoidectomy Hx of cholecystectomy Hx of tonsillectomy Social History Smoking Status: Never smoker second hand exposure: No alcohol intake: current alcohol intake frequency: holidays/special occasions only substance use type: does not use what type of physical activity do you participate in: other isac/latter day: Yazdanism seatbelt use: always History Elective abortions Hx Para 1 Spontaneous abortions Hx # Term Pregnancies Ectopic pregnancies Hx # Pregnancies Multiple births # of living children NST FHR Rate Baby A Baseline: 140 Variability:: Moderate Accelerations:: 15 x 15 Decelerations:: None Uterine Activity:: Irregular Vital Signs Vital Signs Vital Signs: 02/14/23 10:34 02/14/23 10:34 02/14/23 10:34 Temperature Temperature Source Pulse Rate 125 H Blood Pressure 139/75 H BP Systolic 139 BP Diastolic 75 Pulse Ox 80 02/14/23 10:35 02/14/23 10:35 02/14/23 10:34 Temperature Temperature Source Temporal Pulse Rate 134 H Blood Pressure BP Systolic BP Diastolic Pulse Ox 98 02/14/23 10:34 02/14/23 10:40 02/14/23 10:40 Temperature 98.0 F Temperature Source Pulse Rate 122 H Blood Pressure BP Systolic BP Diastolic Pulse Ox 98 02/14/23 12:22 02/14/23 12:23 02/14/23 12:23 Temperature Temperature Source Pulse Rate 108 H Blood Pressure 124/73 H BP Systolic 124 BP Diastolic 73 Pulse Ox 99 02/14/23 12:27 02/14/23 12:27 02/14/23 12:28 Temperature Temperature Source Pulse Rate 108 H 107 H Blood Pressure 125/76 H BP Systolic 125 BP Diastolic 76 Pulse Ox 02/14/23 12:28 02/14/23 12:33 02/14/23 12:33 Temperature Temperature Source Pulse Rate 95 Blood Pressure 128/81 H BP Systolic 128 BP Diastolic 81 Pulse Ox 99 02/14/23 12:33 02/14/23 12:37 02/14/23 12:37 Temperature Temperature Source Pulse Rate 104 H Blood Pressure 128/76 H BP Systolic 128 BP Diastolic 76 Pulse Ox 99 02/14/23 12:38 02/14/23 12:38 02/14/23 12:42 Temperature Temperature Source Pulse Rate 102 H Blood Pressure 115/54 L BP Systolic 115 BP Diastolic 54 Pulse Ox 99 02/14/23 12:42 02/14/23 12:46 02/14/23 12:46 Temperature Temperature Source Pulse Rate 121 H 127 H Blood Pressure BP Systolic BP Diastolic Pulse Ox 98 02/14/23 12:47 02/14/23 12:47 02/14/23 12:51 Temperature Temperature Source Pulse Rate 130 H 111 H Blood Pressure 94/48 L BP Systolic 94 BP Diastolic 48 Pulse Ox 02/14/23 12:51 02/14/23 12:53 02/14/23 12:53 Temperature Temperature Source Pulse Rate 120 H Blood Pressure 111/69 BP Systolic 111 BP Diastolic 69 Pulse Ox 95 02/14/23 12:53 02/14/23 12:56 02/14/23 12:56 Temperature Temperature Source Pulse Rate 124 H Blood Pressure BP Systolic BP Diastolic Pulse Ox 93 96 02/14/23 12:57 02/14/23 12:57 02/14/23 13:01 Temperature Temperature Source Pulse Rate 120 H 116 H Blood Pressure 96/54 L BP Systolic 96 BP Diastolic 54 Pulse Ox 02/14/23 13:01 02/14/23 13:03 02/14/23 13:03 Temperature Temperature Source Pulse Rate 120 H Blood Pressure 104/56 L BP Systolic 104 BP Diastolic 56 Pulse Ox 98 02/14/23 13:06 02/14/23 13:06 02/14/23 13:07 Temperature Temperature Source Pulse Rate 112 H Blood Pressure 104/57 L BP Systolic 104 BP Diastolic 57 Pulse Ox 98 02/14/23 13:07 Temperature Temperature Source Pulse Rate 114 H Blood Pressure BP Systolic BP Diastolic Pulse Ox Weight Weight: 261 lb Body Mass Index (BMI) 47.7 Physical Exam Const alert, oriented x3 and no apparent distress Chest inspection of chest normal GI soft to palpation, non-tender and non-distended Inspection: gravid external exam normal Narrative: cvx - 5/70/-3, AROM thin meconium fluid Labs Labs Labs: Blood Type O POSITIVE Antibody Screen NEGATIVE Hct 52.2 % (37-47) H Hgb 15.2 g/dL (12.0-15.0) H Syphilis Total Ab Non-reactive VZV IgG Antibody 169 index (Immune >165) Rubella IgG Antibody Reactive (Nonreactive) Hep Bs Antigen Non-Reactive (Nonreactive) Chlamydia DNA (NITHIN) Negative (Negative) Neisseria gonorrhoeae DNA (NITHIN) Negative (Negative) HIV 1&2 Antibody Non-Reactive (Nonreactive) Miscellaneous Test Assessment & Plan (1) Obesity affecting : QUALIFIERS: Trimester: third trimester Obesity type affecting : unspecified obesity Qualified Code(s): O99.213 - Obesity complicating , third trimester COMMENT: @ 39&2 (2) Gestational diabetes: QUALIFIERS: Gestational diabetes mellitus control: diet-controlled Trimester: third trimester Qualified Code(s): O24.410 - Gestational diabetes mellitus in , diet controlled (3) 39 weeks gestation of : PLAN: Plan Admit to L&D Induction - s/p AROM & on pitocin GDM - continue protocol GBS negative Pain - epidural EFW - less than 4500g, patient with adequate pelvis
[2023-02-14 13:40] LABS: Syphilis Antibodies Non-reactive
[2023-02-14 13:55] LABS: Bedside Glucose 84 mg/dL (74-106)
[2023-02-14 13:55] LABS: Bedside Glucose 76 mg/dL (74-106)
--- NOTE | 2023-02-14 14:00 | CASEMGMT ---
Social Work Labor and Delivery OB-ERT called for this patient. This selling underwriter, and CONTROLLED ATMOSPHERIC FURNACE BRAZER Bharti Laws, responded for support to father of baby (FOB) Eliazar. Social work sat with FOB while MOB and infant being medically evaluated. FOB calm, but talkative, stating to be doing okay and on a normal day to talk a lot. FOB shared he has a 4 year old son (Dixon) and a 2 year old son (Gene), with unborn infant being the first girl. MOB is the mother to the 2 year old and soon to be delivered girl. Supportive listening and reflection offered. Stayed with FOB until FOB able to be with the MOB. Plan: Social work to follow. Noted SDOH trigger for this MOB, so will plan to follow up after delivery. -ASHU Fagan, CONTROLLED ATMOSPHERIC FURNACE BRAZER
--- NOTE | 2023-02-14 14:07 | PCM.PN.OB ---
Subjective Subjective Called by OB unit for deceleration. Objective Data Objective Data Vital Signs: Vital Signs Temp Pulse BP Pulse Ox 98.0 F 75 144/69 H 86 02/14/23 10:34 02/14/23 13:42 02/14/23 13:42 02/14/23 13:41 Weight: 261 lb Body Mass Index (BMI) 47.7 Intake & Output: Intake and Output for Last 24 Hours 02/12/23 02/13/23 02/14/23 23:59 23:59 23:59 Intake Total 501.67 / 501.67 Balance 501.67 / 501.67 Lab / Micro Data 02/14/23 11:30 Labs: Laboratory Results - last 24 hr 02/14/23 11:30: WBC 6.3, RBC 7.03 H, Hgb 15.2 H, Hct 52.2 H, MCV 74.3 L, MCH 21.6 L, MCHC 29.1 L, RDW Std Deviation 44.2 H, RDW Coeff of Yu 18.6 H, Plt Count 120 L, MPV 10.4, Immature Gran % (Auto) 0.300, Neut % (Auto) 86.1 H, Lymph % (Auto) 10.1 L, [place] % (Auto) 2.7, Eos % (Auto) 0.5, Baso % (Auto) 0.3, Absolute Neuts (auto) 5.5, Absolute Lymphs (auto) 0.64 L, Nucleated RBC % 0, Syphilis Total Ab Non-reactive 02/14/23 11:32: POC Glucose 139 H 02/14/23 12:49: POC Glucose 84 02/14/23 13:35: POC Glucose 76 Physical Exam Narrative: cvx - 5/70/-2, no palpable cord or part other than head Assessment & Plan (1) Obesity affecting : QUALIFIERS: Trimester: third trimester Obesity type affecting : unspecified obesity Qualified Code(s): O99.213 - Obesity complicating , third trimester COMMENT: @ 39&2 PLAN: Plan FHR improved to 130's as I was driving to . Patient is s/p a 5 minute deceleration that nadired in the 40's. Per report of patient & nursing staff patient has some SOB just prior to this. Patient reports feeling like it was a panic attack (her agrees). Plan for amnioinfusion and then will restart pitocin. Discussed if patient has another significant deceleration then would recommend a but at this time feel it is reasonable to continue with induction.
[2023-02-14] MEDS: Amnioinfusion- 0.9% NS 1,000 ML IV.SOLN. 1000 ML INTRA-UTER (14:15)
--- NOTE | 2023-02-14 16:19 | EX.PCM.OBRPT ---
Maternal Data Information Final DANIELLA: [birth year] Gestational age: 39&2 Vaginal Delivery Maternal Presentation Maternal Presentation: Medically Indicated Induction Type of Induction: Amniotomy Operative Information Date of Procedure: 02/14/23 Pre-Operative Diagnosis: Maternal obesity Post-Operative Diagnosis: Same Surgery / Procedure Performed: Spontaneous Vaginal Delivery Type of Anesthesia: Epidural Drain: Vance to straight drain Estimated Blood Loss: 300ml Findings Description of Procedure: Called by RN when patient had a 2nd prolonged deceleration. Instructed RN to take patient to OR. Upon my arrival to OR patient was C/C/+1. FHT's were in the 90's. Patient was prepped & draped. She pushed well to deliver the head. head gently guided to allow delivery of anterior and posterior shoulders. No excess traction placed on head. Body delivered and 3VC clamped & cut in delayed fashion. Placenta delivered with gentle traction and good uterine tone obtained. Presentation: SAMMI Amniotic Membrane Rupture Type: Artificial Amniotic Fluid Description: Lightly stained meconium Placental Delivery Description: Expressed Placenta Disposition: [facility] Specimen(s) Removed: Placenta Cord Vessel Description: 3 Vessels Cord Entanglement: Around neck x 1, loose Nuchal Cord Compression: With compression A Gender: Female (1 minute): 8 (5 minute): 9 Delayed Cord Clamping: Yes Post Vaginal Delivery Medications Given After Delivery: IV Pitocin Episiotomy Description: None Laceration: None Complication Complications: None
--- NOTE | 2023-02-14 16:37 | CASEMGMT ---
Social Work Labor and Delivery This entry writer, along with Bharti GASTON, responded to OB-ERT (2nd one for this patient), for support to father of baby (FOB) Eliaazr. FOB appeared more distressed as compared to last OB-ERT, as evidenced by tense body language including facial features, and restlessness noted. FOB reports had made calls to family telling family that things had leveled out, and MOB's mom en route to hospital. Emotional support offered to FOB until decision made for infant to vaginally deliver in the area. SW remained close by to delivery area to ensure additional support not needed again. After delivery, FOB stepped outside of delivery room, needing to sit down. Encouraged FOB to breathe, and also got FOB something to drink. FOB able to say this time felt different than the first OB-ERT, and indicated having a harder time. FOB stated this delivery was the hardest experience for FOB thus far. Emotional support offered. After some time, FOB appeared relaxed and ready to see the baby again. Let FOB know that SW would be checking in on MOB, FOB and infant tomorrow sometime. Plan: SW to follow for assessment, provision of resources as indicated, SDOH screening, and support. -ASHU Fagan, VESSEL SCRAPPER HELPER
[2023-02-14] MEDS: Oxytocin 15 Units/NS 250ml 15 UNITS/250 ML IV.SOLN 83 UNITS IV (16:46)
[2023-02-14 16:57] LABS: AST(SGOT) 11 U/L (15-37); Alanine Aminotransfer ALT/SGPT 9 U/L (13-56); Creatinine, Serum 0.56 mg/dL (0.55-1.02); EST Glomerular Filtration Rate 141 mL/min (>60); Est Glom Filt Rate - Afr Amer 170 mL/min (>60); Estimated Creatinine Clearance 122.52 ml/min; Uric Acid 3.4 mg/dL (2.6-6.0)
[2023-02-14 17:51] LABS: Bedside Glucose 77 mg/dL (74-106)
[2023-02-14] MEDS: Acetaminophen 500 MG Tablet 1000 MG PO (19:26)
--- NOTE | 2023-02-14 21:03 | NURSING ---
Epidural cath removed, tip intact.
[2023-02-15 03:30] VITALS: BP 92/51; PULSE 66; RESP 18; TEMP 36.1; O2SAT 97
--- NOTE | 2023-02-15 03:45 | NURSING ---
Pt notes Picc Line site discomfort and soreness. No visible abnormal signs noted by RN. Denies shortness of breath and N/V. Pt asymptomatic.
[2023-02-15 06:07] LABS: Bedside Glucose 77 mg/dL (74-106)
[2023-02-15] MEDS: Acetaminophen 500 MG Tablet 1000 MG PO ×3 (06:10→20:33)
--- NOTE | 2023-02-15 07:26 | PCM.PROGNOTE ---
Subjective Subjective patient seen at bedside, doing well. Patient reports pain at PICC line site and pubic bone pain when walking. reports moderate lochia. Objective Data Objective Data Vital Signs: Vital Signs Temp Pulse Resp BP Pulse Ox O2 Del Method 97.0 F L 66 18 92/51 L 97 Room Air 02/15/23 03:30 02/15/23 03:30 02/15/23 03:30 02/15/23 03:30 02/15/23 03:30 02/15/23 03:30 Oxygen Delivery Method Room Air Weight: 118.388 kg Body Mass Index (BMI) 47.7 Intake & Output: Intake and Output for Last 24 Hours 02/13/23 02/14/23 02/15/23 23:59 23:59 23:59 Intake Total 2515.82 / 2515.82 Output Total 1200 / 1200 1000 / 1000 Balance 1315.82 / 1315.82 -1000 / -1000 Lab / Micro Data 02/14/23 11:30 02/14/23 16:20 Labs: Laboratory Results - last 24 hr 02/14/23 11:30: WBC 6.3, RBC 7.03 H, Hgb 15.2 H, Hct 52.2 H, MCV 74.3 L, MCH 21.6 L, MCHC 29.1 L, RDW Std Deviation 44.2 H, RDW Coeff of Yu 18.6 H, Plt Count 120 L, MPV 10.4, Immature Gran % (Auto) 0.300, Neut % (Auto) 86.1 H, Lymph % (Auto) 10.1 L, [place] % (Auto) 2.7, Eos % (Auto) 0.5, Baso % (Auto) 0.3, Absolute Neuts (auto) 5.5, Absolute Lymphs (auto) 0.64 L, Nucleated RBC % 0, Syphilis Total Ab Non-reactive 02/14/23 11:32: POC Glucose 139 H 02/14/23 12:49: POC Glucose 84 02/14/23 13:35: POC Glucose 76 02/14/23 16:20: Creatinine 0.56, Estim Creat Clear Calc 122.52, Est GFR (MDRD) Af Amer 170, Est GFR (MDRD) Non-Af 141, Uric Acid 3.4, AST 11 L, ALT 9 L 02/14/23 17:33: POC Glucose 77 02/15/23 05:47: POC Glucose 77 Physical Exam Narrative abd: soft non tender- fundus firm. PICC line site intact, no signs of infection or infilitration. Const alert and oriented x3 General Appearance: cooperative HEENT normocephalic Neck General: normal visual inspection GI soft to palpation and non-distended GI Narrative: Fundus firm Extremity normal to inspection and no calf tenderness Skin no rashes or lesions noted Neuro oriented x3 and CN's II-XII intact bilaterally Psych mental status grossly normal Assessment & Plan Assessment/Plan (1) Obesity affecting : QUALIFIERS: Trimester: third trimester Obesity type affecting : unspecified obesity Qualified Code(s): O99.213 - Obesity complicating , third trimester (2) Gestational diabetes: QUALIFIERS: Gestational diabetes mellitus control: diet-controlled Trimester: third trimester Qualified Code(s): O24.410 - Gestational diabetes mellitus in , diet controlled (3) H/O emotional problems: (4) Bipolar 2 disorder: (5) Anxiety: (6) Vaginal delivery: PLAN: Plan ppd#1 plan to dc PICC line today if bleeding remains stable routine care montior vs abdominal binder to wear low on pelvis to see if give relief for pubic bone pain
[2023-02-15 07:45] LABS: Vitamin B12 89 pg/mL (211-911)
[2023-02-15 09:45] VITALS: BP 111/48; PULSE 74; RESP 16; TEMP 36.5
[2023-02-15] MEDS: Rizatriptan Benzoate 10 MG Tablet PO (11:42)
[2023-02-15 12:00] VITALS: BP 112/45; PULSE 77; RESP 16; TEMP 36.5
--- NOTE | 2023-02-15 14:14 | CASEMGMT ---
Social Work Assessment Labor and Delivery Unit Patient Address:[address] [place] [address] Phone number: [phone] Date of Referral: 02/13/23 Time of Referral:? 1037 Referred By: Gayle Degroot Date of Intervention: ??02/15/23 Time of Intervention:? 1320 Reason for Referral:? Si, depression, anxiety, bipolar, FOB history of drug use, parents addicts History obtained from: medical records and mother of baby (MOB- Jennifer)?and father of baby (FOB- Eliazar Hurtado)? Household composition: Currently residing in the home are parents and their older son, Gene (1 year old) Patient's parent/guardian status: Parents have been together for 2 years. Parents met on [employer]. They found out they were two months after meeting each other, following that they got . MARIELLE denies abuse/ domestic violence. Medical History: This is second and delivery for MARIELLE. MARIELLE began her care with [facility] (where she delivered her first son), however she really wanted to deliver at [facility] so she transfered her care. Initially MARIELLE was going to be followed with [facility], however they felt as though her medical and mental health needs were beyond their scope of practice, and she finished her course with [facility]. MARIELLE had IUGR and gestational diabetes during . MARIELLE was an ROMAIN x2 during delivery. Ultimately MARIELLE was able to deliver baby girl, Tammy vaginally. Baby was born on 02/14 weighing 7lb and 3oz, her apgars were 8 and 9. MARIELLE is using formula to feed baby. Educational Status:MARIELLE states that she graduated from high school and did obtain her associates degree in art. FOB states that he has high school diploma. ? Financial Status: FOB is employed for [employer]. He started working there in November, he does not qualify for [employer] at this time. MOB is not employed. SDOH completed with MARIELLE. She indicated that they struggle financially and last week needed to go to a food pantry to help tie them over until FOB got paid again. MARIELLE states that they have several expenses that are necessary (child support, car payments, rent, etc.). MAKAYLA does not get paid if he is not working and the weather is a big factor with that. WHen he doesn't get paid they do not have resources to help supplement their needs. Supplies:??MOB states they have everything they need for baby including a car seat, safe sleep, clothes, diapers and wipes. Childcare/Caregiver(s):? MARIELLE states that she will be the primary caregiver to baby. MOB states that she does take a sleeping aid at bedtime. Sw discussed ABCs of safe sleep, and explained to MOB that she has to place baby back in designated safe sleep area before she goes back to sleep. MOB stated that she will always make sure to put baby back in bassinet because she does not like to co-sleep. FOB stated that he will also be home at night and can assist with feeds throughout the night. Transportation:?? MOB initially stated that they were having transportation difficulties earlier this year, but they bought a second vehicle because she needed to be able to get to all of her medical appointments during . Programs/Agencies Involved: ??MARIELLE states that she utilized [facility] in the past and she is receptive to getting connected again. MARIELLE is receiving mental health support through [facility] (Breanna Miller) and psychiatry. Children Services/Legal Issues:??? MARIELLE denies prior involvement with Children Services, no concerns warranting referral at this time. Behavioral Health Issues: ??Mental Health History:??FOB states that he has been diagnosed with PTSD, major depression and he is prescribed zoloft. Patient states that he is taking his medications consistently. MOB reports that she has been diagnosed with Bipolar 2, history of emotional problems, anxiety, depression and PTSD. MOB states that she is prescribed hydroxyzine. MARIELLE is connected to counseling supports and is talking to her counselor regularly. Airam completed Dania Depression screen with MARIELLE and her score was a 15. Airam explained to MARIELLE how this score is concerning and encouraged her to meet with her counselor weekly. MARIELLE stated that she was hospitalized in December of this year due to having suicidal thoughts with a plan to harm herself. She was admitted at [facility] where her medication got regulated. MOB states that that is the only and last time she has had SI. MARIELLE reports that her son is extremely high need. She experienced depression with him and to this day she struggles to rivera with him. Substance Use History:??MOB reports that she does not use drugs or drink alcohol. FOB states that he does have a substance use history positive for methamphetamine use and occasional THC. MAKAYLA states that he has been sober since August of 2020. MAKAYLA is active in probation and states that he has no desire to use any more. MAKAYLA reports that in 2019 he was found guilty of F4 grand theft. MAKAYLA states that he stole a car and is still in the process of paying back restitution fees. MAKAYLA went through treatment/ therapy at [facility]. Family History:?MARIELLE states that her parents have substance use history. MARIELLE states that while she was growing up her mom was an alcoholic, but does not drink any more. MARIELLE states that her father is currently a meth addict but he is not a part of her life at this time. Drug Screens: ?No urine screens observed in MOB chart. Family/Social Stressors:? MARIELLE states that the relationship that she has with her mother in law is a big cause of stress to her. MARIELLE states that her mother in law talks down to her and is degrading. MARIELLE states that she also struggles with her son and his needs. MARIELLE was encouraged to discuss these issues with her counselor and discuss appropriate coping skills. Support Systems: Parents report they have some family who are supportive, primarily maternal grandparents. Depression/Shaken Baby/Safe Sleeping: Sw educated parents on signs and symptoms of baby blues and depression. Sw explained to MARIELLE that she is more susceptible to experiencing one or both, including psychosis due to her history of Bipolar disorder. Parents were welcoming of the education. MARIELLE states that MAKAYLA is a big support person for her and she is thankful for already be connected to counseling. Sw also educated parents to never shake a baby and the ABCs of safe sleep. Parents expressed understanding. ?? ASSESSMENT:? Parents have mental health history, and are connected to beneficial community resources. MOB receptive to sw making referral to [facility]. Parents were very open during sw assessment. Parents appreciative of sw involvement and support. Parents would benefit from ongoing support provided by medical and network support specialist during hospitalization. PLAN:? Sw will make referral to [facility]. MOB and baby to be discharged tomorrow. ?No other services requested or indicated. Bharti Laws, CAR BODY INSPECTOR, COMSEC MANAGER
[2023-02-15] MEDS: Hydrocortisone 2.5% Crm 1 APPLIC TOPICAL (14:29)
[2023-02-15 17:07] VITALS: BP 102/55; PULSE 86; RESP 16; TEMP 36.6
[2023-02-15] MEDS: SimETHICONE 80 MG Chewable Tablet PO ×2 (19:04→19:06)
[2023-02-15 20:24] VITALS: BP 107/63; PULSE 80; RESP 18; TEMP 36.5; O2SAT 97
[2023-02-16 02:30] VITALS: BP 117/72; PULSE 69; RESP 16; TEMP 37; O2SAT 95
--- NOTE | 2023-02-16 06:26 | NURSING ---
RN discussed pain with pt. Pt rating pain 6/10 due to abdominal cramping. RN offered tylenol, encouraged use of heating pad, and to empty bladder frequently. Pt declined tylenol, use of heating pad, and stated, I have to pee really bad but don't want to get up. RN discussed importance of emptying her bladder.
[2023-02-16] MEDS: Acetaminophen 500 MG Tablet 1000 MG PO (06:47)
--- NOTE | 2023-02-16 06:55 | PCM.PROGNOTE ---
Subjective Subjective patient seen at bedside, doing well. Patient reports good pain control- but has cramping. lochia mild. reports feeling like she might be anemic. Objective Data Objective Data Vital Signs: Vital Signs Temp Pulse Resp BP Pulse Ox O2 Del Method 98.6 F 69 16 117/72 95 Room Air 02/16/23 02:30 02/16/23 02:30 02/16/23 02:30 02/16/23 02:30 02/16/23 02:30 02/16/23 02:30 Oxygen Delivery Method Room Air Weight: 118.388 kg Body Mass Index (BMI) 47.7 Intake & Output: Intake and Output for Last 24 Hours 02/14/23 02/15/23 02/16/23 23:59 23:59 23:59 Intake Total 2515.82 / 2515.82 Output Total 1200 / 1200 1000 / 1000 Balance 1315.82 / 1315.82 -1000 / -1000 Lab / Micro Data 02/14/23 11:30 02/14/23 16:20 Labs: Laboratory Results - last 24 hr 02/15/23 05:45: Vitamin B12 89 L Physical Exam Const alert and oriented x3 General Appearance: cooperative HEENT normocephalic Neck General: normal visual inspection GI soft to palpation and non-distended GI Narrative: Fundus firm Extremity normal to inspection and no calf tenderness Skin no rashes or lesions noted Neuro oriented x3 and CN's II-XII intact bilaterally Psych mental status grossly normal Assessment & Plan Assessment/Plan (1) Vaginal delivery: (2) Obesity affecting : QUALIFIERS: Trimester: third trimester Obesity type affecting : unspecified obesity Qualified Code(s): O99.213 - Obesity complicating , third trimester (3) Gestational diabetes: QUALIFIERS: Gestational diabetes mellitus control: diet-controlled Trimester: third trimester Qualified Code(s): O24.410 - Gestational diabetes mellitus in , diet controlled (4) Anxiety: (5) Bipolar 2 disorder: (6) H/O emotional problems: PLAN: Plan PPD#2 , Doing well Routine care pain mgmt ambulation remove PICC line today after CBC resulted check CBC pt reports wants NEXPLANON at 6 weeks PP
--- NOTE | 2023-02-16 07:05 | DCINST_ITS ---
Discharge Instructions Diet Discharge Diet: No restrictions Activity May resume sexual activity in: 6-8 weeks Dressing / Incision Call your doctor if you observe: Fever of 101 or Higher, Inability to urinate, Using more than 1 pad per hour and Uncontrolled pain Follow Up Care Please Follow Up With: Gertrude Singh MD When: 1-2 weeks post and again at 6 weeks post . [phone] Test Results: Test results from this visit will be discussed in further detail at your follow- up appointment, if applicable. Discharge Plan Admission Admit Date/Time: 02/14/23 10:10 Attending Provider: Bright Kramer Primary Care Provider: Christoph Gann Discharge Orders/Prescriptions Prescriptions: New acetaminophen 500 mg Tablet 1,000 mg PO Q6H PRN PRN (Reason: Pain 1-10 Or Fever) Qty: 0 0RF Continued hydroxyzine HCl 10 mg tablet 50 mg PO BID PRN PRN (Reason: Anxiety) nystatin [Nyamyc] 100,000 unit/gram powder 100,000 gm topical PRN PRN (Reason: Itching) Patient Comments: apply 1 APPLICATION topically if needed for rash ondansetron 4 mg tablet,disintegrating 4 mg PO TID PRN (Reason: nausea and vomiting) Qty: 90 3RF meclizine 25 mg tablet 25 mg PO TID PRN (Reason: dizziness) Qty: 90 3RF ergocalciferol (vitamin D2) 50,000 UNIT capsule 50,000 unit PO QWEEK famotidine [Pepcid] 20 mg Tablet 20 mg PO DAILY pantoprazole [Protonix] 40 mg tablet,delayed release (DR/EC) 40 mg PO DAILY ferrous sulfate 325 mg (65 mg iron) tablet 325 mg PO DAILY venlafaxine 25 mg Tablet 25 mg PO BID No Action (DME) Bilateral knee high (10-20) compression stockings See Rx Instructions .Route .MEDSUPPLY Qty: 2 0RF Rx Instructions: As directed loratadine 10 mg tablet 10 mg PO DAILY PRN (Reason: Headache/sinus congestion) Qty: 30 4RF Referrals / Follow Up: Christoph Gann DO [Primary Care Provider] - Disposition Disposition (needs filled in before D/C Order can be placed): Home, Self Care
[2023-02-16] MEDS: 0.9% Saline Lock 10 ML Syringe IV (08:04)
[2023-02-16 08:19] LABS: Absolute Lymphocyte Count 2.46 X10^3/uL (0.83-4.51); Absolute Neutrophil Count 7.9 X10^3/uL (2.0-7.7); Basophil# 0.06 X10^3/uL; Basophil% 0.5 % (0-1); Eosinophil# 0.29 X10^3/uL; Eosinophils% 2.6 % (0-5); Hematocrit 29.6 % (37-47); Hemoglobin 8.6 g/dL (12.0-15.0); Lymphocyte # 2.46 X10^3/ul (0.83-4.51); Lymphocyte % 21.7 % (19-41); Mean Corp Hgb Conc 29.1 g/dL (32-36); Mean Corpuscular Hgb 21.8 pg (27.0-32.0); Mean Corpuscular Volume 74.9 fL (81-99); Mean Platelet Vol. 11.1 fl (6.2-12.0); Monocyte# 0.59 X10^3/uL; Monocyte% 5.2 % (0-10); NRBC Flagged by Analyzer 0 % (0-5); Neutrophil # 7.86 X10^3/uL (2.7-7.7); Neutrophil % 69.4 % (47-70); Platelet Count 223 K/mm3 (150-450); RBC Distribution Width CV 16.7 % (11.6-14.6); RBC Distribution Width SD 45.2 fl (35.1-43.9); Red Blood Count 3.95 M/mm3 (4.2-5.4); White Blood Count 11.3 K/mm3 (4.4-11.0)
[2023-02-16 09:30] VITALS: BP 109/67; PULSE 87; RESP 18; TEMP 36.6
== END 2023-02-16 11:30 | disposition home or self-care (01) | DRG 560 ==
PROVIDERS: Obstetrics & Gynecology; Admitting Provider Obstetrics & Gynecology; PCP Student in an Organized Health Care Education/Training Program; Visit Provider Obstetrics & Gynecology
DX: O99.214 Obesity complicating childbirth (principal); Z37.0 Single live birth; E66.9 Obesity, unspecified; F31.81 Bipolar II disorder; O24.420 Gestational diabetes mellitus in childbirth, diet controlled; F41.0 Panic disorder [episodic paroxysmal anxiety]; Z3A.39 39 weeks gestation of pregnancy; O76 Abnormality in fetal heart rate and rhythm complicating labor and delivery; O99.344 Other mental disorders complicating childbirth; O77.0 Labor and delivery complicated by meconium in amniotic fluid; F41.1 Generalized anxiety disorder; O69.81X0 Labor and delivery complicated by cord around neck, without compression, not applicable or unspecified
CPT/HCPCS: 36569; 59025; 59050; 82565; 82607; 82652; 82962; 84450; 84460; 84550; 85025; 86780; 86850; 86900; 86901; 99221; J7030; J7120; A4216; G0378; J2405; J3490

== ENCOUNTER 2023-02-18 05:51 | Emergency (ER) | payer MEDICAID, SELFPAY ==
[2023-02-18 05:52] VITALS: BP 127/69; PULSE 75; RESP 16; TEMP 35.9; O2SAT 96; BMI 46.8
--- NOTE | 2023-02-18 06:51 | ED.RN ---
pt was not pleased that this nurse asked her to get out of the bed so that her baby --another pt--could be weighed.pt asvised that she could get back in the bed and the pt would not and would no longer answer questions reguarding the baby,her significant other answered.
[2023-02-18 06:57] VITALS: BP 127/69; PULSE 75; RESP 16; O2SAT 96
--- NOTE | 2023-02-18 06:57 | ED.VIS.FEGU ---
HPI HPI - Female History of Present Illness Chief Complaint: Female C/O Informant: patient and spouse/S.O. Narrative Narrative: Patient is a 22-year-old female who is a with past medical history of bipolar disorder. She underwent a vaginal delivery at 39 weeks gestation roughly 4 days ago. She states while she was in the hospital she was having lower abdominal pain slightly greatest on the right and she did voice this to the hospital team. She states that they felt there was no infectious process or no postdelivery complications and advised her that the pain will resolve with time. Patient states that has persisted over the past few days. She denies any dysuria and states that the vaginal discharge/bleeding status post vaginal delivery is actually improved from her first a few years ago. She also states that she will have intermittent chest pain but denies any family history of cardiac disease at a young age states it is not pleuritic in nature and denies any cough congestion fevers chills or shortness of breath. PFSH PFS Medical History Anemia Anemia Anxiety Arthritis Bipolar 2 disorder Bone fracture Depression Diarrhea FH: cholecystectomy Frequent headaches Gastrointestinal problem Generalized anxiety disorder GERD (gastroesophageal reflux disease) Gestational diabetes Gestational diabetes H/O emotional problems Hearing problem History of PCOS Hypoglycemia IBS (irritable bowel syndrome) Meniere disease OCD (obsessive compulsive disorder) PCOS (polycystic ovarian syndrome) depression PTSD (post-traumatic stress disorder) Recurrent UTI (urinary tract infection) Seasonal allergies Sleep apnea Sleep apnea Suicidal ideation Thyroid disorder Trauma UTI (urinary tract infection) Vision problems Vitamin deficiency Home Medications ergocalciferol (vitamin D2) 1,250 mcg (50,000 unit) capsule 50,000 unit PO QWEEK low levels 07/06/20 [History Last Taken 02/09/23] hydroxyzine HCl 10 mg tablet 50 mg PO BID PRN PRN Anxiety 11/16/21 [History Last Taken 02/12/23] nystatin 100,000 unit/gram topical powder (Nyamyc) 100,000 gm topical PRN PRN Itching 01/26/22 [History Last Taken 02/04/23] Bilateral knee high (10-20) compression stockings #2 ea 06/19/22 [Rx Last Taken Unknown] loratadine 10 mg tablet 10 mg PO DAILY PRN Headache/sinus congestion #30 tabs 06/19/22 [Rx Last Taken 02/06/23] meclizine 25 mg tablet 25 mg PO TID PRN dizziness #90 tabs 06/19/22 [Rx Last Taken 02/03/23] ondansetron 4 mg disintegrating tablet 4 mg PO TID PRN nausea and vomiting #90 tabs 06/19/22 [Rx Last Taken 02/12/23] famotidine 20 mg tablet (Pepcid) 20 mg PO DAILY Heartburn 02/02/23 [History Last Taken 02/09/23] ferrous sulfate 325 mg (65 mg iron) tablet 325 mg PO DAILY anemia 02/02/23 [History Last Taken 02/09/23] pantoprazole 40 mg tablet,delayed release (Protonix) 40 mg PO DAILY ulcer prevention 02/02/23 [History Last Taken 02/07/23 20:42 40 mg] venlafaxine 25 mg tablet 25 mg PO BID bipolar 02/02/23 [History Last Taken 02/12/23] acetaminophen 500 mg tablet 1,000 mg (2 x 500 mg) PO Q6H PRN PRN Pain 1-10 Or Fever #0 tabs 02/16/23 [Rx Last Taken Unknown] Allergy/AdvReac Type Severity Reaction Status Date / Time adhesive tape Allergy Intermediate Rash Verified 02/18/23 05:57 chlorhexidine Allergy Mild Rash Verified 02/18/23 05:57 [From ChloraPrep Clear] isopropyl alcohol Allergy Mild Rash Verified 02/18/23 05:57 [From ChloraPrep Clear] NSAIDS (Non-Steroidal AdvReac Bleeding Verified 02/18/23 05:57 Anti-Inflamma Family History Mother Alcohol abuse Anemia Arthritis Father Alcohol abuse Grandmother Anemia Arthritis History of blood transfusion Hypertension Kidney disease Sister Asthma Seizures Grandfather Arthritis Depression Diabetes Surgical History Gastric bypass status for obesity H/O bariatric surgery History of ankle surgery History of ankle surgery History of tonsillectomy and adenoidectomy Hx of cholecystectomy Hx of tonsillectomy Social History Smoking Status: Never smoker second hand exposure: No alcohol intake: current alcohol intake frequency: holidays/special occasions only substance use type: does not use what type of physical activity do you participate in: other isac/buddhist: Christianity seatbelt use: always ROS ROS ED Constitutional Constitutional ED: Denies chills or fever(s) ENT ENT ED: Denies rhinorrhea or sore throat Cardiovascular Cardiovascular: Reports chest pain; Denies palpitations or racing heartbeat Respiratory/Chest Respiratory/Chest: Denies cough or dyspnea Gastrointestinal Gastrointestinal: Reports abdominal pain; Denies diarrhea, nausea or vomiting Genitourinary Genitourinary ED: Denies dysuria Musculoskeletal Musculoskeletal: Denies myalgias Integumentary Denies rash Neurologic Neurologic: Denies headache(s) Hematologic/Lymphatic Hematologic/Lymphatic: Denies easy bleeding or easy bruising EXAM Physical Exam Const Vital Signs: 02/18/23 05:52 02/18/23 06:57 Temperature 96.7 F L Temperature Source Temporal Pulse Rate 75 75 Respiratory Rate 16 16 Blood Pressure 127/69 H 127/69 H Blood Pressure Mean 88 Pulse Ox 96 96 Oxygen Delivery Method Room Air Positive well nourished, well developed and obese General Appearance ED: well developed Nutritional Appearance: obese HEENT HEENT Narrative: Normocephalic atraumatic Eyes PERRL and EOMs intact bilaterally General Eye ED: Negative for scleral icterus Neck supple Neck Narrative: No nuchal rigidity or meningeal signs Chest Wall Chest Narrative: Reproducible pain on palpation along the costal margins on the right and left chest wall without bony deformity or crepitance Resp normal respiratory effort and clear to auscultation bilaterally Cardio regular rate and regular rhythm Rate: other Other Details: Radial pulses are plus 2 out of 4 bilaterally are equal and symmetric GI normal to inspection, nondistended, normoactive bowel sounds, soft to palpation, non-tender, non-distended and no masses GI Narrative: No voluntary guarding or rigidity. No pulsatile mass or fluid wave Auscultation: normoactive bowel sounds Palpation: soft Extremity normal to inspection Extremity Narrative: No asymmetric edema no pitting edema negative Homans' sign bilaterally Neuro oriented x3 and CN's II-XII intact bilaterally Sensorium / Orientation: alert Psych Psych Narrative: Patient has a flat affect Skin no rashes or lesions noted MDM MDM MDM Narrative Medical decision making narrative: Patient presented to ER with stable vitals and a nonfocal exam. She had reproducible chest wall pain with palpation which would indicate that acute coronary syndrome or pulmonary embolus or pneumonia or pneumothorax is less likely. She also had no focal pain on palpation of her abdomen without distention or guarding going against a postoperative bleed or potential ovarian cyst or torsion or any type of retained products. I discussed with patient the possibly of obtaining blood work urine sample and chest x-ray with SYSTEMS SPECIALIST consult to discuss potential need for ultrasound of her abdomen. After discussing this patient reported that she was fine and that she did not want any type of testing performed History & Record Review Discussion w/independent historian: Patient and Significant other Lab Data Attestation: I reviewed the patient's lab results. Discharge Plan Triage Chief Complaint: Female C/O ED Provider: Luan Matthews Dx/Rx/DC Orders Clinical Impression: Status post vaginal delivery, Chest wall pain, Bipolar 2 disorder Instructions: ED Chest Pain, Uncertain Cause Prescriptions: No Action hydroxyzine HCl 10 mg tablet 50 mg PO BID PRN PRN (Reason: Anxiety) nystatin [Nyamyc] 100,000 unit/gram powder 100,000 gm topical PRN PRN (Reason: Itching) Patient Comments: apply 1 APPLICATION topically if needed for rash (DME) Bilateral knee high (10-20) compression stockings See Rx Instructions .Route .MEDSUPPLY Qty: 2 0RF Rx Instructions: As directed ondansetron 4 mg tablet,disintegrating 4 mg PO TID PRN (Reason: nausea and vomiting) Qty: 90 3RF loratadine 10 mg tablet 10 mg PO DAILY PRN (Reason: Headache/sinus congestion) Qty: 30 4RF meclizine 25 mg tablet 25 mg PO TID PRN (Reason: dizziness) Qty: 90 3RF ergocalciferol (vitamin D2) 50,000 UNIT capsule 50,000 unit PO QWEEK famotidine [Pepcid] 20 mg Tablet 20 mg PO DAILY pantoprazole [Protonix] 40 mg tablet,delayed release (DR/EC) 40 mg PO DAILY ferrous sulfate 325 mg (65 mg iron) tablet 325 mg PO DAILY venlafaxine 25 mg Tablet 25 mg PO BID acetaminophen 500 mg Tablet 1,000 mg PO Q6H PRN PRN (Reason: Pain 1-10 Or Fever) Qty: 0 0RF Primary Care Provider: Christoph Gann Referrals: Christoph Gann DO [Primary Care Provider] - Disposition Disposition: Home, Self Care Discharge Date/Time: 02/18/23 06:59
== END 2023-02-18 06:59 | disposition home or self-care (01) ==
PROVIDERS: Emergency Provider Emergency Medicine; PCP Student in an Organized Health Care Education/Training Program; Visit Provider Emergency Medicine
DX: O99.893 Other specified diseases and conditions complicating puerperium (principal); F31.81 Bipolar II disorder; R10.31 Right lower quadrant pain; R07.89 Other chest pain; E66.9 Obesity, unspecified; O99.345 Other mental disorders complicating the puerperium; O99.215 Obesity complicating the puerperium
CPT/HCPCS: 99282

== ENCOUNTER 2023-04-21 19:54 | Emergency (ER) | payer BC, MEDICAID, SELFPAY ==
[2023-04-21 19:55] VITALS: BP 112/73; PULSE 95; RESP 16; TEMP 36.4; O2SAT 97; BMI 45.6
--- NOTE | 2023-04-21 20:29 | EX.ED.DYSGE1 ---
HPI <CHACHO Martin - Last Filed: 04/21/23 21:11> History of Present Illness Chief Complaint: Other, Pain/Inj Narrative Narrative: Patient is a 22-year-old female with history of obesity, bipolar, anemia, seizures who presents to the emergency department with right-sided neck pain. Patient states for the last 2 years, she is been having worsening pain to her neck. Every morning she wakes up, she cracks her neck and feels better. The last 48 hours has been unable to crack her neck, having worsening pain with turning her neck to the right. She also states that she has pain to her right shoulder blade to her right arm. She denies any injury, denies any fever chills or infectious symptoms. [facility] <CHACHO Martin - Last Filed: 04/21/23 21:11> [facility] Medical History (Updated 04/21/23 @ 21:07 by CHACHO Martin) Anemia Anemia Anemia, B12 deficiency Anxiety Arthritis Bipolar 2 disorder Bone fracture Depression Diarrhea FH: cholecystectomy Frequent headaches Gastrointestinal problem Generalized anxiety disorder GERD (gastroesophageal reflux disease) Gestational diabetes Gestational diabetes H/O emotional problems Hearing problem History of PCOS Hypoglycemia IBS (irritable bowel syndrome) Meniere disease OCD (obsessive compulsive disorder) PCOS (polycystic ovarian syndrome) depression PTSD (post-traumatic stress disorder) Recurrent UTI (urinary tract infection) Seasonal allergies Sleep apnea Sleep apnea Suicidal ideation Thyroid disorder Trauma UTI (urinary tract infection) Vision problems Vitamin deficiency Home Medications ergocalciferol (vitamin D2) 1,250 mcg (50,000 unit) capsule 50,000 unit PO QWEEK low levels 07/06/20 [History Last Taken 02/09/23] hydroxyzine HCl 10 mg tablet 50 mg PO BID PRN PRN Anxiety 11/16/21 [History Last Taken 02/12/23] nystatin 100,000 unit/gram topical powder (Nyamyc) 100,000 gm topical PRN PRN Itching 01/26/22 [History Last Taken 02/04/23] Bilateral knee high (10-20) compression stockings #2 ea 06/19/22 [Rx Last Taken Unknown] loratadine 10 mg tablet 10 mg PO DAILY PRN Headache/sinus congestion #30 tabs 06/19/22 [Rx Last Taken 02/06/23] meclizine 25 mg tablet 25 mg PO TID PRN dizziness #90 tabs 06/19/22 [Rx Last Taken 02/03/23] ondansetron 4 mg disintegrating tablet 4 mg PO TID PRN nausea and vomiting #90 tabs 06/19/22 [Rx Last Taken 02/12/23] famotidine 20 mg tablet (Pepcid) 20 mg PO DAILY Heartburn 02/02/23 [History Last Taken 02/09/23] ferrous sulfate 325 mg (65 mg iron) tablet 325 mg PO DAILY anemia 02/02/23 [History Last Taken 02/09/23] pantoprazole 40 mg tablet,delayed release (Protonix) 40 mg PO DAILY ulcer prevention 02/02/23 [History Last Taken 02/07/23 20:42 40 mg] venlafaxine 25 mg tablet 25 mg PO BID bipolar 02/02/23 [History Last Taken 02/12/23] acetaminophen 500 mg tablet 1,000 mg (2 x 500 mg) PO Q6H PRN PRN Pain 1-10 Or Fever #0 tabs 02/16/23 [Rx Last Taken Unknown] metaxalone 800 mg tablet 800 mg PO TID PRN muscle pain #20 tabs 04/21/23 [Rx Last Taken Unknown] Allergy/AdvReac Type Severity Reaction Status Date / Time adhesive tape Allergy Intermediate Rash Verified 04/21/23 19:58 chlorhexidine Allergy Mild Rash Verified 04/21/23 19:58 [From ChloraPrep Clear] isopropyl alcohol Allergy Mild Rash Verified 04/21/23 19:58 [From ChloraPrep Clear] NSAIDS (Non-Steroidal AdvReac Bleeding Verified 04/21/23 19:58 Anti-Inflamma Family History Mother Alcohol abuse Anemia Arthritis Father Alcohol abuse Grandmother Anemia Arthritis History of blood transfusion Hypertension Kidney disease Sister Asthma Seizures Grandfather Arthritis Depression Diabetes Surgical History Gastric bypass status for obesity H/O bariatric surgery History of ankle surgery History of ankle surgery History of tonsillectomy and adenoidectomy Hx of cholecystectomy Hx of tonsillectomy Social History Smoking Status: Never smoker second hand exposure: No alcohol intake: current alcohol intake frequency: holidays/special occasions only substance use type: does not use what type of physical activity do you participate in: other isac/caodaism: Hoahaoism seatbelt use: always ROS <CHACHO Martin - Last Filed: 04/21/23 21:11> ROS ED ROS Narrative Constitutional: Negative for fever, chills, weight loss, weakness Eyes: Negative for vision loss, vision change, double vision ENT: Negative for any sore throat, ear pain, congestion Cardiovascular: Negative for any chest pain, tightness, palpitations Respiratory: Negative for any cough, sputum production, hemoptysis, dyspnea, dyspnea on exertion, orthopnea Gastrointestinal: Negative for any abdominal pain, nausea, vomiting, diarrhea, constipation, blood in stool, blood in vomit : Negative for any urinary frequency, dysuria, retention, blood in urine Muscle skeletal: Negative for any muscle joint pain, stiffness, myalgias, arthralgias, back pain. Positive right-sided neck pain Neurological: Negative for any headache, syncope, numbness or tingling, dizziness Skin: Negative for any rashes, lumps, itching, abrasions, lacerations Psychiatric: Negative for any depression, anxiety, stress, suicidal ideation, homicidal ideation Hematologic: Negative for any easy bruising, excessive bruising, easy bleeding Allergies: Negative for any eczema, hives, rash EXAM <CHACHO Martin - Last Filed: 04/21/23 21:11> Physical Exam Narrative Exam Narrative: Vital signs reviewed. HEET: Head normocephalic atraumatic, TMs clear bilaterally. Posterior pharynx is clear, moist mucous membranes. Nares clear bilaterally. Neck: Supple with no lymphadenopathy or tenderness. No signs of meningismus. Patient does have pain on palpation to the right posterior neck. This goes into the trapezius muscle. When pressing on the trapezius muscle, as well as moving her right shoulder, it does cause pain down her right arm. +2 radial pulse. No weakness to upper extremities. cardiac: Regular rate and rhythm no murmurs gallops or rubs, equal peripheral pulses bilaterally. Respiratory: Lungs clear to auscultation bilaterally. No chest tenderness. Abdomen: Soft, nontender, nondistended. No abdominal bruit or pulsatile masses. No hepatosplenomegaly Extremities: No peripheral edema, no signs of gross trauma or deformity. Active full range of motion of all extremities. Neuro: Cranial nerves II through XII intact, no focal neurological deficits. Skin: Clean dry and intact with no rash, purpura, petechiae, vesicles or pustules. Backs/flank: No CVA tenderness, no midline spinal tenderness, no deformity. Psych: Normal mood and affect. No SI, HI or acute psychosis. Const Vital Signs: 04/21/23 19:55 04/21/23 20:55 Temperature 97.6 F L Temperature Source Temporal Pulse Rate 95 Respiratory Rate 16 Respiratory Effort Normal Respiratory Pattern Normal Blood Pressure 112/73 Blood Pressure Mean 86 Pulse Ox 97 Oxygen Delivery Method Room Air <Dr. Cooper Fernandez MD - Last Filed: 04/21/23 21:07> Physical Exam Const Vital Signs: 04/21/23 19:55 04/21/23 20:55 Temperature 97.6 F L Temperature Source Temporal Pulse Rate 95 Respiratory Rate 16 Respiratory Effort Normal Respiratory Pattern Normal Blood Pressure 112/73 Blood Pressure Mean 86 Pulse Ox 97 Oxygen Delivery Method Room Air [facility] <CHACHO Martin - Last Filed: 04/21/23 21:11> [facility] Treatment and Re-Evaluation :: Patient appears generally well, patient appears nontoxic, vital signs stable. Patient presents to the emergency department with right-sided neck pain. Physical examination consistent with a muscle skeletal strain. Patient has slight spasm with movement. Patient has no red flag signs. There is no midline spinal tenderness. Patient has history of this. At this time, patient placed on Skelaxin, she will use Tylenol at home. Patient will follow-up outpatient. All questions answered, patient at this time requires no advanced imaging. Patient has no radicular symptoms, fever or chills. There are no red flag signs such as spinal abscess, meningeal signs. Patient stable for discharge. <Dr. Cooper Fernandez MD - Last Filed: 04/21/23 21:07> [facility] Narrative Medical decision making narrative: I have personally performed a face to face assessment of the patient and have reviewed the SADNRA Note. I performed a substantive portion of the visit including all aspects of the following. My carbajal findings include: History is 22-year-old no prior neck history of surgery. Said stiffness to the right side of her neck for the last couple days. No fall injury or trauma. No fever or headache. Exam is [well-appearing 22-year-old female vital signs stable afebrile. HEENT exam unremarkable. Neck she has right-sided paracervical soft tissue tenderness and mild spasm. Consistent with paracervical strain and spasm. C-spine nontender left side normal. She has normal flexion extension. She has discomfort with rotating her head to the right. Trachea midline lungs clear. Heart regular rhythm. Chest wall and abdomen nontender. Moving all 4 extremities. Neurovascular intact. 5 of 5 fractionation supervisor strength dorsi plantarflexion intact. No radiculopathy.] Medical Decision Making [no imaging necessary. Consistent with cervical strain and spasm. Treatment with Skelaxin and Motrin.] Other additions or changes: [None] Discharge Plan Triage Chief Complaint: Other, Pain/Inj ED Midlevel Provider: Luis Rasheed ED Provider: Cooper Fernandez Dx/Rx/DC Orders Clinical Impression: Muscle spasm, Cervical muscle strain, Acute cervical myofascial strain Instructions: ED Muscle Spasm, ED Neck Sprain or Strain Prescriptions: New metaxalone 800 mg tablet 800 mg PO TID PRN (Reason: muscle pain) Qty: 20 0RF No Action hydroxyzine HCl 10 mg tablet 50 mg PO BID PRN PRN (Reason: Anxiety) nystatin [Nyamyc] 100,000 unit/gram powder 100,000 gm topical PRN PRN (Reason: Itching) Patient Comments: apply 1 APPLICATION topically if needed for rash (DME) Bilateral knee high (10-20) compression stockings See Rx Instructions .Route .MEDSUPPLY Qty: 2 0RF Rx Instructions: As directed ondansetron 4 mg tablet,disintegrating 4 mg PO TID PRN (Reason: nausea and vomiting) Qty: 90 3RF loratadine 10 mg tablet 10 mg PO DAILY PRN (Reason: Headache/sinus congestion) Qty: 30 4RF meclizine 25 mg tablet 25 mg PO TID PRN (Reason: dizziness) Qty: 90 3RF ergocalciferol (vitamin D2) 50,000 UNIT capsule 50,000 unit PO QWEEK famotidine [Pepcid] 20 mg Tablet 20 mg PO DAILY pantoprazole [Protonix] 40 mg tablet,delayed release (DR/EC) 40 mg PO DAILY ferrous sulfate 325 mg (65 mg iron) tablet 325 mg PO DAILY venlafaxine 25 mg Tablet 25 mg PO BID acetaminophen 500 mg Tablet 1,000 mg PO Q6H PRN PRN (Reason: Pain 1-10 Or Fever) Qty: 0 0RF Primary Care Provider: Christoph Gann Referrals: Christoph Gann DO [Primary Care Provider] - Activity Restrictions/Additional Instructions: Please follow-up outpatient. Perform gentle stretching. Disposition Disposition: Home, Self Care
[2023-04-21] MEDS: Metaxalone 800 MG Tablet PO (20:54)
== END 2023-04-21 21:13 | disposition home or self-care (01) ==
PROVIDERS: Emergency Provider Emergency Medicine; PCP Student in an Organized Health Care Education/Training Program; Visit Provider Emergency Medicine
DX: S16.1XXA Strain of muscle, fascia and tendon at neck level, initial encounter (principal); F31.81 Bipolar II disorder; Z68.42 Body mass index [BMI] 45.0-49.9, adult; X58.XXXA Exposure to other specified factors, initial encounter; F41.1 Generalized anxiety disorder; M62.838 Other muscle spasm; E66.9 Obesity, unspecified; Z79.899 Other long term (current) drug therapy
CPT/HCPCS: 99283

== ENCOUNTER 2023-09-21 05:09 | Emergency (ER) | payer BC, MEDICAID, SELFPAY ==
[2023-09-21 05:12] VITALS: BP 110/69; PULSE 70; RESP 18; TEMP 36.1; O2SAT 98; BMI 47.2
--- NOTE | 2023-09-21 05:22 | EDS_ITS ---
HPI HPI - Female History of Present Illness Chief Complaint: Vag Bld, Preg Narrative Narrative: 23-year-old G3, P2 at approximately 7 weeks gestation presents with vaginal bleeding. She states that she is 6 months from her second child, and that her IUD had fallen out, and now she is approximately 7 weeks . Her last menstrual period was in early July, 2 months ago. She may have had irregular periods in the past secondary to her PCOS. She saw her BEADER TENDER at the [facility] [place] yesterday where they performed an ultrasound and she states that the baby had a heartbeat and that she was approximately 7 weeks gestation. However, this evening at around 12:30 in the morning, 5 hours ago, she started having heavy vaginal bleeding. She states that it is a crime scene at her house, and she had been bleeding through her pads every 10 minutes. She is having pelvic cramping as well. She presents because of the heavy vaginal bleeding and cramping with . [facility] Medical History Anemia Anemia Anemia, B12 deficiency Anxiety Arthritis Bipolar 2 disorder Bone fracture Depression Diarrhea FH: cholecystectomy Frequent headaches Gastrointestinal problem Generalized anxiety disorder GERD (gastroesophageal reflux disease) Gestational diabetes Gestational diabetes H/O emotional problems Hearing problem History of PCOS Hypoglycemia IBS (irritable bowel syndrome) Meniere disease OCD (obsessive compulsive disorder) PCOS (polycystic ovarian syndrome) depression PTSD (post-traumatic stress disorder) Recurrent UTI (urinary tract infection) Seasonal allergies Sleep apnea Sleep apnea Suicidal ideation Thyroid disorder Trauma UTI (urinary tract infection) Vision problems Vitamin deficiency Home Medications ergocalciferol (vitamin D2) 1,250 mcg (50,000 unit) capsule 50,000 unit PO QWEEK low levels 07/06/20 [History Last Taken 02/09/23] hydroxyzine HCl 10 mg tablet 50 mg PO BID PRN PRN Anxiety 11/16/21 [History Last Taken 02/12/23] nystatin 100,000 unit/gram topical powder (Nyamyc) 100,000 gm topical PRN PRN Itching 01/26/22 [History Last Taken 02/04/23] ferrous sulfate 325 mg (65 mg iron) tablet 325 mg PO DAILY anemia 02/02/23 [History Last Taken 02/09/23] venlafaxine 25 mg tablet 25 mg PO BID bipolar 02/02/23 [History Last Taken 02/12/23] acetaminophen 500 mg tablet 1,000 mg (2 x 500 mg) PO Q6H PRN PRN Pain 1-10 Or Fever #0 tabs 02/16/23 [Rx Last Taken Unknown] omeprazole 40 mg capsule,delayed release 40 mg PO DAILY 06/18/23 [History Last Taken Unknown] fludrocortisone 0.1 mg tablet 0.1 mg PO QAM #30 tabs 07/24/23 [Rx Last Taken Unknown] loratadine 10 mg tablet 10 mg PO DAILY PRN Headache/sinus congestion #30 tabs 07/24/23 [Rx Last Taken Unknown] ondansetron 4 mg disintegrating tablet 4 mg PO TID PRN nausea and vomiting #90 tabs 07/24/23 [Rx Last Taken Unknown] sumatriptan succinate 50 mg tablet 50 mg PO .COMPLEX #9 tabs 07/24/23 [Rx Last Taken Unknown] topiramate 100 mg tablet 100 mg PO QPM #30 tabs 07/24/23 [Rx Last Taken Unknown] topiramate 50 mg tablet (Topamax) 50 mg PO QAM #30 tabs 07/24/23 [Rx Last Taken Unknown] Allergy/AdvReac Type Severity Reaction Status Date / Time adhesive tape Allergy Intermediate Rash Verified 09/21/23 05:10 povidone-iodine Allergy Mild Hives Verified 09/21/23 05:10 [From Scrub Care Povidone Iodine] NSAIDS (Non-Steroidal AdvReac Bleeding Verified 09/21/23 05:10 Anti-Inflamma Family History Mother Alcohol abuse Anemia Arthritis Father Alcohol abuse Grandmother Anemia Arthritis History of blood transfusion Hypertension Kidney disease Sister Asthma Seizures Grandfather Arthritis Depression Diabetes Surgical History Gastric bypass status for obesity H/O bariatric surgery History of ankle surgery History of ankle surgery History of tonsillectomy and adenoidectomy Hx of cholecystectomy Hx of tonsillectomy Social History Smoking Status: Never smoker second hand exposure: No alcohol intake: current alcohol intake frequency: holidays/special occasions only substance use type: does not use what type of physical activity do you participate in: other isac/hoahaoism: Religious seatbelt use: always ROS ROS ED ROS Narrative Constitutional: No fever, no chills. HEENT: No sore throat. No neck pain. No loss of vision. No rhinorrhea. Cardiovascular: No chest pain. No palpitations. No pedal edema. Respiratory: No cough, no shortness of breath. Abdominal: No abdominal pain. No nausea. No vomiting. Genitourinary: No dysuria. No hematuria. Positive vaginal bleeding with pregn tameka. Vaginal cramping. Musculoskeletal: No myalgias. No arthralgias. Neurologic: No headaches. No dizziness. No lightheadedness. Skin: No rash. No change in color. Psychiatric: No depression. No anxiety. EXAM Physical Exam Narrative Exam Narrative: Afebrile. Vital signs noted. HEENT: Normocephalic. Atraumatic. PERRL, EOMI. Neck soft and supple. No point tenderness or step off. Cardiovascular: Regular rate and rhythm. No murmurs, rubs, or gallops appreciated. Respiratory: No tachypnea. Lungs clear to auscultation bilaterally. Gastrointestinal: Abdomen soft, nontender, with normoactive bowel sounds. No rebound or guarding. Neurological: Awake. Alert. Nonfocal, nonlateralizing. Skin: No rash. Normal color. No pallor. Musculoskeletal: No pedal edema. Full range of motion extremities. Psychiatric: Mild anxiety. Almost tearful on examination. Const Vital Signs: 09/21/23 05:12 Temperature 96.9 F L Temperature Source Temporal Pulse Rate 70 Respiratory Rate 18 Blood Pressure 110/69 Blood Pressure Mean 82 Pulse Ox 98 Oxygen Delivery Method Room Air MDM MDM MDM Narrative Medical decision making narrative: Initially, patient did not want me to perform a pelvic exam. It will be difficult to assess how much vaginal bleeding she is having, but given her reported vaginal bleeding in , and the differential diagnosis is threatened miscarriage versus complete miscarriage. I reviewed her prior records and laboratory work. She is O+ like she had stated so I do not feel that RhoGAM is indicated. I will order a CBC, CMP, and quantitative beta-hCG. Additionally, transvaginal pelvic ultrasound was ordered as well. I was informed by the RN, that patient was refusing blood work. She had told me before I left the room that she was not sure that she wanted a pelvic exam performed. She was told that this was needed to assess the amount of bleeding that she was having. I did explain to her that it could be postponed for short time until after the blood draw. RN spent large amount of time explaining to the patient about refusal of care as she did not want blood work or the ultrasound or the pelvic examination. As these are all intercrural parts of her workup for vaginal bleeding with , when the patient refused care, I was informed by the RN that she had left the emergency department. Discharge Plan Triage Chief Complaint: Vag Bld, Preg ED Provider: Benito Garcia Dx/Rx/DC Orders Clinical Impression: Vaginal bleeding during , Refusal of care by patient Prescriptions: No Action hydroxyzine HCl 10 mg tablet 50 mg PO BID PRN PRN (Reason: Anxiety) nystatin [Nyamyc] 100,000 unit/gram powder 100,000 gm topical PRN PRN (Reason: Itching) Patient Comments: apply 1 APPLICATION topically if needed for rash ondansetron 4 mg tablet,disintegrating 4 mg PO TID PRN (Reason: nausea and vomiting) Qty: 90 4RF topiramate [Topamax] 50 mg tablet 50 mg PO QAM Qty: 30 4RF topiramate 100 mg tablet 100 mg PO QPM Qty: 30 4RF sumatriptan succinate 50 mg tablet 50 mg PO .COMPLEX Qty: 9 5RF Rx Instructions: 50 mg PO every two hours as needed for headache up to two tablets per day fludrocortisone 0.1 mg tablet 0.1 mg PO QAM Qty: 30 4RF loratadine 10 mg tablet 10 mg PO DAILY PRN (Reason: Headache/sinus congestion) Qty: 30 4RF ergocalciferol (vitamin D2) 50,000 UNIT capsule 50,000 unit PO QWEEK omeprazole 40 mg capsule,delayed release(DR/EC) 40 mg PO DAILY ferrous sulfate 325 mg (65 mg iron) tablet 325 mg PO DAILY venlafaxine 25 mg Tablet 25 mg PO BID acetaminophen 500 mg Tablet 1,000 mg PO Q6H PRN PRN (Reason: Pain 1-10 Or Fever) Qty: 0 0RF Primary Care Provider: Christoph Gann Referrals: Christoph Gann DO [Primary Care Provider] - Disposition Disposition: Elopement
--- NOTE | 2023-09-21 05:57 | ED.RN ---
patient is refusing IV and blood work. She does not want to wait for ultrasound also refusing pelvic exam. She is very tearful expressing having no privacy, having to share a bathroom with several comments on the amount of blood she is passing. refusing BSC and wipes. This RN attempt to educated the reasoning behind test. She continues to refuse stating I just want to know if I'm hemorrhaging or not. so I'll just bleed out while I wait for ultrasound then? I just want to go home. RN encouraged pt to at least let the doctor assess bleeding to help relieve her worries. pt continues to refuse. She dresses and keeps demanding to her significant other to leave. AMA paperwork reviewed and signed.
== END 2023-09-21 06:18 | disposition left against medical advice (07) ==
PROVIDERS: Emergency Provider Emergency Medicine; PCP Student in an Organized Health Care Education/Training Program; Visit Provider Emergency Medicine
DX: O20.9 Hemorrhage in early pregnancy, unspecified (principal); R10.2 Pelvic and perineal pain; Z3A.01 Less than 8 weeks gestation of pregnancy; O99.892 Other specified diseases and conditions complicating childbirth; K21.9 Gastro-esophageal reflux disease without esophagitis; O99.611 Diseases of the digestive system complicating pregnancy, first trimester; Z53.29 Procedure and treatment not carried out because of patient's decision for other reasons
CPT/HCPCS: 99282

== ENCOUNTER → 2024-02-11 | Outpatient (CLI) | payer BC, MEDICAID, SELFPAY ==
[2024-02-11 13:37] LABS: Erythrocyte Sedimentation Rate 4 mm/hr (0-30)
[2024-02-11 13:39] LABS: Absolute Lymphocyte Count 3.02 X10^3/uL (0.83-4.51); Absolute Neutrophil Count 6.8 X10^3/uL (2.0-7.7); Basophil# 0.07 X10^3/uL; Basophil% 0.7 % (0-1); Eosinophil# 0.16 X10^3/uL; Eosinophils% 1.5 % (0-5); Hematocrit 41.9 % (37-47); Lymphocyte # 3.02 X10^3/ul (0.83-4.51); Lymphocyte % 28.4 % (19-41); Mean Corpuscular Hgb 24.2 pg (27.0-32.0); Mean Platelet Vol. 10.8 fl (6.2-12.0); Monocyte# 0.55 X10^3/uL; Monocyte% 5.2 % (0-10); NRBC Flagged by Analyzer 0 % (0-5); Neutrophil % 63.9 % (47-70); Platelet Count 360 K/mm3 (150-450); RBC Distribution Width CV 16.2 % (11.6-14.6); Red Blood Count 5.37 M/mm3 (4.2-5.4); White Blood Count 10.6 K/mm3 (4.4-11.0)
[2024-02-11 14:29] LABS: CRP 2.98 mg/L (0.0-3.0); Free T3 2.7 pg/mL (2.18-3.98); Magnesium 2.5 mg/dL (1.6-2.6); Phosphorus 2.7 mg/dL (2.5-4.9); T4 Free Direct 1.01 ng/dL (0.76-1.46); Thyroid Stim Hormone (TSH) 0.68 uIU/mL (0.358-3.74)
[2024-02-13 15:25] LABS: Vitamin B12 401 pg/mL (211-911)
[2024-02-16 16:07] LABS: Anti-Centromere B Ab <0.2 AI (0.0-0.9); Anti-Chromatin <0.2 AI (0.0-0.9); Anti-Jo <0.2 AI (0.0-0.9); Anti-Scleroderma-70 AB <0.2 AI (0.0-0.9); Anti-dsDNA Ab <1 IU/mL (0-9); Beef <0.10 kU/L (Class 0); Chocolate <0.10 kU/L (Class 0); Codfish <0.10 kU/L (Class 0); Corn <0.10 kU/L (Class 0); Egg, Whole <0.10 kU/L (Class 0); Milk (Cow) <0.10 kU/L (Class 0); Mussels <0.10 kU/L (Class 0); Peanut <0.10 kU/L (Class 0); Pork <0.10 kU/L (Class 0); RNP Ab <0.2 AI (0.0-0.9); SJOGREN'S Anti-SS-A test < 0.2 AI (0.0-0.9); SJOGREN'S Anti-SS-B test < 0.2 AI (0.0-0.9); Salmon <0.10 kU/L (Class 0); Shrimp <0.10 kU/L (Class 0); Smith Ab <0.2 AI (0.0-0.9); Soybean <0.10 kU/L (Class 0); Tuna <0.10 kU/L (Class 0); Wheat <0.10 kU/L (Class 0)
[2024-02-18 11:09] LABS: ACCA 8 units (0-90); ALCA 6 units (0-60); AMCA 42 units (0-100); Albumin 3.7 g/dL (2.9-4.4); Alpha-1-Globulins 0.2 g/dL (0.0-0.4); Alpha-2-Globulins 0.7 g/dL (0.4-1.0); Cytoplasmic Ab (C-ANCA) <1:20 titer (Neg:<1:20); Endomysial Antibody IgA Negative (Negative); Immunoglobulin A 110 mg/dL (87-352); Immunoglobulin E 4 IU/mL (6-495); Immunoglobulin G 1092 mg/dL (586-1602); Immunoglobulin M 61 mg/dL (26-217); PROEL- TOTAL PROTEIN 6.7 g/dL (6.0-8.5); Perinuclear Ab (P-ANCA) <1:20 titer (Neg:<1:20); Zinc, Plasma or Serum 84 ug/dL (44-115); gASCA 17 units (0-50); t-Transglutaminase IgA <2 U/mL (0-3)
== END | disposition home or self-care (01) ==
PROVIDERS: PCP Student in an Organized Health Care Education/Training Program; Referring Provider Internal Medicine Gastroenterology; Visit Provider Internal Medicine Gastroenterology
DX: D51.9 Vitamin B12 deficiency anemia, unspecified (principal)
CPT/HCPCS: 36415; 82306; 82607; 82652; 82746; 82784; 82785; 83516; 83735; 84100; 84165; 84439; 84443; 84481; 84630; 85025; 85652; 86003; 86005; 86036; 86140; 86225; 86235; 86255; 86256; 86334; 86671

== ENCOUNTER → 2024-04-30 | Outpatient (CLI) | payer BC, MEDICAID, SELFPAY ==
--- NOTE | 2024-04-30 13:35 | MRI_ITS ---
STUDY: EXAMINATION - MRV BRAIN WITHOUT CONTRAST REASON FOR EXAM: Female, 23 years old. pseudotumor cerebrii TECHNIQUE: 3D [id number] (TOF) imaging was performed in a 1.5 surya MRI scanner. COMPARISON: None. FINDINGS: Normal flow within the superior sagittal sinus. Normal flow within the superficial cortical veins. Normal flow within the paired internal cerebral veins, vein of Aaron and straight sinus. Normal flow within the bilateral transverse and sigmoid sinuses. Normal flow within the bilateral jugular bulbs. MRI/MRV Head Without Contrast IMPRESSION: Normal unenhanced MRV of the brain. Electronically Signed: Dong Barkley MD at 11:10 EDT ,
== END | disposition home or self-care (01) ==
PROVIDERS: PCP Student in an Organized Health Care Education/Training Program; Referring Provider Psychiatry & Neurology Neurology; Visit Provider Psychiatry & Neurology Neurology
DX: G93.2 Benign intracranial hypertension (principal)
CPT/HCPCS: 70544

== ENCOUNTER 2025-03-15 19:15 | Outpatient (CLI) | payer BC, MEDICAID, SELFPAY ==
[2025-03-15 19:23] VITALS: BMI 53.1
[2025-03-15 19:41] VITALS: RESP 16; TEMP 36.6
[2025-03-15 20:09] VITALS: BP 129/65; PULSE 96
[2025-03-15 20:31] VITALS: BP 109/76; PULSE 106
[2025-03-15 20:38] VITALS: BP 113/76; PULSE 97
--- NOTE | 2025-03-15 20:46 | OB.TRI.HP_ITS ---
HPI - General General Date of Admission: 03/15/25 Date of Service: 03/15/25 Chief Complaint: headache HPI Narrative DARYA DEWITT, is a 24 F who presents at 24 week gestation with multiple complaints. She is concerned about pre e. She is upset her urine has not been checked in the office. She has a headache today that is not worse when laying flat. No vision loss. She reports spots in her vision that she has had for weeks. She feels dizzy at times. She has had nausea and vomiting throughout the . No RUQ pain. No ctx, vb, lof. PFSH PFSH Medical History Anemia, B12 deficiency Sleep apnea Recurrent UTI (urinary tract infection) Suicidal ideation Anemia FH: cholecystectomy Trauma Thyroid disorder depression Depression Anxiety Gestational diabetes Meniere disease Gestational diabetes Diarrhea Vitamin deficiency Vision problems IBS (irritable bowel syndrome) Frequent headaches Hearing problem Hypoglycemia Gastrointestinal problem H/O emotional problems UTI (urinary tract infection) Bone fracture Arthritis Seasonal allergies PCOS (polycystic ovarian syndrome) Sleep apnea Anemia GERD (gastroesophageal reflux disease) History of PCOS Generalized anxiety disorder PTSD (post-traumatic stress disorder) OCD (obsessive compulsive disorder) Bipolar 2 disorder Home Medications ?Medication ?Instructions ?Recorded ?Last Taken ?Type ergocalciferol (vitamin D2) 1,250 50,000 unit PO QWEEK low levels 07/06/20 03/10/25 History mcg (50,000 unit) capsule nystatin 100,000 unit/gram topical 100,000 gm topical PRN PRN Itching 01/26/22 02/04/23 History powder ([facility]) ferrous sulfate 325 mg (65 mg 325 mg PO DAILY anemia 0 02/02/23 03/15/25 History iron) tablet acetaminophen 500 mg tablet 1,000 mg (2 x 500 mg) PO Q 6H PRN 02/16/23 Unknown Rx PRN Pain 1-10 Or Fever #0 tabs loratadine 10 mg tablet 10 mg PO DAILY PRN Headache/ sinus 08/11/24 03/15/25 Rx congestion #30 tabs ondansetron 4 mg disintegrating 4 mg PO TID PRN nausea and 08/11/24 03/13/25 Rx tablet vomiting #90 tabs cariprazine 3 mg capsule (Vraylar) 3 mg PO DAILY 01/0603/14/25 History acetazolamide 250 mg tablet 250 mg PO BID 03/15/2512/04 History naratriptan 2.5 mg tablet 2.5 mg PO UD 03/15/25 Unknow n History Allergy/AdvReac Type Severity Reaction Status Date / Time adhesive tape Allergy Intermediate Rash Verified 03/15/25 19:37 povidone-iodine (From Scrub Allergy Mild Hives Verified 03/15/25 19:37 Care Povidone Iodine) NSAIDS (Non-Steroidal AdvReac Bleeding Verified 03/15/25 19:37 Anti-Inflamma Family History Mother Alcohol abuse Anemia Arthritis Father Alcohol abuse Grandmother Anemia Arthritis History of blood transfusion Hypertension Kidney disease Sister Asthma Seizures Grandfather Arthritis Depression Diabetes Surgical History History of ankle surgery History of tonsillectomy and adenoidectomy Gastric bypass status for obesity History of ankle surgery Hx of cholecystectomy H/O bariatric surgery Hx of tonsillectomy Social History Smoking Status: Never smoker second hand exposure: No alcohol intake: current alcohol intake frequency: holidays/special occasions only substance use type: does not use caffeine: Yes what type of physical activity do you participate in: other isac/evangelical: Anabaptist seatbelt use: always History Elective abortions Hx Para 1 Spontaneous abortions Hx # Term Pregnancies Ectopic pregnancies Hx # Pregnancies Multiple births # of living children Physical Exam Const alert and no apparent distress General Appearance: comfortable Resp normal respiratory effort GI soft to palpation, non-tender and non-distended Extremity normal to inspection Neuro deep tendon reflexes 2+ bilaterally NST FHR Rate Baby A Baseline: 140 Variability:: Moderate Accelerations:: None Decelerations:: Variable (occasional) NST Reactive:: Appropriate for gestational age Uterine Activity:: no contractions Assessment & Plan (1) 24 weeks gestation of : (2) Benign intracranial hypertension: (3) Headache in : PLAN: Serial BP's normal. P/c ratio sent. Patient declines pre e labs and u nderstands my recommendation to complete a CBC and CMP. Low suspicion for pre e at this time. The patient did not have an in person visit with neurology and she missed her eye exam that was scheduled. Discussed my recommendation is for transport to a tertiary care center for coordination of care with M and neurology given a change in her symptoms. Patient declines transport. Patient is frustrated and declines further care. She states she would rather go home and be comfortable. She declines further treatment for her headache. She understands going home is against my recommendation, and my recommendation is for further evaluation at a tertiary care center.
--- NOTE | 2025-03-15 21:00 | MDS.RN ---
provider ordered CBC, CMP, PCR to be sent to lab, this RN was able to collect urine and send PCR. this RN contacted lab to draw pt blood work. pt then declined labs and transport to a bigger facility. This RN and provider urged pt to follow up with her neurologist and go to [facility] to be seen by their OB and Neurology team. pt declined further care and would like to be discharged home. provider discussed follow up care and to contact the office with further concerns or questions. pt ambulated off unit with her significant other.
[2025-03-15 21:14] LABS: Creatinine, Urine (random) 61.50 mg/dL (28.00-217.00); Protein, Urine (Random) 9.7 mg/dL (0.0-12.0); Protein:Creat Ratio 158 mg/g CRE (0-200)
== END 2025-03-15 20:45 | disposition home or self-care (01) ==
LOC: WPOUT 19:19 → WP 19:19
PROVIDERS: Obstetrics & Gynecology; PCP Student in an Organized Health Care Education/Training Program; Referring Provider Advanced Practice Midwife; Visit Provider Advanced Practice Midwife
DX: O99.891 Other specified diseases and conditions complicating pregnancy (principal); R51.9 Headache, unspecified; K21.9 Gastro-esophageal reflux disease without esophagitis; Z79.899 Other long term (current) drug therapy; O99.352 Diseases of the nervous system complicating pregnancy, second trimester; G93.2 Benign intracranial hypertension; Z3A.24 24 weeks gestation of pregnancy; O99.612 Diseases of the digestive system complicating pregnancy, second trimester
CPT/HCPCS: 59050; 82570; 84156; 99221; G0378

== ENCOUNTER 2025-04-13 10:20 | Outpatient (CLI) | payer BC, MEDICAID, SELFPAY ==
[2025-04-13 10:49] VITALS: PULSE 97; O2SAT 93
[2025-04-13 10:50] VITALS: BP 108/57; PULSE 91; RESP 16
[2025-04-13 10:54] VITALS: PULSE 97; O2SAT 96
[2025-04-13 10:59] VITALS: PULSE 91; O2SAT 96
--- NOTE | 2025-04-13 22:59 | OB.TRI.NOTE ---
HPI - General General Date of Admission: 04/13/25 Date of Service: 04/13/25 Chief Complaint: decreased FM HPI Narrative DARYA DEWITT, is a 24 F who presents w/ decreased FM Maternal Data Information Gestational age: 28 [facility] Medical History Anemia, B12 deficiency Sleep apnea Recurrent UTI (urinary tract infection) Suicidal ideation Anemia FH: cholecystectomy Trauma Thyroid disorder depression Depression Anxiety Gestational diabetes Meniere disease Gestational diabetes Diarrhea Vitamin deficiency Vision problems IBS (irritable bowel syndrome) Frequent headaches Hearing problem Hypoglycemia Gastrointestinal problem H/O emotional problems UTI (urinary tract infection) Bone fracture Arthritis Seasonal allergies PCOS (polycystic ovarian syndrome) Sleep apnea Anemia GERD (gastroesophageal reflux disease) History of PCOS Generalized anxiety disorder PTSD (post-traumatic stress disorder) OCD (obsessive compulsive disorder) Bipolar 2 disorder Home Medications ?Medication ?Instructions ?Recorded ?Last Taken ?Type ergocalciferol (vitamin D2) 1,250 50,000 unit PO QWEEK low levels 07/06/20 03/10/25 History mcg (50,000 unit) capsule nystatin 100,000 unit/gram topical 100,000 gm topical PRN PRN Itching 01/26/22 02/04/23 History powder ([facility] [place]) ferrous sulfate 325 mg (65 mg 325 mg PO DAILY anemia 02/02/23 03/15/25 History iron) tablet acetaminophen 500 mg tablet 1,000 mg (2 x 500 mg) PO Q6H PRN 02/16/23 Unknown Rx PRN Pain 1-10 Or Fever #0 tabs loratadine 10 mg tablet 10 mg PO DAILY PRN Headache/sinus 08/11/24 03/15/25 Rx congestion #30 tabs ondansetron 4 mg disintegrating 4 mg PO TID PRN nausea and 08/11/24 03/13/25 Rx tablet vomiting #90 tabs cariprazine 3 mg capsule (Vraylar) 3 mg PO DAILY 01/06/25 03/14/25 History acetazolamide 250 mg tablet 250 mg PO BID 03/15/25 03/15/25 History naratriptan 2.5 mg tablet 2.5 mg PO UD 03/15/25 Unknown History ferrous gluconate 324 mg (38 mg 324 mg PO QDAY #30 tabs 03/31/25 Unknown Rx iron) tablet Allergy/AdvReac Type Severity Reaction Status Date / Time adhesive tape Allergy Intermediate Rash Verified 03/31/25 15:05 povidone-iodine (From Scrub Allergy Mild Hives Verified 03/31/25 15:05 Care Povidone Iodine) NSAIDS (Non-Steroidal AdvReac Bleeding Verified 03/31/25 15:05 Anti-Inflamma Family History Mother Alcohol abuse Anemia Arthritis Father Alcohol abuse Grandmother Anemia Arthritis History of blood transfusion Hypertension Kidney disease Sister Asthma Seizures Grandfather Arthritis Depression Diabetes Surgical History History of ankle surgery History of tonsillectomy and adenoidectomy Gastric bypass status for obesity History of ankle surgery Hx of cholecystectomy H/O bariatric surgery Hx of tonsillectomy Social History Smoking Status: Never smoker second hand exposure: No alcohol intake: current alcohol intake frequency: holidays/special occasions only substance use type: does not use caffeine: Yes what type of physical activity do you participate in: other isac/restorationist: Scientology seatbelt use: always History Elective abortions Hx Para 1 Spontaneous abortions Hx # Term Pregnancies Ectopic pregnancies Hx # Pregnancies Multiple births # of living children NST FHR Rate Baby A Baseline: 135 Variability:: Moderate Accelerations:: 15 x 15 Decelerations:: None NST Reactive:: Yes Uterine Activity:: no regular ctxs Assessment & Plan (1) High-risk in third trimester: COMMENT: NST reactive, appreicates FM now. D/c home and f/u as scheduled or prn. (2) 28 weeks gestation of :
== END 2025-04-13 11:05 | disposition home or self-care (01) ==
LOC: WPOUT 10:29 → WP 10:29
PROVIDERS: PCP Student in an Organized Health Care Education/Training Program; Referring Provider Obstetrics & Gynecology; Visit Provider Obstetrics & Gynecology
DX: O36.8130 Decreased fetal movements, third trimester, not applicable or unspecified (principal); O99.613 Diseases of the digestive system complicating pregnancy, third trimester; K21.9 Gastro-esophageal reflux disease without esophagitis; Z3A.28 28 weeks gestation of pregnancy
CPT/HCPCS: 59025; 59050; 99221; G0378